=== PATIENT | female | born 1975 | race Caucasian/White ===

== ENCOUNTER 2017-09-19 09:17 | Emergency (ER) | payer OTHER ==
--- OUTSIDE RECORDS SUMMARY | 2017-09-19 09:28 | XMS REPORT | Clinical Summary ---
:1975 Author Organization [facility] Address [address] [place] [address] Care Team Providers Name Role Phone Darwin Mahoney MD Primary Care Provider Allergies Active Allergy Reactions Severity Noted Date Comments Codeine 09/22/2015 Penicillins 09/22/2015 Hydrocodone-Acetaminophen 09/22/2015 Current Medications Prescription Sig. Disp. Refills Start Date End Date Status ibuprofen Take 200 mg by Active (ADVIL,MOTRIN) 200 MG mouth every 6 tablet (six) hours as needed for mild pain. divalproex (DEPAKOTE) Take 500 mg by Active 500 MG 24 hr tablet mouth. 2 tabs at night omeprazole (PriLOSEC) Take 40 mg by Active 40 MG capsule mouth daily. SILENOR 3 mg tablet Take 1 tablet 0 05/14/2017 Active by mouth nightly. ALPRAZolam (XANAX) 1 Take 1 mg by Active MG tablet mouth 3 (three) times a day. propranolol (INDERAL) Take 20 mg by Active 20 MG tablet mouth 2 (two) times a day. PROVENTIL HFA 90 Inhale 1 puff 18 g 2 07/22/2017 Active mcg/actuation every 6 (six) inhalerIndications: hours as Chronic obstructive needed for pulmonary disease, shortness of unspecified COPD type breath. cariprazine (VRAYLAR) Take 4.5 mg by Active 4.5 mg capsule mouth daily. levothyroxine Take 1 tablet 30 tablet 2 08/21/2017 Active (SYNTHROID, LEVOXYL) (25 mcg total) 8 25 mcg by mouth every tabletIndications: morning for 30 Hypothyroidism, days. unspecified type furosemide (LASIX) 20 Take 1 tablet 60 tablet 1 08/21/2017 Active mg tabletIndications: (20 mg total) 9 Leg swelling by mouth 2 (two) times a day as needed (fluid retention). albuterol (VENTOLIN Inhale 2 puffs 1 Inhaler 5 09/17/2017 Active HFA) 90 mcg/actuation every 6 (six) 9 inhaler hours as needed for wheezing. INVEGA SUSTENNA 156 INJECT 1 0 07/15/2015 Discontinued mg/mL syringe INJECTION IM 8 ONCE ON 07/18/2015 sertraline (ZOLOFT) Take 50 mg by Discontinued 50 MG tablet mouth daily. 8 diazePAM (VALIUM) 5 Take 5 mg by Discontinued MG tablet mouth every 8 8 (eight) hours as needed for anxiety. QUEtiapine (SEROquel) Take 200 mg by Discontinued 200 MG tablet mouth nightly. 8 3 tabs at night benztropine Take 1 mg by Discontinued (COGENTIN) 1 MG mouth daily. 8 tablet DIPHENHYDRAMINE HCL Take by mouth. Discontinued (BENADRYL ORAL) 2 tabs at 8 night levothyroxine Take 1 tablet 30 tablet 2 06/29/2016 Discontinued (SYNTHROID, LEVOXYL) (25 mcg total) 8 25 mcg by mouth every tabletIndications: morning for 30 Hypothyroidism, days. unspecified levothyroxine Take 1 tablet 30 tablet 0 09/10/2016 Discontinued (SYNTHROID, LEVOXYL) (25 mcg total) 7 25 mcg tablet by mouth every morning for 30 days. levothyroxine Take One half 45 tablet 0 09/20/2016 Discontinued (SYNTHROID, LEVOXYL) ( 1/2) tbl 7 75 mcg daily am tabletIndications: Hypothyroidism, unspecified levothyroxine Take One half 45 tablet 0 01/28/2017 Discontinued (SYNTHROID, LEVOXYL) ( 1/2) tbl 8 75 mcg tablet daily am ARIPiprazole Take 15 mg by Discontinued (ABILIFY) 15 MG mouth daily. 8 tablet levothyroxine Take 1 tablet 30 tablet 2 03/15/2017 Discontinued (SYNTHROID, LEVOXYL) (25 mcg total) 8 25 mcg by mouth every tabletIndications: morning for 30 Hypothyroidism, days. unspecified type sertraline (ZOLOFT) Take 25 mg by Discontinued 25 MG tablet mouth daily. 8 azithromycin Take 2 tablets 6 tablet 0 05/22/2017 (ZITHROMAX) 250 MG the first day, 8 tabletIndications: then 1 tablet Chronic obstructive daily for 4 pulmonary disease, days. unspecified COPD type albuterol (PROAIR Inhale 1 puff 18 g 1 05/22/2017 Discontinued HFA,PROVENTIL every 6 (six) 8 HFA,VENTOLIN HFA) 90 hours as mcg/actuation needed for inhalerIndications: shortness of Chronic obstructive breath. pulmonary disease, unspecified COPD type predniSONE Take 1 tablet 5 tablet 0 05/22/2017 (DELTASONE) 20 mg (20 mg total) 8 tabletIndications: by mouth daily Chronic obstructive for 5 days. pulmonary disease, unspecified COPD type Active Problems Problem Noted Date Obesity, unspecified obesity severity, unspecified obesity type 08/21/2017 Thrombocytopenia 05/23/2017 Tremor 03/15/2017 Overview: 05/19 pt saw neurologist who diagnosed w Parkinson ds Palpitations 06/27/2016 Overview: 02/16 MCNULTY was negative Gastroesophageal reflux disease without esophagitis 02/15/2016 Hypothyroidism 09/22/2015 Overview: 03/29/2017 US: Mildly heterogeneous nonenlarged thyroid gland. Bipolar 1 disorder 09/22/2015 Overview: FU w psych Tobacco use 09/22/2015 Encounters Date Type Specialty Care Team Description 09/17/2017 Telephone Family Medicine Caroline Priest RN 09/02/2017 Office Visit Cardiology Yvette Gunter, Essential hypertension ( Primary Dx); Pain in both lower extremities; Edema, unspecified type 08/27/2017 Office Visit Family Medicine Maru, Tremor (Primary Dx); MD Darwin Tobacco use 08/27/2017 Telephone Family Darwin Montes MD 08/21/2017 Office Visit Family Juwan Mahoney, Hypothyroidism, unspecified type (Primary Dx); MD Darwin Tremor; Palpitations; Bipolar 1 disorder; Tobacco use; Leg swelling; Obesity, unspecified obesity severity, unspecified obesity type; Screening for breast cancer 08/19/2017 Lab Lab [facility], Hypothyroidism, unspecified type; MD Darwin Screening for rheumatic disorder 07/22/2017 Refill Family Medicine Maru, Chronic obstructive MD Darwin pulmonary disease, unspecified COPD type 06/10/2017 Telephone Family Medicine Darwin Mahoney MD 06/06/2017 Hospital Encounter Fadi Lorenzo, essential Joseph Bills MD 06/06/2017 Hospital Encounter Fadi Lorenzo essential Lyndon F., MD 06/06/2017 Ancillary Orders Fadi Lorenzo essential Lyndon F., MD 05/28/2017 Transcribe Orders Radiology Fadi Elizabeth essential Lyndon F., MD (Primary Dx) 05/27/2017 Telephone Internal Medicine Darwin Mahoney MD 05/24/2017 Lab Lab [facility] Hypothyroidism, unspecified type; MD Darwin Screening for rheumatic disorder 05/23/2017 Orders Only Family Medicine Lisseth Brito MD 05/22/2017 Office Visit Family Medicine Maru, Hypothyroidism, unspecified type (Primary Dx); MD Darwin Palpitations; Tremor; Bipolar 1 disorder; Screening for rheumatic disorder; Chronic obstructive pulmonary disease, unspecified COPD type; Tobacco use 05/22/2017 Telephone Family Medicine Darwin Mahoney MD 03/29/2017 Telephone Family Medicine Darwin Mahoney MD 03/15/2017 Office Visit Family Medicine Maru Hypothyroidism, unspecified type (Primary Dx); MD Darwin Palpitations; Bipolar 1 disorder; Tobacco use 03/08/2017 Lab Lab [facility] Hypothyroidism MD Darwin 01/28/2017 Refill Family Medicine Haleigh Howard LVN 09/20/2016 Orders Only Family Medicine Miriam Mahoney Branka, MD unspecified (Primary Dx) 09/19/2016 Lab Lab [facility], Hypothyroidism MD Darwin after 09/18/2016 Family History Medical History Relation Name Comments Heart disease Father Heart failure Father COPD Mother Heart attack Mother Heart disease Mother Heart failure Mother Hypertension Mother Relation Name Status Comments Brother Alive Father Alive Mother Alive Social History Tobacco Use Types Packs/Day Years Used Date Current Every Day Smoker Cigarettes Smokeless Tobacco: Never Used Tobacco Cessation: Ready to Quit: No; Counseling Given: Yes Comments: 5 wks Alcohol Use Drinks/Week oz/Week Comments No Sex Assigned at Date Recorded Not on file Last Filed Vital Signs Vital Sign Reading Time Taken Blood Pressure 106/61 08/27/2017 11:24 AM CDT Pulse 70 08/27/2017 11:24 AM CDT Temperature 36.4 C (97.5 F) 08/27/2017 11:24 AM CDT Respiratory Rate 18 08/27/2017 11:24 AM CDT Oxygen Saturation 100% 08/27/2017 11:24 AM CDT Inhaled Oxygen Concentration - - Weight 91.2 kg (201 lb) 08/27/2017 11:24 AM CDT Height 165.1 cm (5' 5") 08/27/2017 11:24 AM CDT Body Mass Index 33.45 08/27/2017 11:24 AM CDT Plan of Treatment Date Type Specialty Care Team Description 09/27/2017 Appointment Procedural Cardiology Yvette Gunter MD [address] [facility] [address] [place] [address] [phone] 09/27/2017 Appointment Procedural Cardiology Yvette Gunter MD [address] [facility] [address] [place] [address] [phone] 09/30/2017 Appointment Procedural Cardiology Yvette Gunter MD [address] [facility] [address] [place] [address] [phone] 11/21/2017 Office Visit Family Medicine Darwin Mahoney MD [address] [facility] [address] [place] [address] 11/22/2017 Office Visit Neurology Todd Massey MD [address] [facility] [address] [place] [address] [phone] Health Maintenance Due Date Last Done Comments BREAST CANCER SCREENING 1975 INFLUENZA VACCINE 03/15/2018 Postponed from 10/02/2017 (Patient Refused) CERVICAL CANCER SCREENING 08/21/2018 Postponed from 1997 (Patient Refused) Procedures Procedure Name Priority Date/Time Associated Diagnosis Comments ECG 12-LEAD Routine 09/02/2017 10:09 Essential hypertension Results for this AM CDT procedure are in the results section. THYROID STIMULATING Routine 08/19/2017 11:38 Hypothyroidism, Results for this HORMONE AM CDT unspecified type procedure are in Screening for the results rheumatic disorder section. T4, FREE Routine 08/19/2017 11:38 Hypothyroidism, Results for this AM CDT unspecified type procedure are in Screening for the results rheumatic disorder section. NM BRAIN SPECT W I Routine 06/06/2017 2:36 Tremor, essential Results for this 123 DATSCAN PM CDT procedure are in the results section. SEDIMENTATION RATE Routine 05/24/2017 11:28 Screening for Results for this AM CDT rheumatic disorder procedure are in Hypothyroidism, the results unspecified type section. RHEUMATOID FACTOR Routine 05/24/2017 11:28 Screening for Results for this AM CDT rheumatic disorder procedure are in Hypothyroidism, the results unspecified type section. C-REACTIVE PROTEIN Routine 05/24/2017 11:28 Screening for Results for this AM CDT rheumatic disorder procedure are in Hypothyroidism, the results unspecified type section. URIAH SCREEN W IFA W Routine 05/24/2017 11:28 Screening for Results for this REFLEX TO TITER AM CDT rheumatic disorder procedure are in Hypothyroidism, the results unspecified type section. THYROID PANEL WITH Routine 05/20/2017 12:00 TSH AM CDT US THYROID Routine 03/27/2017 11:40 Hypothyroidism, Results for this AM REGISTERED MEDICAL TRANSCRIPTIONIST unspecified type procedure are in the results section. THYROID STIMULATING Routine 03/08/2017 11:59 Hypothyroidism Results for this HORMONE AM REGISTERED MEDICAL TRANSCRIPTIONIST procedure are in the results section. THYROID STIMULATING Routine 03/08/2017 11:59 Hypothyroidism Results for this HORMONE AM REGISTERED MEDICAL TRANSCRIPTIONIST procedure are in the results section. T4, FREE Routine 03/08/2017 11:59 Hypothyroidism Results for this AM REGISTERED MEDICAL TRANSCRIPTIONIST procedure are in the results section. THYROID STIMULATING Routine 09/19/2016 11:28 Hypothyroidism Results for this HORMONE AM CDT procedure are in the results section. T4, FREE Routine 09/19/2016 11:28 Hypothyroidism Results for this AM CDT procedure are in the results section. T4 Routine 09/19/2016 11:28 Hypothyroidism Results for this AM CDT procedure are in the results section. T3, FREE Routine 09/19/2016 11:28 Hypothyroidism Results for this AM CDT procedure are in the results section. T3 Routine 09/19/2016 11:28 Hypothyroidism Results for this AM CDT procedure are in the results section. after 09/18/2016 Results ECG 12 lead (09/02/2017 10:09 AM) Ventricular rate 99 [facility] Atrial rate 99 [facility] QRSD interval 64 [facility] QT interval 314 [facility] QTC interval 402 [facility] QRS axis 1 71 [facility] T wave axis -82 [facility] EKG impression Sinus tachycardia-Poor R wave progression-ST [facility] MUSE & T wave abnormality, consider inferior ischemia-Abnormal ECG-No previous ECGs available- Performing Organization Address City/[facility] Phone Number [facility] MUSE [address] [place] [address] Thyroid stimulating hormone (08/19/2017 11:38 AM)Only the most recent of4 resultswithin the time period is included. TSH 6.78 (H) mIU/L [facility] [place] Comment: Reference Range > or=20 Years0.40-4.50 Ranges First trimester0.26-2.66 Second trimester 0.55-2.73 Third trimester0.43-2.91 Specimen Blood Resulting Agency Comment Performing Organization Information: Site ID: [id number] Name: [facility] Lab Address: [address] [place] [phone] Director: Milagros Cueva Performing Organization Address [facility] Phone Number [employer] [address] [address] T4, free (08/19/2017 11:38 AM)Only the most recent of3 resultswithin the time period is included. T4, free 1.0 0.8 - 1.8 ng/dL [facility] [place] Specimen Blood Resulting Agency Comment Performing Organization Information: Site ID: [id number] Name: [facility] Lab Address: [address] [place] [phone] Director: Milagros Cueva Performing Organization Address [facility] Number [employer] [address] [address] NM Brain Spect W I 123 Datscan (06/06/2017 2:36 PM) Narrative Performed At PROCEDURE: NM BRAIN SPECT W I 123 DATSCAN RADIANT INDICATION: G25.0 Essential tremor, G25 TECHNIQUE: The patient was pretreated with potassium iodide drops for thyroid protection and then injected with 4 mCi of I-123 DaTscan IV. Brain SPECT imaging was then performed. FINDINGS: Account for slight anatomic asymmetry there is preserved tracer uptake in the caudate and putamen bilaterally. IMPRESSION: Normal DaTscan study. No scintigraphic 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 [facility]-[id number] Procedure Note Interface, Radiology Results Incoming - 06/06/2017 3:04 PM CDT PROCEDURE: NM BRAIN SPECT W I 123 DATSCAN INDICATION: G25.0 Essential tremor, G25 TECHNIQUE: The patient was pretreated with potassium iodide drops for thyroid protection and then injected with 4 mCi of I-123 DaTscan IV. Brain SPECT imaging was then performed. FINDINGS: Account for slight anatomic asymmetry there is preserved tracer uptake in the caudate and putamen bilaterally. IMPRESSION: Normal DaTscan study. No scintigraphic 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 [facility]-[id number] Performing Organization Address City/[facility]/Zipcode Phone Number [facility] [address] [place] [address] URIAH SCREEN W IFA W REFLEX TO TITER (05/24/2017 11:28 AM) URIAH screen NEGATIVE NEGATIVE [facility] Comment: URIAH IFA is a first line screen for detecting the presence of up to approximately 150 autoantibodies in various autoimmune diseases. A negative URIAH IFA result suggests URIAH-associated autoimmune diseases are not present at this time. Visit Physician FAQs for interpretation of all antibodies in the [place], prevalence, and association with diseases at http://education.[employer].com/ faq/IDR271 Specimen Blood Resulting Agency Comment Performing Organization Information: Site ID: [id number] Name: [facility] Lab Address: [address] [place] [address] Director: Dr. Clemente Nolan Performing Organization Address City/[facility] Phone Number [facility] [address] [place] [address] Sedimentation rate (05/24/2017 11:28 AM) Sedimentation rate 1 < OR=20 mm/h [facility] [place] Specimen Blood Resulting Agency Comment Performing Organization Information: Site ID: [id number] Name: [facility] Lab Address: [address] [place] [address] Director: Milagros Cueva MD Performing Organization Address [facility] Phone Number [employer] [place] [address] [place] [address] Rheumatoid factor (05/24/2017 11:28 AM) Rheumatoid factor <14 <14 IU/mL [facility] [place] Specimen Blood Resulting Agency Comment Performing Organization Information: Site ID: [facility] Name: [facility] Lab Address: [address] [place] [phone] Director: Milagros Cueva MD Performing Organization Address City/State/[facility] Phone Number [employer] [address] [address] C-reactive protein (05/24/2017 11:28 AM) CRP 1.3 <8.0 mg/L [facility] [place] Specimen Blood Resulting Agency Comment Performing Organization Information: Site ID: [facility] Name: [employer] [facility] Lab Address: [address] [place] [phone] Director: Milagros Cueva MD Performing Organization Address [facility] Unit[facility] Phone Number [place] [facility] [address] [address] Thyroid Panel With TSH (05/20/2017) Specimen Blood Narrative Performed At US Thyroid (03/27/2017 11:40 AM) Narrative Performed At EXAMINATION:US THYROID RADIANT CLINICAL HISTORY:E03.9 Hypothyroidismunspecified, Abnormal thyroid function tests COMPARISON:None. TECHNIQUE:Sonographic evaluation of the thyroid. FINDINGS: Right lobe measures or by 1.4 x 1.6 cm.Left lobe measures 4.4 x 1.3 x 1.3 cm. The isthmus is 2.4 cm. There are 2 small echogenic foci, likely small calcifications measuring 2 to 3 mm, in the right lower thyroid. There is a 3 mm hypoechoic nodule or cyst in the upper pole the left thyroid. The thyroid gland parenchyma is otherwise mildly heterogeneous. IMPRESSION: Mildly heterogeneous nonenlarged thyroid gland. [facility]-[id number] Procedure Note Hm Interface, Radiology Results Incoming - 03/27/2017 1:10 PM REGISTERED MEDICAL TRANSCRIPTIONIST EXAMINATION: US THYROID CLINICAL HISTORY: E03.9 Hypothyroidism unspecified, Abnormal thyroid function tests COMPARISON: None. TECHNIQUE: Sonographic evaluation of the thyroid. FINDINGS: Right lobe measures or by 1.4 x 1.6 cm. Left lobe measures 4.4 x 1.3 x 1.3 cm. The isthmus is 2.4 cm. There are 2 small echogenic foci, likely small calcifications measuring 2 to 3 mm, in the right lower thyroid. There is a 3 mm hypoechoic nodule or cyst in the upper pole the left thyroid. The thyroid gland parenchyma is otherwise mildly heterogeneous. IMPRESSION: Mildly heterogeneous nonenlarged thyroid gland. [facility]-[id number] Performing Organization Address City/[facility]/Zipcode Phone Number [facility] [address] [place] [address] T3, free (09/19/2016 11:28 AM) T3, free 2.1 (L) 2.3 - 4.2 pg/mL [facility] [place] Specimen Blood Resulting Agency Comment Performing Organization Information: Site ID: [facility] Name: [facility] Lab Address: [address] [place] [phone] Director: Milagros Cueva MD Performing Organization Address [facility] Phone Number [employer] [address] [address] T3 (09/19/2016 11:28 AM) T3 77 76 - 181 ng/dL [facility] Specimen Blood Resulting Agency Comment Performing Organization Information: Site ID: [facility] Name: [employer] [facility] Lab Address: [address] [place] [phone] Director: Milagros Cueva MD Performing Organization Address [facility] Phone Number [place] [facility] [address] [address] T4 (09/19/2016 11:28 AM) T4 6.6 4.5 - 12.0 mcg/dL [facility] [place] Specimen Blood Resulting Agency Comment Performing Organization Information: Site ID: [facility] Name: [facility] Lab Address: [address] [place] [phone] Director: Milagros Cueva MD Performing Organization Address [facility] Phone Number [employer] [address] [address] after 09/18/2016 Insurance Payer Benefit Plan / Group Subscriber ID Type Phone Address MEDICARE MEDICARE PART A AND B xxxxxxxxxx Medicare [place], [place] MEDICAID MEDICAID xxxxxxxxx Medicaid [phone] [place], [address] [place] [address]
[2017-09-19] MEDS ORDERED: NA CHLORIDE 0.9% 500 ML ONE ×2 (09:44→10:34)
[2017-09-19] MEDS ORDERED: DIAZEPAM 2 MG TABLET ONE (09:44)
[2017-09-19] MEDS ORDERED: LEVALBUTEROL 1.25 MG/3 ML NEB ONE (09:50)
[2017-09-19 09:56] LABS: Urine Blood TRACE (NEG); Urine Glucose NEGATIVE (NEG); Urine Protein NEGATIVE (NEG)
[2017-09-19 10:03] LABS: Absolute Lymphocytes (CBC) 1.5 K/uL (0.7-4.9); Absolute Monocytes 0.6 K/uL (0.1-1.3); Absolute Neutrophil 4.4 K/uL (1.8-8.0); Basophils % 1.1 % (0-1.3); Eosinophils % 1.3 % (0-4.4); Hematocrit 41.6 % (36.0-45.0); Lymphocytes % 22.2 % (15.3-44.8); MCH 33.6 pg (27.0-35.0); MCV 98.4 fL (80-100); MPV 7.7 fL (7.6-11.3); Monocytes % 9.4 % (3.3-12.3); RBC Red Blood Cell Count 4.23 M/uL (3.86-4.86)
--- NOTE | 2017-09-19 10:17 | RAD REPORT ---
EXAM DESCRIPTION: RAD - Chest Single View - 09/19/2017 10:02 am CLINICAL HISTORY: DYSPNEA Chest pain. COMPARISON: Chest Single View dated 07/08/2016; CHEST PA AND LAT 2 VIEW dated 04/16/2013; CHEST SINGLE VIEW dated 04/16/2012 FINDINGS: Portable technique limits examination quality. The lungs are grossly clear. The heart is normal in size. No displaced fractures. IMPRESSION: No acute intrathoracic process suspected.
[2017-09-19 10:24] LABS: Magnesium 2.1 mg/dL (1.8-2.4); Potassium 3.4 mmol/L (3.5-5.1)
[2017-09-19 10:25] LABS: Thyroid Stimulating Hormone 6.73 uIU/mL (0.36-3.74)
[2017-09-19] MEDS ORDERED: POTASSIUM CL SA 10 MEQ TAB PO ONE (10:34)
[2017-09-19 11:41] LABS: Blood Morphology Comment NOT SEEN (NOT SEEN); Platelet Estimate ADEQ; Urine White Blood Cell Casts 0
--- NOTE | 2017-09-19 12:53 | ER ---
Nurse's Notes [facility] Name: Pratibha Howard Age: 42 yrs Sex: Female : 1975 Arrival Date: 09/19/2017 Time: 09:19 Bed 15 Private MD: Out, [facility] Diagnosis: Palpitations;Shortness of breath Presentation: 09/19 09:21 Presenting complaint: Patient states: She is having SOB and palpitations since 0730 rb1 this morning. 09:43 Transition of care: patient was not received from another setting of care. Onset of ph symptoms was September 19, 2017. Risk Assessment: Do you want to hurt yourself or someone else? Patient reports no desire to harm self or others. Initial Sepsis Screen: Does the patient meet any 2 criteria? No. Patient's initial sepsis screen is negative. Does the patient have a suspected source of infection? No. Patient's initial sepsis screen is negative. Care prior to arrival: None. 09:43 Method Of Arrival: Ambulatory 09:43 Acuity: RAFA 3 ph Triage Assessment: 09:21 General: Appears comfortable, obese, Behavior is anxious, Denies fever. Pain: Complains rb1 of pain in anterior aspect of right upper chest Pain currently is 7 out of 10 on a pain scale. Pain began 0730. Neuro: Level of Consciousness is awake, alert, obeys commands, Oriented to person, place, time, situation. Cardiovascular: Capillary refill < 3 seconds is brisk in bilateral fingers Rhythm is sinus tachycardia. Respiratory: Reports shortness of breath at rest Airway is patent Respiratory effort is even, labored, Respiratory pattern is regular, symmetrical, Onset: The symptoms/episode began/occurred this morning, the patient has mild shortness of breath. GI: Reports nausea. : No signs and/or symptoms were reported regarding the genitourinary system. Derm: Skin is pink, warm \T\ dry. Musculoskeletal: Range of motion: intact in all extremities. 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 rb1 Historical: - Allergies: 09:43 Codeine; ph 09:43 PENICILLINS; ph 09:43 Trazodone; ph 09:21 Hydrocodone-Acetaminophen; rb1 - Home Meds: 09:21 Benadryl 25 mg Oral cap 2 caps once daily [Active]; Depakote ER 250 mg Oral Tb24 2 tabs rb1 once daily [Active]; Cogentin Oral 1 mg daily [Active]; Invega Sustenna 234 mg/1.5 mL intramuscular syrg 1.5 mL once moly [Active]; levothyroxine 25 mcg tab 1 tab once daily [Active]; Furosemide Oral [Active]; Xanax Oral [Active]; Vraylar oral oral [Active]; - PMHx: 09:43 Anxiety; Bipolar disorder; Hypothyroidism; ph - PSHx: 09:21 None; rb1 - Immunization history:: Adult Immunizations up to date. - Social history:: Smoking status: Patient uses tobacco products, smokes one-half pack cigarettes per day. - Family history:: not pertinent. - Ebola Screening: : No symptoms or risks identified at this time. - Hospitalizations: : No recent hospitalization is reported. Screenin:44 Abuse screen: Denies threats or abuse. Denies injuries from another. Nutritional ph screening: No deficits noted. Tuberculosis screening: No symptoms or risk factors identified. Fall Risk None identified. Assessment: 09:21 General: See triage assessment. Cardiovascular: Capillary refill < 3 seconds is brisk rb1 in bilateral fingers. Cardiovascular: Rhythm is sinus tachycardia. Respiratory: Airway is patent Respiratory effort is even, labored, Respiratory pattern is regular, symmetrical, Breath sounds with wheezes bilaterally. 10:25 Reassessment: Patient and/or family updated on plan of care and expected duration. Pain mb3 level reassessed. Patient is alert, oriented x 3, equal unlabored respirations, skin warm/dry/pink. Patient states symptoms have improved. 11:39 Reassessment: Patient and/or family updated on plan of care and expected duration. Pain mb3 level reassessed. Patient is alert, oriented x 3, equal unlabored respirations, skin warm/dry/pink. Patient states feeling better. Patient states symptoms have improved. Vital Signs: 09:21 BP 140 / 106; Pulse 115; Resp 22; Temp 97.4; Pulse Ox 100% on R/A; Weight 90.72 kg (R); rb1 Height 5 ft. 0 in. (152.40 cm) (R); Pain 7/10; 10:24 BP 112 / 40; Pulse 114; Resp 20; Pulse Ox 97% on R/A; mb3 11:39 BP 108 / 50; Pulse 103; Resp 17; Pulse Ox 98% on R/A; mb3 12:22 Pulse 98; rn 13:06 BP 102 / 64; Pulse 87; Resp 16; Pulse Ox 97% on R/A; mb3 09:21 Body Mass Index 39.06 (90.72 kg, 152.40 cm) rb1 ED Course: 09:19 Patient arrived in ED. sb2 09:20 Out, of [facility] is Private Physician. sb2 09:20 Nazario Gonzales MD is Attending Physician. rn 09:28 Missed attempt(s): 22 gauge in left antecubital area. rb1 09:38 EKG done, by technical supervisor. reviewed by Nazario Gonzales MD. at1 09:42 Arm band placed on. EKG completed in triage. Results shown to MD. ph 09:44 Triage completed. ph 09:44 Patient has correct armband on for positive identification. Placed in gown. Bed in low ph position. Call light in reach. Side rails up X 1. Pulse ox on. NIBP on. Warm blanket given. 09:54 Shakeel Castillo, RN is Primary Nurse. mb3 10:00 XRAY Chest (1 view) In Process Unspecified. EDMS 10:15 Inserted saline lock: 22 gauge in right antecubital area, using aseptic technique. mb3 10:29 Urine --Ancillary (enter results) Sent. mb3 10:29 Urine Dipstick--Ancillary (enter results) Sent. mb3 11:11 EKG done, by technical supervisor. reviewed by Nazario Gonzales MD Repeat EKG. at1 13:07 No provider procedures requiring assistance completed. IV discontinued, intact, mb3 bleeding controlled, No redness/swelling at site. Pressure dressing applied. Administered Medications: 09:47 Drug: NS 0.9% 500 ml Route: IV; Rate: bolus; Site: left antecubital; rb1 13:10 Follow up: Response: No adverse reaction; IV Status: Completed infusion; IV Intake: mb3 500ml 09:47 Drug: Valium 2 mg Route: PO; rb1 13:10 Follow up: Response: No adverse reaction mb3 09:47 Drug: Xopenex 1.25 mg Route: Inhalation; rb1 13:10 Follow up: Response: No adverse reaction mb3 10:30 Drug: Potassium Chloride 40 mEq Route: PO; mb3 13:09 Follow up: Response: No adverse reaction mb3 10:36 Drug: NS 0.9% 500 ml Route: IV; Rate: bolus; Site: right antecubital; mb3 13:09 Follow up: Response: No adverse reaction; IV Status: Completed infusion; IV Intake: mb3 500ml Intake: 13:09 IV: 500ml; Total: 500ml. mb3 13:10 IV: 500ml; Total: 1000ml. mb3 Outcome: 12:52 Discharge ordered by . rn 13:06 Discharged to home ambulatory, with family. mb3 13:06 Condition: stable 13:06 Discharge instructions given to patient, Instructed on discharge instructions, follow up and referral plans. Demonstrated understanding of instructions, follow-up care. 13:11 Patient left the ED. mb3 Signatures: Dispatcher [employer] EDMS Nazario Gonzales MD MD rn gonzales, Amanda, olive packer EKG Tat1 Maru Walton RN RN ph Jenny Keating, RN RN rb1 Maryse Salamanca sb2 Shakeel Castlilo RN RN mb3 Corrections: (The following items were deleted from the chart) 10:00 09:21 Respiratory: Airway is patent Respiratory effort is even, unlabored, Respiratory rb1 pattern is regular, symmetrical, Breath sounds with wheezes bilaterally. rb1 10:01 09:21 Respiratory: Reports shortness of breath at rest Onset: The symptoms/episode rb1 began/occurred this morning, the patient has mild shortness of breath rb1
--- NOTE | 2017-09-19 12:54 | EDPHYS ---
Physician Documentation [facility] Name: Pratibha Howard Age: 42 yrs Sex: Female : 1975 Arrival Date: 09/19/2017 Time: 09:19 Bed 15 Private MD: Out, [facility] ED Physician Nazario Gonzales HPI: 09/19 09:35 This 42 yrs old Female presents to ER via Unassigned with complaints of rn Palpitations, Shortness Of Breath. 09:35 The patient presents with a history of heart racing. Context: The symptoms occur at rn rest. Onset: The symptoms/episode began/occurred this morning, at 07:30. Duration: The patient or guardian reports a single episode, that is still ongoing. Associated signs and symptoms: Pertinent positives: SOB, Pertinent negatives: cough, fever, syncope, vomiting. Severity of symptoms: At their worst the symptoms were moderate in the emergency department the symptoms are unchanged. The patient has experienced similar episodes in the past. Reports showering, around 0730 today with palpitations, assoc with sob, + smoker, has had this before with unknown diagnosis, no chest pain, constant, not worse/better. . 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 rb1 Historical: - Allergies: 09:43 Codeine; ph 09:43 PENICILLINS; ph 09:43 Trazodone; ph 09:21 Hydrocodone-Acetaminophen; rb1 - Home Meds: 09:21 Benadryl 25 mg Oral cap 2 caps once daily [Active]; Depakote ER 250 mg Oral Tb24 2 tabs rb1 once daily [Active]; Cogentin Oral 1 mg daily [Active]; Invega Sustenna 234 mg/1.5 mL intramuscular syrg 1.5 mL once moly [Active]; levothyroxine 25 mcg tab 1 tab once daily [Active]; Furosemide Oral [Active]; Xanax Oral [Active]; Vraylar oral oral [Active]; - PMHx: 09:43 Anxiety; Bipolar disorder; Hypothyroidism; ph - PSHx: 09:21 None; rb1 - Immunization history:: Adult Immunizations up to date. - Social history:: Smoking status: Patient uses tobacco products, smokes one-half pack cigarettes per day. - Family history:: not pertinent. - Ebola Screening: : No symptoms or risks identified at this time. - Hospitalizations: : No recent hospitalization is reported. ROS: 09:35 Constitutional: Negative for fever, chills, and weight loss, Eyes: Negative for injury, rn pain, redness, and discharge, Neck: Negative for injury, pain, and swelling, Cardiovascular: Negative for chest pain Respiratory: + sob, neg for cough Abdomen/GI: Negative for abdominal pain, nausea, vomiting, diarrhea, and constipation, MS/Extremity: Negative for injury and deformity, Skin: Negative for injury, rash, and discoloration, Neuro: Negative for headache, weakness, numbness, tingling, and seizure, + tremor (at baseline) Exam: 09:41 Constitutional: This is a well developed, well nourished patient who is awake, alert, rn appears anxious Head/Face: Normocephalic, atraumatic. Eyes: Pupils equal round and reactive to light, extra-ocular motions intact. Lids and lashes normal. Conjunctiva and sclera are non-icteric and not injected. Cornea within normal limits. Periorbital areas with no swelling, redness, or edema. Neck: Trachea midline, no thyromegaly or masses palpated, and no cervical lymphadenopathy. Supple, full range of motion without nuchal rigidity, or vertebral point tenderness. No Meningismus. Cardiovascular: tachycardic, regular, no murmur Respiratory: + mild tachypnea, no retractions, faint exp wheezing throughout Abdomen/GI: Soft, non-tender, with normal bowel sounds. No distension or tympany. No guarding or rebound. No evidence of tenderness throughout. Skin: Warm, dry with normal turgor. Normal color with no rashes, no lesions, and no evidence of cellulitis. MS/ Extremity: Pulses equal, no cyanosis. Neurovascular intact. Full, normal range of motion. Equal circumference. 1+ pitting edema bilateral lower ext. Neuro: Awake and alert, GCS 15, oriented to person, place, time, and situation. Cranial nerves II-XII grossly intact. Motor strength 5/5 in all extremities. Sensory grossly intact. Vital Signs: 09:21 BP 140 / 106; Pulse 115; Resp 22; Temp 97.4; Pulse Ox 100% on R/A; Weight 90.72 kg (R); rb1 Height 5 ft. 0 in. (152.40 cm) (R); Pain 7/10; 10:24 BP 112 / 40; Pulse 114; Resp 20; Pulse Ox 97% on R/A; mb3 11:39 BP 108 / 50; Pulse 103; Resp 17; Pulse Ox 98% on R/A; mb3 12:22 Pulse 98; rn 13:06 BP 102 / 64; Pulse 87; Resp 16; Pulse Ox 97% on R/A; mb3 09:21 Body Mass Index 39.06 (90.72 kg, 152.40 cm) rb1 MDM: 09:22 Patient medically screened. rn 11:21 ED course: No change in CXR compared to previous, no change in heart size/cardiomegaly. rn Pt already on lasix, has outpt ECHo scheduled to be performed soon. Similar episodes in past without clear diagnosis, possible anxiety, normal neuro exam. Normal cardiac markers, neg d-dimer, feels better, plan to hydrate and dc home after repeat trop and ecg.. 12:20 ED course: HR down to 90s. rn 12:50 Data reviewed: vital signs, nurses notes, lab test result(s), EKG, radiologic studies, rn plain films, and as a result, I will discharge patient. Counseling: I had a detailed discussion with the patient and/or guardian regarding: the historical points, exam findings, and any diagnostic results supporting the discharge/admit diagnosis, lab results, radiology results, the need for outpatient follow up, to return to the emergency department if symptoms worsen or persist or if there are any questions or concerns that arise at home. Response to treatment: the patient's symptoms have mildly improved after treatment, and as a result, I will discharge patient. Special discussion: I discussed with the patient/guardian in detail that at this point there is no indication for admission to the hospital. It is understood, however, that if the symptoms persist or worsen the patient needs to return immediately for re-evaluation. 09/19 09:35 Order name: Basic Metabolic Panel; Complete Time: 10: rn 09/19 09:35 Order name: CBC with Diff; Complete Time: 11:44 rn 09/19 09:35 Order name: Ckmb; Complete Time: 10: rn 09/19 09:35 Order name: CPK; Complete Time: 10: rn 09/19 09:35 Order name: Magnesium; Complete Time: 10: rn 09/19 09:35 Order name: NT PRO-BNP; Complete Time: 10:27 rn 09/19 09:35 Order name: Troponin (emerg Dept Use Only); Complete Time: 10:27 rn 09/19 09:35 Order name: D-Dimer; Complete Time: 10:27 rn 09/19 09:35 Order name: TSH; Complete Time: 10:27 rn 09/19 09:35 Order name: T4 Free; Complete Time: 10:27 rn 09/19 09:37 Order name: Urine Dipstick--Ancillary (enter results) eb 09/19 09:37 Order name: Urine --Ancillary (enter results) eb 09/19 09:38 Order name: Urine Dipstick-Ancillary; Complete Time: 10:27 EDNY 09/19 09:38 Order name: Urine --Ancillary; Complete Time: 10:27 EDNY 09/19 09:35 Order name: Urine Test (obtain specimen); Complete Time: 09:45 rn 09/19 09:35 Order name: XRAY Chest (1 view); Complete Time: 10:27 rn 09/19 09:35 Order name: EKG; Complete Time: 09:35 rn 09/19 09:35 Order name: Cardiac monitoring; Complete Time: 09:45 rn 09/19 09:35 Order name: EKG - Nurse/Tech; Complete Time: 09:45 rn 09/19 09:35 Order name: IV Saline Lock; Complete Time: 10:30 rn 09/19 09:35 Order name: Labs collected and sent; Complete Time: 10:07 rn 09/19 09:35 Order name: O2 Per Protocol; Complete Time: 09:45 rn 09/19 10:07 Order name: CBC Smear Scan; Complete Time: 11:44 EDMS 09/19 11:04 Order name: EKG; Complete Time: 11:05 rn 09/19 11:45 Order name: Troponin (emerg Dept Use Only); Complete Time: 12:50 rn 09/19 09:35 Order name: O2 Sat Monitoring; Complete Time: 09:45 rn 09/19 09:35 Order name: Urine Dipstick-Ancillary (obtain specimen); Complete Time: 09:46 rn 09/19 11:04 Order name: EKG - Nurse/Tech; Complete Time: 13:09 rn Administered Medications: 09:47 Drug: NS 0.9% 500 ml Route: IV; Rate: bolus; Site: left antecubital; rb1 13:10 Follow up: Response: No adverse reaction; IV Status: Completed infusion; IV Intake: mb3 500ml 09:47 Drug: Valium 2 mg Route: PO; rb1 13:10 Follow up: Response: No adverse reaction mb3 09:47 Drug: Xopenex 1.25 mg Route: Inhalation; rb1 13:10 Follow up: Response: No adverse reaction mb3 10:30 Drug: Potassium Chloride 40 mEq Route: PO; mb3 13:09 Follow up: Response: No adverse reaction mb3 10:36 Drug: NS 0.9% 500 ml Route: IV; Rate: bolus; Site: right antecubital; mb3 13:09 Follow up: Response: No adverse reaction; IV Status: Completed infusion; IV Intake: mb3 500ml Disposition: 09/19/17 12:52 Discharged to Home. Impression: Palpitations, Shortness of breath. - Condition is Stable. - Discharge Instructions: Palpitations, Shortness of Breath. - Medication Reconciliation Form, Thank You Letter, Antibiotic Education, Prescription Opioid Use form. - Follow up: Private Physician; When: As needed; Reason: Recheck today's complaints, Re-evaluation by your physician. - Problem is new. - Symptoms have improved. Signatures: Dispatcher [employer] EDMS Nazario Gonzales MD MD rn Hall, Patricia, RN RN Jenny Alvarez RN RN Shakeel Morales RN RN mb3 Corrections: (The following items were deleted from the chart) 13:11 12:52 09/19/2017 12:52 Discharged to Home. Impression: Palpitations; Shortness of mb3 breath. Condition is Stable. Forms are Medication Reconciliation Form, Thank You Letter, Antibiotic Education, Prescription Opioid Use. Follow up: Private Physician; When: As needed; Reason: Recheck today's complaints, Re-evaluation by your physician. Problem is new. Symptoms have improved. rn
[2017-09-19 13:15] VITALS: TEMP 97.4
[2017-09-19 13:19] VITALS: BP 102/64; O2SAT 97
--- NOTE | 2017-09-19 13:52 | EKG ---
Test Date: 2017-09-19 Test Time: 09:32:20 Stove Mechanic: ZOE MEASUREMENT RESULTS: Intervals: Rate: 108 VT: 128 QRSD: 68 QT: 320 QTc: 428 [place]: P: 50 VT: 128 QRS: 69 T: 23 INTERPRETIVE STATEMENTS: Sinus tachycardia Low voltage QRS Septal infarct, age undetermined Abnormal ECG Compared to ECG 07/08/2016 16:58:59 Low QRS voltage now present Sinus rhythm no longer present Myocardial infarct finding still present Electronically Signed On 09-19-17 13:51:38 CDT by Reid Diaz
--- NOTE | 2017-09-19 13:52 | EKG ---
Test Date: 2017-09-19 Test Time: 11:05:12 Machine Ii Engraver: ZOE MEASUREMENT RESULTS: Intervals: Rate: 115 AK: 134 QRSD: 72 QT: 290 QTc: 401 [place]: P: 74 AK: 134 QRS: 72 T: -75 INTERPRETIVE STATEMENTS: Sinus tachycardia Low voltage QRS Nonspecific ST and T wave abnormality Abnormal ECG Compared to ECG 09/19/2017 09:32:20 ST (T wave) deviation now present Myocardial infarct finding no longer present Electronically Signed On 09-19-17 13:51:34 CDT by Reid Diaz
== END 2017-09-19 13:11 | disposition home or self-care (01) ==
LOC: ER 09:17
DX: R06.02 Shortness of breath (principal); E03.9 Hypothyroidism, unspecified; F41.9 Anxiety disorder, unspecified; F31.9 Bipolar disorder, unspecified; Z88.0 Allergy status to penicillin; Z88.5 Allergy status to narcotic agent; Z88.6 Allergy status to analgesic agent; Z72.0 Tobacco use
CPT/HCPCS: 36415; 71045; 80048; 81003; 81025; 82550; 82553; 83735; 83880; 84439; 84443; 84484; 85025; 85379; 93005; 96360; 96361; 99285

== ENCOUNTER 2017-12-26 04:46 | Emergency (ER) | payer OTHER ==
--- OUTSIDE RECORDS SUMMARY | 2017-12-26 04:48 | XMS REPORT | Clinical Summary ---
:1975 Author Organization [facility] Address [address] [place] [address] Care Team Providers Name Role Phone Darwin Mahoney MD Primary Care Provider Allergies Active Allergy Reactions Severity Noted Date Comments Codeine 09/22/2015 Penicillins 09/22/2015 Hydrocodone-Acetaminophen 09/22/2015 Current Medications Prescription Sig. Disp. Refills Start Date End Date Status ibuprofen Take 200 mg by Active (ADVIL,MOTRIN) 200 mouth every 6 MG tablet (six) hours as needed for mild pain. omeprazole Take 40 mg by Active (PriLOSEC) 40 MG mouth as capsule needed. SILENOR 3 mg tablet Take 1 tablet 0 05/14/2017 Active by mouth nightly. ALPRAZolam (XANAX) 1 Take 1 mg by Active MG tablet mouth 3 (three) times a day. PROVENTIL HFA 90 Inhale 1 puff 18 g 2 07/22/2017 Active mcg/actuation every 6 (six) inhalerIndications: hours as Chronic obstructive needed for pulmonary disease, shortness of unspecified COPD breath. type (HCC) cariprazine Take 4.5 mg by Active (VRAYLAR) 4.5 mg mouth daily. capsule furosemide (LASIX) Take 1 tablet 60 tablet 1 08/21/2017 Active 20 mg (20 mg total) 9 tabletIndications: by mouth 2 Leg swelling (two) times a day as needed (fluid retention). albuterol (VENTOLIN Inhale 2 puffs 1 Inhaler 5 11/21/2017 Active HFA) 90 every 6 (six) 9 mcg/actuation hours as inhalerIndications: needed for Mild intermittent wheezing. asthma without complication AmANTadine HCl 100 Titrate up to 180 tablet 5 11/22/2017 Active mg tablet 2 pills 3x/day LENNOX HENDRICKS 156 INJECT 1 0 07/15/2015 Discontinued mg/mL syringe INJECTION IM 8 ONCE ON 07/18/2015 sertraline (ZOLOFT) Take 50 mg by Discontinued 50 MG tablet mouth daily. 8 diazePAM (VALIUM) 5 Take 5 mg by Discontinued MG tablet mouth every 8 8 (eight) hours as needed for anxiety. QUEtiapine Take 200 mg by Discontinued (SEROquel) 200 MG mouth nightly. 8 tablet 3 tabs at night benztropine Take 1 mg by Discontinued (COGENTIN) 1 MG mouth daily. 8 tablet divalproex Take 500 mg by Discontinued (DEPAKOTE) 500 MG 24 mouth. 8 hr tablet DIPHENHYDRAMINE HCL Take by mouth. Discontinued (BENADRYL ORAL) 2 tabs at 8 night levothyroxine Take 1 tablet 30 tablet 2 06/29/2016 Discontinued (SYNTHROID, LEVOXYL) (25 mcg total) 8 25 mcg by mouth every tabletIndications: morning for 30 Hypothyroidism, days. unspecified levothyroxine Take One half 45 tablet [...] Discontinued 25 MG tablet mouth daily. 8 propranolol Take 20 mg by Discontinued (INDERAL) 20 MG mouth 2 (two) 8 tablet times a day. azithromycin Take 2 tablets 6 tablet 0 05/22/2017 (ZITHROMAX) 250 MG the first day, 8 tabletIndications: then 1 tablet Chronic obstructive daily for 4 pulmonary disease, days. unspecified COPD type (HCC) albuterol (PROAIR Inhale 1 puff 18 g 1 05/22/2017 Discontinued HFA,PROVENTIL every 6 (six) 8 HFA,VENTOLIN HFA) 90 hours as mcg/actuation needed for inhalerIndications: shortness of Chronic obstructive breath. pulmonary disease, unspecified COPD type (HCC) predniSONE Take 1 tablet 5 tablet 0 05/22/2017 (DELTASONE) 20 mg (20 mg total) 8 tabletIndications: by mouth daily Chronic obstructive for 5 days. pulmonary disease, unspecified COPD type (HCC) levothyroxine Take 1 tablet 30 tablet 2 08/21/2017 Discontinued (SYNTHROID, LEVOXYL) (25 mcg total) 8 25 mcg by mouth every tabletIndications: morning for 30 Hypothyroidism, days. unspecified type albuterol (VENTOLIN Inhale 2 puffs 1 Inhaler 5 09/17/2017 Discontinued HFA) 90 every 6 (six) 8 mcg/actuation hours as inhaler needed for wheezing. levothyroxine Take 1 tablet 30 tablet 11 11/21/2017 (SYNTHROID, LEVOXYL) (25 mcg total) 8 25 mcg by mouth every tabletIndications: morning for 30 Hypothyroidism, days. unspecified type diclofenac Take 1 tablet 60 tablet 1 11/21/2017 (VOLTAREN) 75 MG EC (75 mg total) 8 tabletIndications: by mouth 2 Midline low back (two) times a pain without day for 30 sciatica, days. unspecified chronicity lidocaine (LIDODERM) Place 1 patch 30 patch 0 11/21/2017 5 %Indications: on the skin 8 Midline low back daily for 30 pain without days. Remove & sciatica, Discard patch unspecified within 12 chronicity hours or as directed by MD Active Problems Problem Noted Date Mild intermittent asthma without complication 11/21/2017 Leg swelling 11/21/2017 Midline low back pain without sciatica 11/21/2017 Obesity, unspecified obesity severity, unspecified obesity type 08/21/2017 Thrombocytopenia (HCC) 05/23/2017 Tremor 03/15/2017 Overview: 05/19 pt saw neurologist who diagnosed w Parkinson ds Palpitations 06/27/2016 Overview: 02/16 MCNULTY was negative Gastroesophageal reflux disease without esophagitis 02/15/2016 Hypothyroidism 09/22/2015 Overview: 03/29/2017 US: Mildly heterogeneous nonenlarged thyroid gland. Bipolar 1 disorder (HCC) 09/22/2015 Overview: FU w psych Tobacco use 09/22/2015 Resolved Problems Problem Noted Date Resolved Date Chest pain 10/03/2017 11/21/2017 Encounters Date Type Specialty Care Team Description 11/22/2017 Office Visit Neurology Todd Massey Neuroleptic-induced Parkinsonism (Primary Dx); MD Gaurang Tremor 11/21/2017 Office Visit Family Medicine aMru, Hypothyroidism, unspecified type (Primary Dx); MD Darwin Mild intermittent asthma without complication; Midline low back pain without sciatica, unspecified chronicity; Bipolar 1 disorder; Tremor; Palpitations; Leg swelling; Tobacco use; Need for vaccination 11/11/2017 Office Visit Cardiology Yvette Gunter, Edema, unspecified type ( Primary Dx); Palpitation 11/06/2017 Telephone Internal Medicine Bindu Aguiar MD 11/05/2017 Lab Lab Bindu Aguiar Bilateral leg edema MD Ramon 11/05/2017 Office Visit Internal Medicine Bindu Aguiar Bilateral leg edema (Primary Dx); MD Ramon Hypothyroidism, unspecified type 11/05/2017 Telephone Family Medicine Cesar Hall LVN 11/01/2017 Lab Lab Bindu Aguiar MD 11/01/2017 Telephone Family Medicine Darwin Mahoney MD 11/01/2017 Telephone Family Medicine Concha Garg MA 11/01/2017 Orders Only Internal Medicine Bindu Aguiar Edema, unspecified MD Ramon type (Primary Dx) 11/01/2017 Telephone Family Medicine Concha Garg MA 10/08/2017 Telephone Cardiology Dona Cox (holter) WALTER Francis 10/07/2017 Orders Only Procedural Nazario Jupiter Palpitations Cardiology 10/03/2017 Office Visit Cardiology Yvette Gunter, Palpitations (Primary MD Dx) 09/30/2017 Hospital Encounter Procedural Yvette Gunter, Essential hypertension; Cardiology Pain in both lower extremities; Edema, unspecified type 09/27/2017 Hospital Encounter Procedural Yvette Gunter, Essential hypertension; Cardiology MD Pain in both lower extremities; Edema, unspecified type 09/27/2017 Hospital Encounter Procedural Yvette Gunter Min, Essential hypertension; Cardiology MD Pain in both lower extremities; Edema, unspecified type 09/17/2017 Telephone Family Medicine Caroline Priest RN 09/02/2017 Office Visit Cardiology Yvette Gunter, Essential hypertension ( Primary Dx); Pain in both lower extremities; Edema, unspecified type 08/27/2017 Office Visit Family Medicine Maru Tremor (Primary Dx); MD Darwin Tobacco use 08/27/2017 Telephone Family Medicine Darwin Mahoney MD 08/21/2017 Office Visit Family Medicine Maru, Hypothyroidism, unspecified type (Primary Dx); MD Darwin Tremor; Palpitations; Bipolar 1 disorder; Tobacco use; Leg swelling; Obesity, unspecified obesity severity, unspecified obesity type; Screening for breast cancer 08/19/2017 Lab Lab Maru, Hypothyroidism, unspecified type; MD Darwin Screening for rheumatic disorder 07/22/2017 Refill Family Medicine Maru, Chronic obstructive MD Darwin pulmonary disease, unspecified COPD type 06/10/2017 Telephone Family Darwin Montes MD 06/06/2017 Hospital Encounter Fadi Lorenzo essential Lyndon F., MD 06/06/2017 Hospital Encounter Fadi Lorenzo essential Lyndon F., MD 06/06/2017 Ancillary Orders Fadi Lorenzo essential Lyndon F., MD 05/28/2017 Transcribe Orders Fadi Lorenzo essential Lyndon F., MD (Primary Dx) 05/27/2017 Telephone Internal Medicine Darwin Mahoney MD 05/24/2017 Lab Lab Maru, Hypothyroidism, unspecified type; MD Darwin Screening for rheumatic disorder 05/23/2017 Orders Only Family Medicine Lisseth Brito MD 05/22/2017 Office Visit Family Medicine Maru, Hypothyroidism, unspecified type (Primary Dx); MD Darwin Palpitations; Tremor; Bipolar 1 disorder; Screening for rheumatic disorder; Chronic obstructive pulmonary disease, unspecified COPD type; Tobacco use 05/22/2017 Telephone Family Darwin Montes MD 03/29/2017 Telephone Family Medicine Darwin Mahoney MD 03/15/2017 Office Visit Family Medicine Maru, Hypothyroidism, unspecified type (Primary Dx); MD Darwin Palpitations; Bipolar 1 disorder; Tobacco use 03/08/2017 Lab Lab Maru Hypothyroidism MD Darwin 01/28/2017 Refill Family Medicine Haleigh Howard LVN after 12/25/2016 Immunizations Name Dates Previously Given Next Due INFLUENZA QUAD PF 11/21/2017 Family History Medical History Relation Name Comments Heart disease Father Heart failure Father COPD Mother Heart attack Mother Heart disease Mother Heart failure Mother Hypertension Mother Relation Name Status Comments Brother Alive Father Alive Mother Alive Social History Tobacco Use Types Packs/Day Years Used Date Current Every Day Smoker Cigarettes 1 20 Smokeless Tobacco: Never Used Tobacco Cessation: Ready to Quit: No; Counseling Given: Yes Comments: 5 wks Alcohol Use Drinks/Week oz/Week Comments Yes Sex Assigned at Date Recorded Not on file Last Filed Vital Signs Vital Sign Reading Time Taken Blood Pressure 114/74 11/22/2017 12:47 PM CDT Pulse 101 11/22/2017 12:47 PM CDT Temperature 36.7 C (98 F) 11/21/2017 1:05 PM CDT Respiratory Rate 18 11/21/2017 1:05 PM CDT Oxygen Saturation 99% 11/21/2017 1:05 PM CDT Inhaled Oxygen Concentration - - Weight 98.6 kg (217 lb 6.4 oz) 11/22/2017 12:46 PM CDT Height 165.1 cm (5' 5") 11/22/2017 12:46 PM CDT Body Mass Index 36.18 11/22/2017 12:46 PM CDT Plan of Treatment Date Type Specialty Care Team Description 05/21/2018 Office Visit Family Darwin Montes MD [address] [facility] [address] [place], [place] [id number] Health Maintenance Due Date Last Done Comments BREAST CANCER SCREENING 1975 CERVICAL CANCER SCREENING 08/21/2018 Postponed from 1997 (Patient Refused) INFLUENZA VACCINE Completed 11/21/2017 Procedures Procedure Name Priority Date/Time Associated Diagnosis Comments T3, FREE Routine 11/05/2017 2:48 Bilateral leg edema Results for this PM CDT procedure are in the results section. T4, FREE Routine 11/05/2017 2:48 Bilateral leg edema Results for this PM CDT procedure are in the results section. THYROID STIMULATING Routine 11/05/2017 2:48 Bilateral leg edema Results for this HORMONE PM CDT procedure are in the results section. BASIC METABOLIC PANEL Routine 11/01/2017 11:08 Edema, unspecified Results for this AM CDT type procedure are in the results section. CV HOLTER MONITOR 48 Routine 10/03/2017 10:00 Palpitations Results for this HOUR AM CDT procedure are in the results section. PV PHYSIOLOGIC Routine 09/30/2017 2:20 Essential Results for this ARTERIAL LOWER PM CDT hypertension procedure are in EXTREMITY COMPLETE Pain in both lower the results extremities section. Edema, unspecified type US DUPLEX VENOUS LOWER Routine 09/27/2017 3:00 Essential Results for this EXTREMITY BILATERAL PM CDT hypertension procedure are in Pain in both lower the results extremities section. Edema, unspecified type ECHOCARDIOGRAM 2D Routine 09/27/2017 1:57 Essential Results for this COMPLETE W MMODE PM CDT hypertension procedure are in SPECTRAL COLOR DOPPLER Pain in both lower the results (54140) extremities section. Edema, unspecified type ECG 12-LEAD Routine 09/02/2017 10:09 Essential Results for this AM CDT hypertension procedure are in the results section. THYROID STIMULATING Routine 08/19/2017 11:38 Hypothyroidism, Results for this HORMONE AM CDT unspecified type procedure are in Screening for the results rheumatic disorder section. T4, FREE Routine 08/19/2017 11:38 Hypothyroidism, Results for this AM CDT unspecified type procedure are in Screening for the results rheumatic disorder section. NM BRAIN SPECT W I 123 Routine 06/06/2017 2:36 Tremor, essential Results for this DATSCAN PM CDT procedure are in the [...] results unspecified type section. THYROID PANEL WITH TSH Routine 05/20/2017 12:00 AM CDT US THYROID Routine 03/27/2017 11:40 Hypothyroidism, Results for this AM [employer] unspecified type procedure are in the results section. THYROID STIMULATING Routine 03/08/2017 11:59 Hypothyroidism Results for this HORMONE AM [employer] procedure are in the results section. THYROID STIMULATING Routine 03/08/2017 11:59 Hypothyroidism Results for this HORMONE AM [employer] procedure are in the results section. T4, FREE Routine 03/08/2017 11:59 Hypothyroidism Results for this AM [employer] procedure are in the results section. after 12/25/2016 Results T3, free (11/05/2017 2:48 PM) T3, free 2.4 2.3 - 4.2 pg/mL [facility] [place] Specimen Blood Other Results Text Performing Organization Information: Site ID: [id number] Name: [facility] Lab Address: [address] [place] [phone] Director: Milagros Cueva Performing Organization Address [facility] [place] [address] Thyroid stimulating hormone (11/05/2017 2:48 PM)Only the most recent of4 resultswithin the time period is included. TSH 2.81 mIU/L [facility] Comment: Reference Range > or=20 Years0.40-4.50 Ranges First trimester0.26-2.66 Second trimester 0.55-2.73 Third trimester0.43-2.91 Specimen Blood Other Results Text Performing Organization Information: Site ID: [facility] Name: [facility] Lab Address: [address] [place] [phone] Director: Milagros Cueva Performing Organization Address [facility] Phone Number [employer] [address] [address] T4, free (11/05/2017 2:48 PM)Only the most recent of3 resultswithin the time period is included. T4, free 1.0 0.8 - 1.8 ng/dL [facility] [place] Specimen Blood Other Results Text Performing Organization Information: Site ID: [id number] Name: [facility] Address: [address] [place] [phone] Director: Milagros Cueva Performing Organization Address [facility] [place] [address] Basic metabolic panel (11/01/2017 11:08 AM) Glucose 84 65 - 99 mg/dL [facility] Comment: [place] Fasting reference interval BUN, whole blood 11 7 - 25 mg/dL [facility] [place] Creatinine 1.00 0.50 - 1.10 mg/dL [facility] [place] EGFR Non-Afr. [place] 70 > OR=60 [facility] mL/min/1.73m2 [place] EGFR 81 > OR=60 [facility] mL/min/1.73m2 [facility] BUN/creatinine ratio NOT APPLICABLE 6 - 22 (calc) [facility] [place] Sodium 140 135 - 146 mmol/L [facility] [place] Potassium 4.5 3.5 - 5.3 mmol/L [facility] [place] Chloride 102 98 - 110 mmol/L [facility] [place] CO2 30 20 - 32 mmol/L [facility] [place] Calcium 9.1 8.6 - 10.2 mg/dL [facility] [place] Specimen Blood Other Results Text Performing Organization Information: Site ID: [id number] Name: [facility] Lab Address: [address] [place] [phone] Director: Milagros Cueva Performing Organization Address [facility] Phone Number [employer] [place] [phone] CV Holter monitor 48 hour (10/03/2017 10:00 AM) Hookup Date [id number] [facility] Hookup Time [id number] [facility] MUSE Acquisition Duration 760896 [facility] MUSE # of Ventricular Beats in Runs 0 [facility] MUSE # OF LONGEST VENTRICULAR BEATS H MUSE # of Supraventricular Beats in 0 [facility] MUSE Runs # of Longest Supraventricular [facility] MUSE Beats Max Heart Rate 159 [facility]USE Min Heart Rate 52 [facility]USE Longest RR 1.390 [facility] MUSE Diagnosis -Basic rhythm Sinus rhythm [facility] M[facility] with frequent Sinus tachycardia--Rare Premature atrial complexes Premature ventricular complexes-several episodes of palpitation : all sinus tachycardia - Narrative Performed At Performing Organization Address City/State/Zipcode Phone Number [facility]USE [address] [phone] Pv physiologic arterial lower extremity complete w rossy (09/30/2017 2:20 PM) Narrative Performed At [facility] Vascular Diagnostic Laboratory Physiologic Arterial Leg Report [id number] [facility] [address], [place] [address] Pat.Name:PRATIBHA HUBBARD.ID:[id number] .Date: 09/30/2017 Refer.MD:YVETTE GUNTER MD Exam Time: 1:40:00 PMStudy Type:Physiologic Leg DOBAge:1975,42Y Sex: FEMALE Sonogrphr: Collazo Vi, RVTPat. Stat.:Outpatient TapeVol: HV, CPT - 4: 07385 Echo Event ID:[id number] Order ID:[id number] Reason for Study:Bilateral leg pain. Procedures:Ankle/brachial pressures, Digit pressures, Non-imaging continuous wave Doppler, PPG waveform tracing, Segmental pressures Race:D SUMMARY: PULSES: RIGHT LEFT Common Femoral + + Popliteal+ + Dorsalis Pedis+ + Posterior Tibial+ + DOPPLER SIGNALS /ANALOG WAVEFORMS: DOPPLER SIGNALS ANALOG WAVEFORMS ARTERY RIGHT LEFT RIGHT LEFT Common Femoral Normal Normal Normal Normal Superficial Femoral Normal NormalNormalNormal PoplitealNormal NormalNormalNormal Posterior Tibial Normal NormalNormal Normal Dorsalis Pedis Normal NormalNormalNormal SEGMENTAL PRESSURE(mmHg): RIGHT LEFT Brachial 94 91 Low [id number] 118 Calf 84466 Ankle DP 95 109 Ankle [id number] Great Toe 8481 ANKLE/BRACHIAL INDEX: RIGHTLEFT Dorsalis Pedis1.011.16 Posterior Tibial0.93 1.17 TOE/BRACHIAL INDEX: RIGHT LEFT 0.890.86 PRELIMINARY FINDINGS: 1. Triphasic Doppler waveform seen, bilaterally. 2. Right ankle/brachial index falls into minimal category for PT, and within normal limit on DP. 3. Left ankle/brachial index is within normal limit. 4. Normal toe/brachial index, bilaterally. PHYSICIAN INTERPRETATION: Bilateral lower extremity arterial exam demonstrates no evidence of significant arterial occlusive disease. The TBI's are within normal range.Right ankle/brachial index falls into minimal category for PT, and within normal limit on DP. Left ankle/brachial index is within normal limit. Signed 09/30/2017 02:51 PM Allen Coe MD, RPVI Procedure Note Interface, Radiology Results In - 09/30/2017 2:51 PM CDT Vascular Diagnostic Laboratory Physiologic Arterial Leg Report [address] [place] [address] Pat.Name: PRATIBHA HUBBARD Pat.ID: [id number] St.Date: 09/30/2017 Refer.MD: YVETTE GUNTER MD Exam Time: 1:40:00 PM Study Type:Physiologic Leg Age: 1 1975,42Y Sex: FEMALE Sonogrphr: Zay Oliveira RVZina Pat. Stat.:Outpatient Tape Vol: HV, CPT - 4: 47589 Echo Event ID:[id number] Order ID: [id number] Reason for Study:Bilateral leg pain. Procedures:Ankle/brachial pressures, Digit pressures, Non-imaging continuous wave Doppler, PPG waveform tracing, Segmental pressures Race: D SUMMARY: PULSES: RIGHT LEFT Common Femoral + + Popliteal + + Dorsalis Pedis + + Posterior Tibial + + DOPPLER SIGNALS / ANALOG WAVEFORMS: DOPPLER SIGNALS ANALOG WAVEFORMS ARTERY RIGHT LEFT RIGHT LEFT Common Femoral Normal Normal Normal Normal Superficial Femoral Normal Normal Normal Normal Popliteal Normal Normal Normal Normal Posterior Tibial Normal Normal Normal Normal Dorsalis Pedis Normal Normal Normal Normal SEGMENTAL PRESSURE (mmHg): RIGHT LEFT Brachial 94 91 Low Thigh 147 118 Calf 96 101 Ankle DP 95 109 Ankle PT 87 110 Great Toe 84 81 ANKLE/BRACHIAL INDEX: RIGHT LEFT Dorsalis Pedis 1.01 1.16 Posterior Tibial 0.93 1.17 TOE/BRACHIAL INDEX: RIGHT LEFT 0.89 0.86 PRELIMINARY FINDINGS: 1. Triphasic Doppler waveform seen, bilaterally. 2. Right ankle/brachial index falls into minimal category for PT, and within normal limit on DP. 3. Left ankle/brachial index is within normal limit. 4. Normal toe/brachial index, bilaterally. PHYSICIAN INTERPRETATION: Bilateral lower extremity arterial exam demonstrates no evidence of significant arterial occlusive disease. The TBI's are within normal range. Right ankle/brachial index falls into minimal category for PT, and within normal limit on DP. Left ankle/brachial index is within normal limit. Signed 09/30/2017 02:51 PM Allen Coe MD, RPVI Performing Organization Address City/State/Zipcode Phone Number [facility] [address] [phone] Pv duplex venous lower extremity (09/27/2017 3:00 PM) Narrative Performed At [facility] Vascular Ultrasound Laboratory Lower Extremity Venous Report [id number]Name:PRATIBHA HUBBARD.ID:[id number] .Date: 09/27/2017 Refer.MD:YVETTE GUNTER MD Exam Time: 1:00:00 PMStudy Type:LE Venous DOBAge:1975,42Y Sex: FEMALE Sonogrphr: Jenny Liang RVTPat. Stat.:Outpatient Room:[facility] 16TapeVol: RF, CPT - 4: 49734 Echo Event ID:[id number] Order ID:[id number] Reason for Study:Shortness of breath. History of bilateral calf edema X 2 months. History of asthma. Procedures:Colorflow, Grayscale/2D, Pulsed wave Doppler Race:D SUMMARY: DUPLEX SCAN OBSERVATIONS Deep VeinsSuperficial Veins RightLeft RightLeft GSV (prox) NormalNormal CFV Normal Normal (above knee) Femoral Normal Normal GSV (dist) Normal Normal Profunda Normal Normal (below knee) Popliteal Normal Normal PT (prox) Not Visualized Not visualizedSSV Normal Normal PT (dist) Normal Normal Peroneal Normal Normal RIGHT: There is normal compressibility with no evidence of echogenic material noted within the lumen of the visualized veins. Colorflow and Doppler signals are normal. LEFT: There is normal compressibility with no evidence of echogenic material noted within the lumen of the visualized veins.Colorflow and Doppler signals are normal. PRELIMINARY FINDINGS 1. Normal venous duplex exam of the visualized veins. PHYSICIAN INTERPRETATION 1.Venous examination of the both lower extremities demonstrates no evidence of venous thrombosis. Signed 09/27/2017 03:12 PM Gaurang Ferris MD Procedure Note Interface, Radiology Results In - 09/27/2017 3:12 PM CDT Vascular Ultrasound Laboratory Lower Extremity Venous Report [id number] [place] [address] Pat.Name: PRATIBHA HUBBARD Pat.ID: [id number] .Date: 09/27/2017 Refer.MD: YVETTE GUNTER MD Exam Time: 1:00:00 PM Study Type:LE Venous Age: 1 1975,42Y Sex: FEMALE Sonogrphr: Jenny Liang RVT Pat. Stat.:Outpatient Room: [facility] 16 Tape Vol: RF, CPT - 4: 39512 Echo Event ID:[id number] Order ID: [id number] Reason for Study:Shortness of breath. History of bilateral calf edema X 2 months. History of asthma. Procedures:Colorflow, Grayscale/2D, Pulsed wave Doppler Race: D SUMMARY: DUPLEX SCAN OBSERVATIONS Deep Veins Superficial Veins Right Left Right Left GSV (prox) Normal Normal CFV Normal Normal (above knee) Femoral Normal Normal GSV (dist) Normal Normal Profunda Normal Normal (below knee) Popliteal Normal Normal PT (prox) Not Visualized Not visualized SSV Normal Normal PT (dist) Normal Normal Peroneal Normal Normal RIGHT: There is normal compressibility with no evidence of echogenic material noted within the lumen of the visualized veins. Colorflow and Doppler signals are normal. LEFT: There is normal compressibility with no evidence of echogenic material noted within the lumen of the visualized veins.Colorflow and Doppler signals are normal. PRELIMINARY FINDINGS 1. Normal venous duplex exam of the visualized veins. PHYSICIAN INTERPRETATION 1. Venous examination of the both lower extremities demonstrates no evidence of venous thrombosis. Signed 09/27/2017 03:12 PM Gaurang Ferris MD Performing Organization Address City/State/Zipcode Phone Number [facility] [address] [place] [address] Echocardiogram complete w contrast and 3D if needed (09/27/2017 1:57 PM) Narrative Performed At [facility] Echocardiography Report [address] [place] [address] Pat.Name:PRATIBHA HUBBARD.ID:[id number] .Date: 09/27/2017 Refer.MD:YVETTE GUNTER MD Exam Time: 1:36:00 PMStudy Type:Routine Echo Height:60inWeight: 200lb BSA: 1.87 m2 DOBAge:1975,42Y Sex: FEMALEBP:98/57 HR:91 bpmSonogrphr: Gale Da Silva RDCS Pat. Stat.:OutpatientStudy Status:Final Echo Event ID:[id number] Order ID:[id number] Reason for Study:RV FUNCTION Procedures:2D Echo, Colorflow Doppler Race:D SUMMARY: LV size is normal. LV EF is normal. RV size is normal. RV systolic function is normal. FINDINGS: LV: LV size is normal. LV EF is normal. Overall wall motion is normal.Estimated EF is 60-64%. RV: RV size is normal. RV systolic function is normal. LA: LA size is normal. RA: RA size is normal. AO: Aortic root diameter is not well visualized. ANÍBAL: No pericardial effusion. AV: Aortic valve not well seen. MV: No structural MV abnormalities noted. PV: Pulmonic valve not well seen. TV: No structural TV abnormalities noted. Bee: Hepatic vein pressure is normal, RA pressure < 5mmHg. Normal diastolicfunction. Other:Insufficient TR jet to estimate PA systolic pressure. MEASUREMENTS: 2D Left Ventricle LVIDd3.2 cm (3.6-5.2) Index1.7 cm/m LA Sng Plane LA Area 11.6 cm2(8.8-23.4) LA Vol24.6 ml Index13.2 ml/m LA LngAx 4.4 cm RA Sng Plane RA Area9.7 cm2(8.3-19.5) RA Vol18.2 ml Index9.7 ml/m RA LngAx 4.3 cm Signed 09/28/2017 01:26 PM Clemente Cho MD Procedure Note Interface, Radiology Results In - 09/28/2017 1:27 PM CDT Echocardiography Report [id number]Name: PRATIBHA HUBBARD.ID: [id number] .Date: 09/27/2017 Refer.MD: YVETTE GUNTER MD Exam Time: 1:36:00 PM Study Type:Routine Echo Height: 60in Weight: 200lb BSA: 1.87 m2 Age: 1 1975,42Y Sex: FEMALE BP: 98/57 HR: 91 bpm Sonogrphr: Gale Da Silva RDCS Pat. Stat.:Outpatient Study Status:Final Echo Event ID:[id number] Order ID: [id number] Reason for Study:RV FUNCTION Procedures:2D Echo, Colorflow Doppler Race: D SUMMARY: LV size is normal. LV EF is normal. RV size is normal. RV systolic function is normal. FINDINGS: LV: LV size is normal. LV EF is normal. Overall wall motion is normal. Estimated EF is 60-64%. RV: RV size is normal. RV systolic function is normal. LA: LA size is normal. RA: RA size is normal. AO: Aortic root diameter is not well visualized. ANÍBAL: No pericardial effusion. AV: Aortic valve not well seen. MV: No structural MV abnormalities noted. PV: Pulmonic valve not well seen. TV: No structural TV abnormalities noted. Bee: Hepatic vein pressure is normal, RA pressure < 5mmHg. Normal diastolic function. Other: Insufficient TR jet to estimate PA systolic pressure. MEASUREMENTS: 2D Left Ventricle LVIDd 3.2 cm (3.6-5.2) Index 1.7 cm/m LA Sng Plane LA Area 11.6 cm2 (8.8-23.4) LA Vol 24.6 ml Index 13.2 ml/m LA LngAx 4.4 cm RA Sng Plane RA Area 9.7 cm2 (8.3-19.5) RA Vol 18.2 ml Index 9.7 ml/m RA LngAx 4.3 cm Signed 09/28/2017 01:26 PM Clemente Cho MD Performing Organization Address City/State/Zipcode Phone Number [facility] [address] [place] [address] ECG 12 lead (09/02/2017 10:09 AM) Ventricular rate 99 [facility] Atrial rate 99 [facility] MUSE QRSD interval 64 [facility] QT interval 314 [facility] MUSE QTC interval 402 [facility] MUSE QRS axis 1 71 [facility] MUSE T wave axis -82 [facility] MUSE EKG impression Sinus tachycardia-Poor R wave progression-ST [facility] MUSE & T wave abnormality, consider inferior ischemia-Abnormal ECG-No previous ECGs available- Performing Organization Address [facility] Phone Number [facility] MUSE [address] [place] [address] NM Brain Spect W I 123 [employer] [...] 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 [facility]-[id number] Performing Organization Address [facility] [place] Phone Number [facility] [address] [place] [address] URIAH SCREEN W IFA W REFLEX TO TITER (05/24/2017 11:28 AM) URIAH screen NEGATIVE NEGATIVE [facility] Comment: URIAH IFA is a first line screen for detecting the presence of up to approximately 150 autoantibodies in various autoimmune diseases. A negative URIAH IFA result suggests URIAH-associated autoimmune diseases are not present at this time. Visit Physician FAQs for interpretation of all antibodies in the [place], prevalence, and association with diseases at http://education.Netsket/ faq/TKK354 Specimen Blood Other Results Text Performing Organization Information: Site ID: [id number] Name: [facility] Address: [address] [place] [id number] Director: Dr. Clemente Nolan Performing Organization Address City/[facility]/Zipcode Phone Number [facility] [employer] [address] [address] Sedimentation rate (05/24/2017 11:28 AM) Sedimentation rate 1 < OR=20 mm/h [facility] [employer] [place] Specimen Blood Other Results Text Performing Organization Information: Site ID: [id number] Name: [facility] Address: [address] [place] [phone] Director: Milagros Cueva MD Performing Organization Address [facility] Phone Number [employer] [address] [address] Rheumatoid factor (05/24/2017 11:28 AM) Rheumatoid factor <14 <14 IU/mL [employer] ASTOR[place] Specimen Blood Other Results Text Performing Organization Information: Site ID: RGA Name: [facility] Address: [address] [place] [phone] Director: Milagros Cueva MD Performing Organization Address [facility] Phone Number [employer] [address] [address] C-reactive protein (05/24/2017 11:28 AM) CRP 1.3 <8.0 mg/L [employer] [place] Specimen Blood Other Results Text Performing Organization Information: Site ID: RGA Name: [facility] Address: [address] [place] [phone] Director: Milagros Cueva MD Performing Organization Address [facility] Phone Number [employer] [address] [address] Thyroid Panel With TSH (05/20/2017) Specimen Blood [...] heterogeneous. IMPRESSION: Mildly heterogeneous nonenlarged thyroid gland. [facility]-[id number] Procedure Note Interface, Radiology Results Incoming - 03/27/2017 1:10 PM [facility] EXAMINATION: US THYROID CLINICAL HISTORY: E03.9 Hypothyroidism [...] heterogeneous. IMPRESSION: Mildly heterogeneous nonenlarged thyroid gland. [facility]-[id number] Performing Organization Address City/State/Zipcode Phone Number [facility] [address] [place] [address] after 12/25/2016 Insurance Payer Benefit Plan / Group Subscriber ID Type Phone Address MEDICARE MEDICARE PART A AND B xxxxxxxxxx Medicare [place], [place] MEDICAID MEDICAID xxxxxxxxx Medicaid Home: [address] [place], [place] [phone] [address]
[2017-12-26] MEDS ORDERED: MORPHINE 4 MG/ML SYR ONE (05:32)
[2017-12-26] MEDS ORDERED: ONDANSETRON 4 MG/2 ML VIAL ONE (05:32)
[2017-12-26 05:51] LABS: Absolute Lymphocytes (CBC) 2.7 K/uL (0.7-4.9); Absolute Monocytes 0.5 K/uL (0.1-1.3); Basophils % 1.2 % (0-1.3); Eosinophils % 1.7 % (0-4.4); Lymphocytes % 31.9 % (15.3-44.8); MCH 33.1 pg (27.0-35.0); MCV 96.5 fL (80-100); MPV 8.3 fL (7.6-11.3); Monocytes % 6.2 % (3.3-12.3); RBC Red Blood Cell Count 4.77 M/uL (3.86-4.86)
[2017-12-26 05:58] LABS: Albumin 3.5 g/dL (3.4-5.0); Bilirubin Total 0.4 mg/dL (0.2-1.0); Potassium 3.7 mmol/L (3.5-5.1); Protein, Total 7.1 g/dL (6.4-8.2)
--- NOTE | 2017-12-26 06:30 | EDPHYS ---
Physician Documentation [facility] Name: Pratibha Howard Age: 42 yrs Sex: Female : 1975 Arrival Date: 12/26/2017 Time: 04:48 Bed 5 Private MD: ED Physician Mario Land HPI: 12/26 05:26 This 42 yrs old Female presents to ER via Ambulatory with complaints of ps1 Abdominal Pain. 05:26 RUQ pain. 2 days. Ate fatty food at [facility]. Pain persistent. Rated moderate, worse ps1 with food. No fever. Drinks occasionally. . 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 - Social history:: Smoking status: Patient uses tobacco products, smokes one pack cigarettes per day. - Ebola Screening: : Patient denies exposure to infectious person Patient denies travel to an Ebola-affected area in the 21 days before illness onset. ROS: 05:26 Constitutional: Negative for fever, chills, and weight loss, Eyes: Negative for injury, ps1 pain, redness, and discharge, Cardiovascular: Negative for chest pain, palpitations, and edema, Respiratory: Negative for shortness of breath, cough, wheezing, and pleuritic chest pain. 05:26 Back: Negative for injury and pain, MS/Extremity: Negative for injury and deformity, Skin: Negative for injury, rash, and discoloration, Neuro: Negative for headache, weakness, numbness, tingling, and seizure. 05:26 Abdomen/GI: Positive for abdominal pain. Exam: 05:26 Constitutional: This is a well developed, well nourished patient who is awake, alert, ps1 and in no acute distress. Head/Face: Normocephalic, atraumatic. Eyes: Pupils equal round and reactive to light, extra-ocular motions intact. Lids and lashes normal. Conjunctiva and sclera are non-icteric and not injected. Chest/axilla: Normal chest wall appearance and motion. Nontender with no deformity. No lesions are appreciated. Cardiovascular: Regular rate and rhythm. No gallops, murmurs, or rubs. Normal PMI, no JVD. No pulse deficits. Respiratory: Lungs have equal breath sounds bilaterally, clear to auscultation and percussion. No rales, rhonchi or wheezes noted. No increased work of breathing, no retractions or nasal flaring. 05:26 Skin: Warm, dry with normal turgor. Normal color with no rashes, no lesions, and no evidence of cellulitis. MS/ Extremity: Pulses equal, no cyanosis. Neurovascular intact. Full, normal range of motion. Neuro: Awake and alert, GCS 15, oriented to person, place, time, and situation. Cranial nerves II-XII grossly intact. Sensory grossly intact. 05:26 Abdomen/GI: Inspection: abdomen appears normal, Bowel sounds: normal, Palpation: moderate abdominal tenderness, in the right upper quadrant. Vital Signs: 05:03 BP 102 / 46; Pulse 99; Resp 18; Temp 97.0; Pulse Ox 100% on R/A; Weight 97.07 kg; aa1 Height 5 ft. 0 in. (152.40 cm); Pain 9/10; 06:41 BP 111 / 72; Pulse 87; Resp 16; Pulse Ox 100% on R/A; rr5 05:03 Body Mass Index 41.79 (97.07 kg, 152.40 cm) aa1 MDM: 04:59 Patient medically screened. ps1 06:30 Data reviewed: vital signs, nurses notes, lab test result(s), radiologic studies, and ps1 as a result, I will discharge patient. Counseling: I had a detailed discussion with the patient and/or guardian regarding: the historical points, exam findings, and any diagnostic results supporting the discharge/admit diagnosis, lab results, radiology results. 12/26 05:11 Order name: CBC with Diff; Complete Time: 05:57 ps1 12/26 05:11 Order name: Lipase; Complete Time: 05:59 ps1 12/26 05:11 Order name: CMP; Complete Time: 05:59 ps1 12/26 05:11 Order name: CT Abd/Pelvis - W/Contrast ps1 12/26 05:11 Order name: IV Saline Lock; Complete Time: 05:25 ps1 12/26 05:11 Order name: Labs collected and sent; Complete Time: 05:26 ps1 12/26 05:12 Order name: Urine Dipstick-Ancillary (obtain specimen); Complete Time: 05:25 ps1 Administered Medications: 05:29 Drug: morphine 4 mg Route: IVP; Site: left antecubital; ao 06:42 Follow up: Response: No adverse reaction rr5 05:29 Drug: Zofran 4 mg Route: IVP; Site: left antecubital; ao 06:43 Follow up: Response: No adverse reaction rr5 06:41 Drug: [place] 5 mg-325 mg 1 tabs Route: PO; rr5 06:42 Follow up: Response: Medication administered at discharge. rr5 Disposition: 12/26/17 06:29 Discharged to Home. Impression: Other and unspecified noninfective gastroenteritis and colitis. - Condition is Stable. - Discharge Instructions: Colitis. - Prescriptions for Bentyl 20 mg Oral Tablet - take 2 tablet by ORAL route every 6 hours As needed; 40 tablet. Zofran 4 mg Oral Tablet - take 1 tablet by ORAL route every 12 hours As needed; 20 tablet. Carafate 1 gram Oral Tablet - take 2 tablet by ORAL route every 12 hours take on an empty stomach, beginning on waking and last dose at bedtime; 100 tablet. - Medication Reconciliation Form, Thank You Letter, Antibiotic Education, Prescription Opioid Use form. - Follow up: Private Physician; When: As needed; Reason: Recheck today's complaints, Continuance of care, Re-evaluation by your physician. Follow up: Emergency Department; When: As needed; Reason: Worsening of condition. - Problem is new. - Symptoms have improved. Signatures: Dispatcher [employer] EDWA Santa Betancourt RN RN aa1 Isidra Donahue RN RN lp1 Rigo Dacosta RN RN Mario Robles MD MD ps1 Odin Barba RN RN rr5 Corrections: (The following items were deleted from the chart) 05:17 05:13 HEPATIC FUNCTION+C.LAB.BRZ ordered. EDWA EDMS 06:46 06:29 12/26/2017 06:29 Discharged to Home. Impression: Other and unspecified rr5 noninfective gastroenteritis and colitis. Condition is Stable. Forms are Medication Reconciliation Form, Thank You Letter, Antibiotic Education, Prescription Opioid Use. Follow up: Private Physician; When: As needed; Reason: Recheck today's complaints, Continuance of care, Re-evaluation by your physician. Follow up: Emergency Department; When: As needed; Reason: Worsening of condition. Problem is new. Symptoms have improved. ps1
--- NOTE | 2017-12-26 06:30 | ER ---
Nurse's Notes [facility] Name: Pratibha Howard Age: 42 yrs Sex: Female : 1975 Arrival Date: 12/26/2017 Time: 04:48 Bed 5 Private MD: Diagnosis: Other and unspecified noninfective gastroenteritis and colitis Presentation: 12/26 05:00 Presenting complaint: Patient states: epigastric pain that radiates around RUQ to her aa1 back since yesterday. Reports similar episodes in the past that resolved on their own. Transition of care: patient was not received from another setting of care. Onset of symptoms was December 25, 2017. Risk Assessment: Do you want to hurt yourself or someone else? Patient reports no desire to harm self or others. Initial Sepsis Screen: Does the patient meet any 2 criteria? HR > 90 bpm. No. Patient's initial sepsis screen is negative. Does the patient have a suspected source of infection? Yes: Acute abdominal pain. Care prior to arrival: None. 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 - Social history:: Smoking status: Patient uses tobacco products, smokes one pack cigarettes per day. - Ebola Screening: : Patient denies exposure to infectious person Patient denies travel to an Ebola-affected area in the 21 days before illness onset. Screenin:06 Abuse screen: Denies threats or abuse. Denies injuries from another. Nutritional aa1 screening: No deficits noted. Tuberculosis screening: No symptoms or risk factors identified. Fall Risk None identified. Assessment: 05:27 General: Appears in no apparent distress. Behavior is calm, cooperative, appropriate lp1 for age. Pain: Complains of pain in epigastric area Pain radiates to right upper quadrant Pain currently is 7 out of 10 on a pain scale. Neuro: Level of Consciousness is awake, alert, obeys commands. Cardiovascular: Patient's skin is warm and dry. Respiratory: Respiratory effort is even, unlabored. GI: Abdomen is non-distended, Bowel sounds present X 4 quads. Abdomen is tender to palpation in epigastric area and right upper quadrant Reports diarrhea, nausea. : No signs and/or symptoms were reported regarding the genitourinary system. EENT: No signs and/or symptoms were reported regarding the EENT system. Derm: Skin is pink, warm \T\ dry. Musculoskeletal: Circulation, motion, and sensation intact. 06:44 Reassessment: D/C and follow up given to patient and family member. rr5 Vital Signs: 05:03 BP 102 / 46; Pulse 99; Resp 18; Temp 97.0; Pulse Ox 100% on R/A; Weight 97.07 kg; aa1 Height 5 ft. 0 in. (152.40 cm); Pain 9/10; 06:41 BP 111 / 72; Pulse 87; Resp 16; Pulse Ox 100% on R/A; rr5 05:03 Body Mass Index 41.79 (97.07 kg, 152.40 cm) aa1 ED Course: 04:48 Patient arrived in ED. ds1 04:59 Mario Land MD is Attending Physician. ps1 05:01 Triage completed. aa1 05:03 Arm band placed on right wrist. aa1 05:06 Patient has correct armband on for positive identification. Bed in low position. Call aa1 light in reach. Pulse ox on. NIBP on. 05:22 Inserted saline lock: 20 gauge in left antecubital area, using aseptic technique. Blood ao collected. 06:10 CT Abd/Pelvis - W/Contrast In Process Unspecified. EDMS 06:15 CT completed. Patient tolerated procedure well. Patient moved to CT via wheelchair. Patient moved back from CT. 06:38 No provider procedures requiring assistance completed. IV discontinued. rr5 Administered Medications: 05:29 Drug: morphine 4 mg Route: IVP; Site: left antecubital; ao 06:42 Follow up: Response: No adverse reaction rr5 05:29 Drug: Zofran 4 mg Route: IVP; Site: left antecubital; ao 06:43 Follow up: Response: No adverse reaction rr5 06:41 Drug: [place] 5 mg-325 mg 1 tabs Route: PO; rr5 06:42 Follow up: Response: Medication administered at discharge. rr5 Outcome: 06:29 Discharge ordered by . ps1 06:39 Discharged to home ambulatory. rr5 06:39 Condition: stable 06:39 Discharge instructions given to patient, family, Instructed on discharge instructions, follow up and referral plans. medication usage, Demonstrated understanding of instructions, follow-up care, medications, Prescriptions given X 3. 06:46 Patient left the ED. rr5 Signatures: Dispatcher [employer] EDMS Santa Betancourt RN RN aa1 Lew Adler Demi ds1 Isidra Donahue RN RN lp1 Rigo Dacosta RN RN Mario Robles MD MD ps1 Odin Barba RN RN rr5 Corrections: (The following items were deleted from the chart) 06:45 06:39 Discharge instructions given to patient, Instructed on discharge instructions, rr5 follow up and referral plans. medication usage, Demonstrated understanding of instructions, follow-up care, medications, rr5
[2017-12-26] MEDS ORDERED: HYDROCODONE/APAP 5/325 MG TAB ONE (06:43)
[2017-12-26 06:51] VITALS: TEMP 97; O2SAT 100
[2017-12-26 06:52] VITALS: BP 111/72
--- NOTE | 2017-12-26 08:07 | RAD REPORT ---
EXAM DESCRIPTION: CTAbdomen Pelvis W Contrast - 12/26/2017 7:09 am CLINICAL HISTORY: Abdominal pain. RUQ. POCUS neg for GB. COMPARISON: No comparisons TECHNIQUE: Biphasic CT imaging of the abdomen and pelvis was performed with 100 ml non-ionic IV cont rast. All CT scans are performed using dose optimization technique as appropriate and may include automated exposure control or mA/KV adjustment according to patient size. FINDINGS: The lung bases are clear. The liver, spleen, pancreas, adrenal glands and kidneys are within normal limits. No bowel obstruction, free air, free fluid or abscess. Questionable thickening of the terminal ileum and ascending colon. The appendix is normal. No evidence of significant lymphadenopathy. No suspicious bony findings. IMPRESSION: Questionable thickening of the terminal ileum and ascending colon may indicate inflammat ion or infection. Otherwise, no acute abnormality seen.
== END 2017-12-26 06:46 | disposition home or self-care (01) ==
LOC: ER 04:46
DX: K52.89 Other specified noninfective gastroenteritis and colitis (principal); F17.210 Nicotine dependence, cigarettes, uncomplicated; E03.9 Hypothyroidism, unspecified; F31.9 Bipolar disorder, unspecified; F41.9 Anxiety disorder, unspecified; Z88.0 Allergy status to penicillin; Z88.5 Allergy status to narcotic agent; Z88.6 Allergy status to analgesic agent
CPT/HCPCS: 36415; 74177; 80053; 83690; 85025; 96374; 96375; 99284; J2405; Q9967

== ENCOUNTER 2018-02-26 17:39 | Emergency (ER) | payer OTHER ==
--- OUTSIDE RECORDS SUMMARY | 2018-02-26 17:42 | XMS REPORT | Clinical Summary ---
:1975 Author Organization [facility] Address [address] [place] [address] Care Team Providers Name Role Phone Darwin Mahoney MD Primary Care Provider Allergies Active Allergy Reactions Severity Noted Date Comments Codeine 09/22/2015 Penicillins 09/22/2015 Hydrocodone-Acetaminophen 09/22/2015 Medications Medication Sig Dispensed Refills Start Date End Date Status SILENOR 3 mg tablet Take 1 tablet 0 05/14/2017 Active by mouth nightly. ALPRAZolam (XANAX) 1 Take 1 mg by 0 Active MG tablet mouth 3 (three) times a day. PROVENTIL HFA 90 Inhale 1 puff 18 g 2 07/22/2017 Active mcg/actuation every 6 (six) inhalerIndications: hours as Chronic obstructive needed for pulmonary disease, shortness of unspecified COPD type breath. (HCC) cariprazine (VRAYLAR) Take 4.5 mg by 0 Active 4.5 mg capsule mouth daily. furosemide (LASIX) 20 Take 1 tablet 60 tablet 1 08/21/2017 08/22/19 Active mg tabletIndications: (20 mg total) 19 Leg swelling by mouth 2 (two) times a day as needed (fluid retention). albuterol (VENTOLIN Inhale 2 puffs 1 Inhaler 5 11/21/2017 11/22/19 Active HFA) 90 mcg/actuation every 6 (six) 19 inhalerIndications: hours as Mild intermittent needed for asthma without wheezing. complication AmANTadine HCl 100 mg Titrate up to 180 tablet 5 11/22/2017 Active tablet 2 pills 3x/day ondansetron (ZOFRAN) Take 4 mg by 0 12/26/2017 Active 4 MG tablet mouth every 12 (twelve) hours as needed. dicyclomine (BENTYL) Take 40 mg by 0 12/26/2017 Active 20 mg tablet mouth every 6 (six) hours as needed. omeprazole (PriLOSEC) Take 1 capsule 90 capsule 1 12/31/2017 Active 40 MG (40 mg total) capsuleIndications: by mouth Gastroesophageal daily. reflux disease without esophagitis INVEGA SUSTENNA 156 INJECT 1 0 07/15/2015 03/15/19 Discontinued mg/mL syringe INJECTION IM 18 ONCE ON 07/18/2015 ibuprofen Take 200 mg by 0 01/01/20 Discontinued (ADVIL,MOTRIN) 200 MG mouth every 6 18 tablet (six) hours as needed for mild pain. sertraline (ZOLOFT) Take 50 mg by 0 05/23/19 Discontinued 50 MG tablet mouth daily. 18 diazePAM (VALIUM) 5 Take 5 mg by 0 05/23/19 Discontinued MG tablet mouth every 8 18 (eight) hours as needed for anxiety. QUEtiapine (SEROquel) Take 200 mg by 0 03/15/19 Discontinued 200 MG tablet mouth nightly. 18 3 tabs at night benztropine Take 1 mg by 0 05/23/19 Discontinued (COGENTIN) 1 MG mouth daily. 18 tablet divalproex (DEPAKOTE) Take 500 mg by 0 11/23/19 Discontinued 500 MG 24 hr tablet mouth. 18 DIPHENHYDRAMINE HCL Take by mouth. 0 05/23/19 Discontinued (BENADRYL ORAL) 2 tabs at 18 night omeprazole (PriLOSEC) Take 40 mg by 0 01/01/20 Discontinued 40 MG capsule mouth as 18 needed. levothyroxine Take 1 tablet 30 tablet 2 06/29/2016 03/15/19 Discontinued (SYNTHROID, LEVOXYL) (25 mcg total) 18 25 mcg by mouth every tabletIndications: morning for 30 Hypothyroidism, days. unspecified levothyroxine Take One half 45 tablet 0 01/28/2017 03/15/19 Discontinued (SYNTHROID, LEVOXYL) ( 1/2) tbl 18 75 mcg tablet daily am ARIPiprazole Take 15 mg by 0 05/23/19 Discontinued (ABILIFY) 15 MG mouth daily. 18 tablet levothyroxine Take 1 tablet 30 tablet 2 03/15/2017 08/22/19 Discontinued (SYNTHROID, LEVOXYL) (25 mcg total) 18 25 mcg by mouth every tabletIndications: morning for 30 Hypothyroidism, days. unspecified type sertraline (ZOLOFT) Take 25 mg by 0 08/22/19 Discontinued 25 MG tablet mouth daily. 18 propranolol (INDERAL) Take 20 mg by 0 10/04/19 Discontinued 20 MG tablet mouth 2 (two) 18 times a day. azithromycin Take 2 tablets 6 tablet 0 05/22/2017 05/28/19 (ZITHROMAX) 250 MG the first day, 18 tabletIndications: then 1 tablet Chronic obstructive daily for 4 pulmonary disease, days. unspecified COPD type (HCC) albuterol (PROAIR Inhale 1 puff 18 g 1 05/22/2017 07/23/19 Discontinued HFA,PROVENTIL every 6 (six) 18 HFA,VENTOLIN HFA) 90 hours as mcg/actuation needed for inhalerIndications: shortness of Chronic obstructive breath. pulmonary disease, unspecified COPD type (HCC) predniSONE Take 1 tablet 5 tablet 0 05/22/2017 05/28/19 (DELTASONE) 20 mg (20 mg total) 18 tabletIndications: by mouth daily Chronic obstructive for 5 days. pulmonary disease, unspecified COPD type (HCC) levothyroxine Take 1 tablet 30 tablet 2 08/21/2017 11/22/19 Discontinued (SYNTHROID, LEVOXYL) (25 mcg total) 18 25 mcg by mouth every tabletIndications: morning for 30 Hypothyroidism, days. unspecified type albuterol (VENTOLIN Inhale 2 puffs 1 Inhaler 5 09/17/2017 11/22/19 Discontinued HFA) 90 mcg/actuation every 6 (six) 18 inhaler hours as needed for wheezing. levothyroxine Take 1 tablet 30 tablet 11 11/21/2017 12/22/19 (SYNTHROID, LEVOXYL) (25 mcg total) 18 25 mcg by mouth every tabletIndications: morning for 30 Hypothyroidism, days. unspecified type diclofenac (VOLTAREN) Take 1 tablet 60 tablet 1 11/21/2017 12/22/19 75 MG EC (75 mg total) 18 tabletIndications: by mouth 2 Midline low back pain (two) times a without sciatica, day for 30 unspecified days. chronicity lidocaine (LIDODERM) Place 1 patch 30 patch 0 11/21/2017 12/22/19 5 %Indications: on the skin 18 Midline low back pain daily for 30 without sciatica, days. Remove & unspecified Discard patch chronicity within 12 hours or as directed by sucralfate (CARAFATE) Take 2 g by 0 12/26/2017 01/01/20 Discontinued 1 gram tablet mouth every 12 18 (twelve) hours. acetaminophen-codeine Take 1 tablet 60 tablet 0 12/31/2017 01/11/20 (TYLENOL WITH CODEINE by mouth every 18 #4) 300-60 mg per 6 (six) hours tabletIndications: as needed for Abdominal pain, moderate pain unspecified abdominal for up to 10 location, Midline low days. back pain without sciatica, unspecified chronicity sucralfate (CARAFATE) Take 10 mL (1 1200 mL 0 12/31/2017 01/31/20 100 mg/mL g total) by 18 suspensionIndications mouth 4 (four) : Abdominal pain, times a day unspecified abdominal for 30 days. location azithromycin Take 2 tablets 6 tablet 0 02/18/2018 02/23/20 (ZITHROMAX) 250 MG the first day, 18 tablet then 1 tablet daily for 4 days. 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 Bipolar 1 disorder 09/22/2015 Overview: FU w psych Tobacco use 09/22/2015 Resolved Problems Problem Noted Date Resolved Date Chest pain 10/03/2017 11/21/2017 Encounters Date Type Specialty Care Team Description 02/26/2018 Nurse Triage Access Trisha Rodriguez RN 02/18/2018 Office Visit Internal Medicine Sudheer Menjivar Pharyngitis, unspecified etiology (Primary Dx); MD Stephen Fever, unspecified fever cause 02/18/2018 Telephone Internal Medicine Darwin Mahoney MD 01/10/2018 Refill Family Medicine Maru, Abdominal pain, unspecified abdominal location; MD Darwin Midline low back pain without sciatica, unspecified chronicity 12/31/2017 Office Visit Family Medicine Maru, Abdominal pain, unspecified abdominal location (Primary Dx); MD Darwin Gastroesophageal reflux disease without esophagitis; Midline low back pain without sciatica, unspecified chronicity; Tremor; Bipolar 1 disorder (HCC); Tobacco use 11/22/2017 Office Visit Neurology Todd Massey Neuroleptic-induced Parkinsonism (Primary Dx); MD Gaurang Tremor 11/21/2017 Office Visit Family Medicine Maru, Hypothyroidism, unspecified type (Primary Dx); MD Darwin Mild intermittent asthma without complication; Midline low back pain without sciatica, unspecified chronicity; Bipolar 1 disorder; Tremor; Palpitations; Leg swelling; Tobacco use; Need for vaccination 11/11/2017 Office Visit Cardiology Gunter, Crawford Min, Edema, unspecified type ( Primary Dx); Palpitation 11/06/2017 Telephone Internal Medicine Bindu Aguiar MD 11/05/2017 Lab Lab Bindu Aguiar Bilateral leg edema MD Ramon 11/05/2017 Office Visit Internal Medicine Bindu Aguiar Bilateral leg edema (Primary Dx); MD Ramon Hypothyroidism, unspecified type 11/05/2017 Telephone Family Medicine Cesar Hall LVN 11/01/2017 Lab Lab Bindu Aguiar MD 11/01/2017 Telephone Family [facility] Darwin Mahoney MD 11/01/2017 Telephone Family Medicine Concha Garg MA 11/01/2017 Orders Only Internal Medicine Bindu Aguiar Edema, unspecified type MD Ramon (Primary Dx) 11/01/2017 Telephone Family Medicine Concha Garg MA 10/08/2017 Telephone Cardiology Dona Cox (holter) WALTER Francis 10/07/2017 Orders Only Procedural Nazario, Basco Palpitations Cardiology 10/03/2017 Office Visit Cardiology Jani, Crawford Min, Palpitations (Primary MD Dx) 09/30/2017 Hospital Encounter Procedural Gunter, Crawford Min, Essential hypertension; Cardiology Pain in both lower extremities; Edema, unspecified type 09/27/2017 Hospital Encounter Procedural Gunter, Crawford Min, Essential hypertension; Cardiology Pain in both lower [...] Screening for rheumatic disorder 07/22/2017 Refill Family [facility] Mahoney Chronic obstructive MD Darwin pulmonary disease, unspecified COPD type 06/10/2017 Telephone Family Medicine Darwin Mahoney MD 06/06/2017 Hospital Encounter Radiology Fadi Elizabeth essential Lyndon F., MD 06/06/2017 Hospital Encounter Fadi Lorenzo essential Lyndon F., MD 05/28/2017 [...] 1 disorder; Tobacco use 03/08/2017 Lab Lab Miriam Mahoney MD after 02/25/2017 Immunizations Name Dates Previously Given Next Due [...] Assigned at Date Recorded Not on file Job Start Date Occupation Industry Not on file Not on file Not on file Travel History Travel Start Travel End No recent travel history available. Last Filed Vital Signs Vital Sign Reading Time Taken Blood Pressure 117/82 02/18/2018 4:00 PM DELIVER DRIVER Pulse 107 02/18/2018 4:00 PM DELIVER DRIVER Temperature 36.8 C (98.3 F) 02/18/2018 4:00 PM DELIVER DRIVER Respiratory Rate 16 02/18/2018 4:00 PM DELIVER DRIVER Oxygen Saturation 97% 02/18/2018 4:00 PM DELIVER DRIVER Inhaled Oxygen Concentration - - Weight 97.5 kg (215 lb) 02/18/2018 4:00 PM DELIVER DRIVER Height 165.1 cm (5' 5") 02/18/2018 4:00 PM DELIVER DRIVER Body Mass Index 35.78 02/18/2018 4:00 PM DELIVER DRIVER Plan of Treatment Date Type Specialty Care Team Description 05/21/2018 Office Visit Family Medicine Darwin Mahoney MD [address] [facility] [address] [place] [address] Health Maintenance Due Date Last Done Comments BREAST CANCER SCREENING 1975 CERVICAL CANCER SCREENING 08/21/2018 Postponed from 1997 (Patient Refused) INFLUENZA VACCINE Completed 11/21/2017 Procedures Procedure Name Priority Date/Time Associated Diagnosis Comments STREP SCREEN CULTURE Routine 02/18/2018 4:24 Pharyngitis, Results for this PM DELIVER DRIVER unspecified etiology procedure are in the results section. POCT RAPID STREP A Routine 02/18/2018 4:12 Fever, unspecified Results for this PM DELIVER DRIVER fever cause procedure are in the results section. POCT INFLUENZA A/B Routine 02/18/2018 4:12 Fever, unspecified Results for this PM DELIVER DRIVER fever cause procedure are in the results section. T3, FREE Routine 11/05/2017 2:48 Bilateral leg [...] DOPPLER Pain in both lower the results (20930) extremities section. Edema, unspecified type ECG 12-LEAD [...] section. THYROID PANEL WITH TSH Routine 05/20/2017 US THYROID Routine 03/27/2017 11:40 Hypothyroidism, Results for this AM DELIVER DRIVER unspecified type procedure are in the results section. THYROID STIMULATING Routine 03/08/2017 11:59 Hypothyroidism Results for this HORMONE AM DELIVER DRIVER procedure are in the results section. THYROID STIMULATING Routine 03/08/2017 11:59 Hypothyroidism Results for this HORMONE AM DELIVER DRIVER procedure are in the results section. T4, FREE Routine 03/08/2017 11:59 Hypothyroidism Results for this AM DELIVER DRIVER procedure are in the results section. after 02/25/2017 Results Strep screen culture (02/18/2018 4:24 PM DELIVER DRIVER) Streptococcus, group A SEE NOTE [facility] culture Comment: STREPTOCOCCUS, GROUP A CULTURE MICRO NUMBER:[id number] TEST STATUS: FINAL SPECIMEN SOURCE: NOT GIVEN SPECIMEN QUALITY:ADEQUATE RESULT:No group A Streptococcus isolated Specimen Throat Resulting Agency Comment Performing Organization Information: Site ID: [id number] Name: [facility] Address: [address] [place] [phone] Director: Milagros Cueva Performing Organization Address [facility] Centercode [place] [address] POC Influenza A/B (02/18/2018 4:12 PM DELIVER DRIVER) Rapid Influenza A Ag negative Rapid Influenza B Ag negative Specimen Swab POC rapid strep A (02/18/2018 4:12 PM DELIVER DRIVER) Rapid strep A antigen result Negative Negative Specimen Swab T3, free (11/05/2017 2:48 PM CDT) T3, free 2.4 2.3 - 4.2 pg/mL [facility] Specimen Blood Resulting Agency Comment Performing Organization Information: Site ID: [id number] Name: [facility] Address: [address] [place] [phone] Director: Milagros Cueva Performing Organization Address [facility] Centercode Phone Number [facility] [place] [phone] Thyroid stimulating hormone (11/05/2017 2:48 PM CDT)Only the most recent of4 resultswithin the time period is included. TSH 2.81 mIU/L [facility] Comment: Reference Range > or=20 Years0.40-4.50 Ranges First trimester0.26-2.66 Second trimester 0.55-2.73 Third trimester0.43-2.91 Specimen Blood Resulting Agency Comment Performing Organization Information: Site ID: [id number] Name: [facility] Address: [address] [place] [phone] Director: Milagros Cueva Performing Organization Address City/State/[facility] Centercode [place] [address] T4, free (11/05/2017 2:48 PM CDT)Only the most recent of3 resultswithin the time period is included. T4, free 1.0 0.8 - 1.8 ng/dL [facility] Specimen Blood Resulting Agency Comment Performing Organization Information: Site ID: [id number] Name: [facility] Address: [address] [place] [phone] Director: Milagros Cueva Performing Organization Address [facility] Centercomn [place] [address] Basic metabolic panel (11/01/2017 11:08 AM CDT) Glucose 84 65 - 99 mg/dL [facility] Comment: [place] Fasting reference interval BUN, whole blood 11 7 - 25 mg/dL [facility] Creatinine 1.00 0.50 - 1.10 mg/dL [facility] EGFR Non-Afr. Jordanian 70 > OR=60 [facility] mL/min/1.73m2 [place] EGFR 81 > OR=60 [facility] mL/min/1.73m2 [facility] BUN/creatinine ratio NOT APPLICABLE 6 - 22 (calc) [facility] [place] Sodium 140 135 - 146 mmol/L [facility] [place] Potassium 4.5 3.5 - 5.3 mmol/L [facility] [place] Chloride 102 98 - 110 mmol/L [facility] [place] CO2 30 20 - 32 mmol/L [facility] [place] Calcium 9.1 8.6 - 10.2 mg/dL [facility] Specimen Blood Resulting Agency Comment Performing Organization Information: Site ID: [id number] Name: [facility] Address: [address] [place] [address] Director: Milagros Cueva Performing Organization Address City/[facility]/Zipcode Phone Number [facility] [place] [address] [place], [place] [phone] CV Holter monitor 48 hour (10/03/2017 10:00 AM CDT) Hookup Date [id number] [facility] MUSE Hookup Time [id number] [facility] M[facility] Acquisition Duration [id number] [facility] MUSE # of Ventricular Beats in Runs 0 H MUSE # OF LONGEST VENTRICULAR BEATS [facility] MUSE # of Supraventricular Beats in 0 H MUSE Runs # of Longest Supraventricular [facility] MUSE Beats Max Heart Rate 159 [facility] Min Heart Rate 52 [facility] MUSE Longest RR 1.390 [facility] M[facility] Diagnosis -Basic rhythm Sinus rhythm [facility] M[facility] with frequent Sinus tachycardia--Rare Premature atrial complexes Premature ventricular complexes-several episodes of palpitation : all sinus tachycardia - Narrative Performed At Performing Organization Address [facility] Centercomn Phone Number [facility] [address] [place] [address] Pv physiologic arterial lower extremity complete w rossy (09/30/2017 2:20 PM CDT) Narrative Performed At [facility] Vascular Diagnostic Laboratory Physiologic Arterial Leg Report [address] [address] Pat.Name:PRATIBHA HOWARD Pat.ID:[id number] .Date: 09/30/2017 Refer.MD:YVETTE GUNTER MD Exam Time: 1:40:00 PMStudy Type:Physiologic Leg DOBAge:1975,42Y Sex: FEMALE Sonogrphr: Collazo Vi, RVTPat. Stat.:Outpatient TapeVol: HV, CPT - 4: 52813 Echo Event ID:[id number] Order ID:[id number] Reason for Study:Bilateral leg pain. Procedures:Ankle/brachial pressures, [...] PRESSURE(mmHg): RIGHT LEFT Brachial 94 91 Low [id number] [address] [place] [address] Ankle DP [address] [id number] Great Toe 8481 ANKLE/BRACHIAL INDEX: RIGHTLEFT Dorsalis [...] Vascular Diagnostic Laboratory Physiologic Arterial Leg Report [address] [place] [address] Pat.Name: PRATIBHA HOWARD Pat.ID: [id number] .Date: 09/30/2017 Refer.MD: YVETTE GUNTER MD Exam Time: 1:40:00 PM Study Type:Physiologic Leg Age: 1 1975,42Y Sex: FEMALE Sonogrphr: Collazo Vi, RVT Pat. Stat.:Outpatient Tape Vol: HV, CPT - 4: 09656 Echo Event ID:[id number] Order ID: [id number] Reason for Study:Bilateral leg pain. Procedures:Ankle/brachial pressures, [...] RPVI Performing Organization Address City/State/Zipcode Phone Number [facility] [address] [place] [phone] Pv duplex venous lower extremity (09/27/2017 3:00 PM CDT) Narrative Performed At [facility] Vascular Ultrasound Laboratory Lower Extremity Venous Report [address] [place] [address] Pat.Name:PRATIBHA HOWARD.ID:[id number] .Date: 09/27/2017 Refer.MD:YVETTE GUNTER MD Exam Time: 1:00:00 PMStudy Type:LE Venous DOBAge:1975,42Y Sex: FEMALE Sonogrphr: SHELLEY Escobedoat. Stat.:Outpatient Room:[facility] 16TapeVol: [place], CPT - 4: 22142 Echo Event ID:[id number] Order ID:[id number] Reason for Study:Shortness of breath. History of [...] Vascular Ultrasound Laboratory Lower Extremity Venous Report [address] [place] [address] Pat.Name: PRATIBHA HOWARD.ID: [id number] .Date: 09/27/2017 Refer.MD: YVETTE GUNTER MD Exam Time: 1:00:00 PM Study Type:LE Venous Age: 1 1975,42Y Sex: FEMALE Sonogrphr: Jenny Liang RVT Pat. Stat.:Outpatient Room: [facility] 16 Tape Vol: RF, CPT - 4: 00315 Echo Event ID:[id number] Order ID: [id number] Reason for Study:Shortness of breath. History of [...] PM Gaurang Ferris MD Performing Organization Address [facility]/State/Zipcode Phone Number [facility] [address] [place] [address] Echocardiogram complete w contrast and 3D if needed (09/27/2017 1:57 PM CDT) Narrative Performed At [facility] Echocardiography Report [address] [place] [address] Pat.Name:PRATIBHA HOWARD Pat.ID:[id number] .Date: 09/27/2017 Refer.MD:YVETTE GUNTER MD Exam Time: 1:36:00 PMStudy Type:Routine Echo Height:60inWeight: 200lb BSA: 1.87 m2 DOBAge:1975,42Y Sex: FEMALEBP:98/57 HR:91 bpmSonogrphr: Gale Da Silva RDCS Pat. Stat.:OutpatientStudy Status:Final Echo Event ID:[id number] Order ID:[id number] Reason for Study:RV FUNCTION Procedures:2D Echo, Colorflow [...] - 09/28/2017 1:27 PM CDT Echocardiography Report [address] [address] Pat.Name: PRATIBHA HOWARD.ID: [id number] .Date: 09/27/2017 Refer.MD: YVETTE GUNTER MD Exam Time: 1:36:00 PM Study Type:Routine Echo Height: 60in Weight: 200lb BSA: 1.87 m2 Age: 1 1975,42Y Sex: FEMALE BP: 98/57 HR: 91 bpm Sonogrphr: Gale Da Silva RDCS Pat. Stat.:Outpatient Study Status:Final Echo Event ID:[id number] Order ID: [id number] Reason for Study:RV FUNCTION Procedures:2D Echo, Colorflow [...] PM Clemente Cho MD Performing Organization Address [facility] Phone Number [facility] [address] [place] [address] ECG 12 lead (09/02/2017 10:09 AM CDT) Ventricular rate 99 [facility] Atrial rate 99 [facility] QRSD interval 64 [facility] QT interval 314 [facility] QTC interval 402 [facility] QRS axis 1 71 [facility] T wave axis -82 [facility] EKG impression Sinus tachycardia-Poor R wave progression-ST [facility] & T wave abnormality, consider inferior ischemia-Abnormal ECG-No previous ECGs available- Performing Organization Address [facility] Phone Number [facility] [address] [place] [address] NM Brain Spect W I 123 Datscan (06/06/2017 2:36 PM CDT) Narrative Performed At PROCEDURE: NM BRAIN SPECT W I 123 DATSCAN [facility] INDICATION: G25.0 Essential tremor, G25 TECHNIQUE: The patient was pretreated with potassium iodide drops for thyroid protection and then injected with 4 mCi of I-123 DaTscan IV. Brain SPECT imaging was then performed. FINDINGS: Account for slight anatomic asymmetry there is preserved tracer uptake in the caudate and putamen bilaterally. IMPRESSION: Normal DaTscan study. No scintigraphic 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 [facility]-[id number] Procedure Note Interface, Radiology Results Incoming - [...] 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 [facility]-[id number] Performing Organization Address [facility] Centercomn Phone Number [facility] [address] [place] [address] URIAH SCREEN W IFA W REFLEX TO TITER (05/24/2017 11:28 AM CDT) URIAH screen NEGATIVE NEGATIVE [facility] Comment: URIAH IFA is a first line screen for detecting the presence of up to approximately 150 autoantibodies in various autoimmune diseases. A negative URIAH IFA result suggests URIAH-associated autoimmune diseases are not present at this time. Visit Physician FAQs for interpretation of all antibodies in the [place], prevalence, and association with diseases at http://education.Sferra/ faq/RZQ889 Specimen Blood Resulting Agency Comment Performing Organization Information: Site ID: [id number] [facility]: [facility] Address: [address] [place] [phone] Director: Dr. Clemente Nolan Performing Organization Address [facility] Phone Number [place] [phone] [place] [address] Sedimentation rate (05/24/2017 11:28 AM CDT) Sedimentation rate 1 < OR=20 mm/h [facility] Specimen Blood Resulting Agency Comment Performing Organization Information: Site ID: [id number] Name: [facility] Address: [address] [place] [phone] Director: Milagros Cueva MD Performing Organization Address [facility] Phone Number [facility] [address] [address] Rheumatoid factor (05/24/2017 11:28 AM CDT) Rheumatoid factor <14 <14 IU/mL [facility] [employer] [place] Specimen Blood Resulting Agency Comment Performing Organization Information: Site ID: [id number] Name: [facility] Address: [address] [place] [phone] Director: Milagros Cueva MD Performing Organization Address City/[facility] Centercode Phone Number [facility] [address] [address] C-reactive protein (05/24/2017 11:28 AM CDT) CRP 1.3 <8.0 mg/L [facility] Specimen Blood Resulting Agency Comment Performing Organization Information: Site ID: [id number] [facility]: [facility] Address: [address] [place] [id number] Director: Milagros Cueva MD Performing Organization Address [facility] Phone Number CITLALLI HULL [address] [address] Thyroid Panel With TSH (05/20/2017) Specimen Blood Narrative Performed At US Thyroid (03/27/2017 11:40 AM DELIVER DRIVER) Narrative Performed At EXAMINATION:US THYROID RADIANT CLINICAL [...] heterogeneous. IMPRESSION: Mildly heterogeneous nonenlarged thyroid gland. [id number] Procedure Note Hm Interface, Radiology Results Incoming - 03/27/2017 1:10 PM DELIVER DRIVER EXAMINATION: US THYROID CLINICAL HISTORY: E03.9 Hypothyroidism [...] heterogeneous. IMPRESSION: Mildly heterogeneous nonenlarged thyroid gland. [id number] Performing Organization Address City/State/Zipcode Phone Number [facility] [address] [place] [address] after 02/25/2017 Insurance Payer Benefit Plan / Group Subscriber ID Type Phone Address MEDICARE MEDICARE PART A AND B xxxxxxxxxxx Medicare [place] MEDICA[place] MEDICAID xxxxxxxxx Medicaid ([place]) [place] [address] Advance Directives Patient has advance care planning documents on file. For more information, please contact:Hemanth [id number] [place] [address]
[2018-02-26] MEDS ORDERED: IBUPROFEN 400 MG TAB ONE (20:10)
[2018-02-26] MEDS ORDERED: IBUPROFEN 200 MG TAB PO ONE (20:11)
--- NOTE | 2018-02-26 20:34 | RAD REPORT ---
EXAM DESCRIPTION: RAD - Wrist Right 3 View - 02/26/2018 8:21 pm CLINICAL HISTORY: PAIN Pain COMPARISON: No comparisons FINDINGS: No acute fracture or dislocation of the right wrist is identified. No foreign body or oth er soft tissue abnormality. IMPRESSION: Negative examination.
--- NOTE | 2018-02-26 20:35 | RAD REPORT ---
EXAM DESCRIPTION: RAD - Wrist Left 3 View - 02/26/2018 8:21 pm CLINICAL HISTORY: PAIN Pain COMPARISON: No comparisons FINDINGS: No acute fracture or dislocation of the left wrist is identified. No foreign body or othe r soft tissue abnormality. IMPRESSION: Negative examination.
--- NOTE | 2018-02-26 20:43 | EDPHYS ---
Physician Documentation [facility] Name: Pratibha Howard Age: 42 yrs Sex: Female : 1975 Arrival Date: 02/26/2018 Time: 17:42 Bed 11 Private MD: ED Physician Ildefonso Wilks HPI: 02/26 19:52 This 42 yrs old Female presents to ER via Ambulatory with complaints of Fall brant Injury, Wrist Pain. 19:52 Details of fall: The patient fell from a height, tailgate. Onset: The symptoms/episode brant began/occurred just prior to arrival. Associated injuries: The patient sustained right arm and left arm and right wrist and left wrist, contusion, decreased range of motion. Severity of symptoms: At their worst the symptoms were mild, in the emergency department the symptoms are unchanged. The patient has not experienced similar symptoms in the past. 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 - Social history:: Smoking status: Patient uses tobacco products, Patient/guardian denies using alcohol. - Ebola Screening: : Patient negative for fever greater than or equal to 101.5 degrees Fahrenheit, and additional compatible Ebola Virus Disease symptoms Patient denies exposure to infectious person Patient denies travel to an Ebola-affected area in the 21 days before illness onset. - Family history:: not pertinent. ROS: 19:52 Constitutional: Negative for fever, chills, and weight loss, Eyes: Negative for injury, brant pain, redness, and discharge, ENT: Negative for injury, pain, and discharge, Neck: Negative for injury, pain, and swelling, Cardiovascular: Negative for chest pain, palpitations, and edema, Respiratory: Negative for shortness of breath, cough, wheezing, and pleuritic chest pain, Abdomen/GI: Negative for abdominal pain, nausea, vomiting, diarrhea, and constipation, Back: Negative for injury and pain, : Negative for injury, bleeding, discharge, and swelling, Skin: Negative for injury, rash, and discoloration, Neuro: Negative for headache, weakness, numbness, tingling, and seizure, Psych: Negative for depression, anxiety, suicide ideation, homicidal ideation, and hallucinations, Allergy/Immunology: Negative for hives, rash, and allergies, Endocrine: Negative for neck swelling, polydipsia, polyuria, polyphagia, and marked weight changes, Hematologic/Lymphatic: Negative for swollen nodes, abnormal bleeding, and unusual bruising. 19:52 MS/extremity: Positive for decreased range of motion, pain, swelling, tenderness, of the dorsal aspect of right wrist, palmar aspect of right wrist and left hand. Exam: 19:52 Constitutional: This is a well developed, well nourished patient who is awake, alert, brant and in no acute distress. Head/Face: Normocephalic, atraumatic. Eyes: Pupils equal round and reactive to light, extra-ocular motions intact. Lids and lashes normal. Conjunctiva and sclera are non-icteric and not injected. Cornea within normal limits. Periorbital areas with no swelling, redness, or edema. ENT: Nares patent. No nasal discharge, no septal abnormalities noted. Tympanic membranes are normal and external auditory canals are clear. Oropharynx with no redness, swelling, or masses, exudates, or evidence of obstruction, uvula midline. Mucous membranes moist. Neck: Trachea midline, no thyromegaly or masses palpated, and no cervical lymphadenopathy. Supple, full range of motion without nuchal rigidity, or vertebral point tenderness. No Meningismus. Chest/axilla: Normal chest wall appearance and motion. Nontender with no deformity. No lesions are appreciated. Cardiovascular: Regular rate and rhythm with a normal S1 and S2. No gallops, murmurs, or rubs. Normal PMI, no JVD. No pulse deficits. Respiratory: Lungs have equal breath sounds bilaterally, clear to auscultation and percussion. No rales, rhonchi or wheezes noted. No increased work of breathing, no retractions or nasal flaring. Abdomen/GI: Soft, non-tender, with normal bowel sounds. No distension or tympany. No guarding or rebound. No evidence of tenderness throughout. Back: No spinal tenderness. No costovertebral tenderness. Full range of motion. Skin: Warm, dry with normal turgor. Normal color with no rashes, no lesions, and no evidence of cellulitis. Neuro: Awake and alert, GCS 15, oriented to person, place, time, and situation. Cranial nerves II-XII grossly intact. Motor strength 5/5 in all extremities. Sensory grossly intact. Cerebellar exam normal. Normal gait. Psych: Awake, alert, with orientation to person, place and time. Behavior, mood, and affect are within normal limits. 19:52 Musculoskeletal/extremity: Extremities: grossly normal except: noted in the dorsal aspect of right wrist, palmar aspect of right wrist and left hand: decreased ROM, pain, swelling, tenderness. Vital Signs: 17:49 BP 103 / 64; Pulse 96; Resp 18; Temp 98.1(O); Pulse Ox 98% on R/A; Weight 97.98 kg; hj Height 5 ft. 0 in. (152.40 cm); Pain 10/10; 17:49 Body Mass Index 42.19 (97.98 kg, 152.40 cm) MDM: 19:21 Patient medically screened. [facility] 19:52 Data reviewed: vital signs, nurses notes, lab test result(s), radiologic studies, plain brant films. 02/26 19:52 Order name: Wrist Left (3 View) XRAY: cock up; Complete Time: 20:41 [facility] 02/26 19:52 Order name: Wrist Right 3 View XRAY: cock up; Complete Time: 20:41 [facility] 02/26 19:52 Order name: Splint - Wrist; Complete Time: 21:06 [facility] 02/26 19:52 Order name: Splint - Wrist; Complete Time: 21:06 [facility] 02/26 19:52 Order name: Ice pack; Complete Time: 20:10 [facility] Administered Medications: 20:04 Not Given (Patient Refused): Motrin 600 mg PO once lp1 Disposition: 02/26/18 20:42 Discharged to Home. Impression: Fall due to bumping against object, Pain in left wrist, Pain in right wrist. - Condition is Stable. - Discharge Instructions: Joint Pain, Musculoskeletal Pain, Wrist Pain. - Prescriptions for Tylenol- Codeine #3 300-30 mg Oral Tablet - take 2 tablets by ORAL route every 6 hours As needed; 26 tablet. Motrin IB 200 mg Oral Tablet - take 2 tablet by ORAL route every 6 hours As needed as needed with food; 30 tablet. - Medication Reconciliation Form, Thank You Letter, Antibiotic Education, Prescription Opioid Use form. - Follow up: Private Physician; When: 2 - 3 days; Reason: Recheck today's complaints, Continuance of care, Re-evaluation by your physician. Follow up: Eleuterio Mcguire; When: 2 - 3 days; Reason: Recheck today's complaints, Re-evaluation by your physician. - Problem is new. - Symptoms have improved. Signatures: Dispatcher [employer] EDSD Ildefonso Wilks MD MD cha Pena, Laura RN RN lp1 Dain Lindsey RN RN hj Corrections: (The following items were deleted from the chart) 21:08 20:42 02/26/2018 20:42 Discharged to Home. Impression: Fall due to bumping against lp1 object; Pain in left wrist; Pain in right wrist. Condition is Stable. Discharge Instructions: Joint Pain, Musculoskeletal Pain, Wrist Pain. Prescriptions for Tylenol-Codeine #3 300-30 mg Oral Tablet - take 2 tablets by ORAL route every 6 hours As needed; 26 tablet, Motrin IB 200 mg Oral Tablet - take 2 tablet by ORAL route every 6 hours As needed as needed with food; 30 tablet. and Forms are Medication Reconciliation Form, Thank You Letter, Antibiotic Education, Prescription Opioid Use. Follow up: Private Physician; When: 2 - 3 days; Reason: Recheck today's complaints, Continuance of care, Re-evaluation by your physician. Follow up: Eleuterio Mcguire; When: 2 - 3 days; Reason: Recheck today's complaints, Re-evaluation by your physician. Problem is new. Symptoms have improved. brant
--- NOTE | 2018-02-26 20:43 | ER ---
Nurse's Notes [facility] Name: Pratibha Howard Age: 42 yrs Sex: Female : 1975 Arrival Date: 02/26/2018 Time: 17:42 Bed 11 Private MD: Diagnosis: Fall due to bumping against object;Pain in left wrist;Pain in right wrist Presentation: 02/26 17:47 Presenting complaint: Patient states: i fell off my moms truck and hurt both my wrist; hj denies hitting head and LOC: happened an hour ago;. Transition of care: patient was not received from another setting of care. Onset of symptoms was February 26, 2018. Risk Assessment: Do you want to hurt yourself or someone else? Patient reports no desire to harm self or others. Initial Sepsis Screen: Does the patient meet any 2 criteria? No. Patient's initial sepsis screen is negative. Does the patient have a suspected source of infection? No. Patient's initial sepsis screen is negative. Care prior to arrival: None. 17:47 Method Of Arrival: Ambulatory 17:47 Acuity: RAFA 4 17:49 Mechanism of Injury: Fall. Trauma event details: Injury occurred in the [facility], Injury occurred: at home. Injury occurred: February 26, 2018. 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 - Social history:: Smoking status: Patient uses tobacco products, Patient/guardian denies using alcohol. - Ebola Screening: : Patient negative for fever greater than or equal to 101.5 degrees Fahrenheit, and additional compatible Ebola Virus Disease symptoms Patient denies exposure to infectious person Patient denies travel to an Ebola-affected area in the 21 days before illness onset. - Family history:: not pertinent. Screenin:49 Abuse screen: Denies threats or abuse. Denies injuries from another. Nutritional hj screening: No deficits noted. Tuberculosis screening: No symptoms or risk factors identified. Fall Risk None identified. Primary Survey: 17:51 NO uncontrolled hemorrhage observed. A: The patient is alert. Airway: patent, No hj supplemental oxygen in use on arrival. Oral cavity: clear, gag reflex present, Trachea midline. Breathing/Chest: Respiratory pattern: regular, Respiratory effort: spontaneous, unlabored, Breath sounds: clear, Chest inspection: symmetrical rise and fall of the chest. Circulation: Cardiac rhythm: sinus rhythm Heart tones present. Pulses: palpable right radial artery and left radial artery. Skin color: pink, Skin temperature: warm, dry. Disability Alert. Assessment: 19:42 General: Appears uncomfortable, Behavior is appropriate for age. Pain: Complains of lp1 pain in right wrist and left wrist Pain currently is 8 out of 10 on a pain scale. Quality of pain is described as sharp. Neuro: Level of Consciousness is awake, alert, obeys commands. Cardiovascular: No deficits noted. Respiratory: No deficits noted. GI: No deficits noted. : No deficits noted. EENT: No deficits noted. Derm: Skin is pink, warm \T\ dry. Musculoskeletal: Range of motion: limited in left wrist and right wrist. Vital Signs: 17:49 BP 103 / 64; Pulse 96; Resp 18; Temp 98.1(O); Pulse Ox 98% on R/A; Weight 97.98 kg; hj Height 5 ft. 0 in. (152.40 cm); Pain 10/10; 17:49 Body Mass Index 42.19 (97.98 kg, 152.40 cm) ED Course: 17:42 Patient arrived in ED. mr 17:48 Triage completed. hj 17:49 Arm band placed on right wrist. hj 19:21 Ildefonso Wilks MD is Attending Physician. brant 19:29 Isidra Donahue, RN is Primary Nurse. lp1 19:43 Patient has correct armband on for positive identification. lp1 20:10 Ice pack to injury. lp1 20:21 Wrist Left (3 View) XRAY: cock up In Process Unspecified. EDMS 20:21 Wrist Right 3 View XRAY: cock up In Process Unspecified. EDMS 20:42 Eleuterio Mcguire MD is Referral Physician. brant 21:06 No provider procedures requiring assistance completed. Patient did not have IV access lp1 during this emergency room visit. Velcro wrist splint applied to bilateral wrist. Administered Medications: 20:04 Not Given (Patient Refused): Motrin 600 mg PO once lp1 Outcome: 20:42 Discharge ordered by . brant 21:07 Discharged to home ambulatory, with friend. lp1 21:07 Condition: good 21:07 Discharge instructions given to patient, Instructed on discharge instructions, follow up and referral plans. medication usage, Demonstrated understanding of instructions, follow-up care, medications, Prescriptions given X 2. 21:08 Patient left the ED. lp1 Signatures: Dispatcher [employer] EDMS Ildefonso Wilks MD MD cha Rivera, Mary mr Pena, Laura, RN RN lp1 Dain Lindsey RN RN hj Corrections: (The following items were deleted from the chart) 17:51 17:49 97.98 kg; Height 5 ft. 0 in.; BMI: 42.1; Pain 10/10; hj hj 17:55 17:49 Pulse 96bpm; Resp 18bpm; Pulse Ox 98% RA; Temp 98.1F Oral; 97.98 kg; Height 5 ft. hj 0 in.; BMI: 42.1; Pain 10/10; hj 17:55 17:49 Pulse 96bpm; Resp 18bpm; Pulse Ox 98% RA; Temp 98.1F Oral; 97.98 kg; Height 5 ft. hj 0 in.; BMI: 42.1; Pain 10/10; hj
[2018-02-26 21:41] VITALS: BP 103/64; TEMP 98.1; O2SAT 98
== END 2018-02-26 21:08 | disposition home or self-care (01) ==
LOC: ER 17:39
DX: M25.531 Pain in right wrist (principal); M25.532 Pain in left wrist; W18.09XA Striking against other object with subsequent fall, initial encounter; Z72.0 Tobacco use; E03.9 Hypothyroidism, unspecified; F41.9 Anxiety disorder, unspecified; F31.9 Bipolar disorder, unspecified; Z79.899 Other long term (current) drug therapy
CPT/HCPCS: 99283

== ENCOUNTER 2018-05-07 12:41 | Emergency (ER) | payer OTHER ==
--- OUTSIDE RECORDS SUMMARY | 2018-05-07 12:44 | XMS REPORT | Clinical Summary ---
:1975 Author Organization [facility] Address [address] [place] [address] Care Team Providers Name Role Phone Darwin Mahoney MD Primary Care Provider Allergies Active Allergy Reactions Severity Noted Date Comments Penicillins 09/22/2015 Medications Medication Sig Dispensed Refills Start Date End Date Status PROVENTIL HFA 90 Inhale 1 puff 18 g 2 07/22/2017 Active mcg/actuation every 6 (six) inhalerIndications: hours as Chronic obstructive needed for pulmonary disease, shortness of unspecified COPD type breath. (HCC) cariprazine (VRAYLAR) Take 4.5 mg by 0 Active 4.5 mg capsule mouth daily. albuterol (VENTOLIN Inhale 2 puffs 1 Inhaler [...] mouth every 12 (twelve) hours as needed. naproxen (NAPROSYN) Take 1 tablet 28 tablet 0 03/05/2018 03/05/19 Active 500 MG tablet (500 mg total) 20 by mouth 2 (two) times a day with meals. clonAZEPAM (KlonoPIN) TAKE 1 TABLET 0 04/09/2018 Active 1 MG tablet BY MOUTH EVERY MORNING, 1 TABLET AT 1PM AND 1 TABLET AT 5PM haloperidol (HALDOL) TAKE 1 TABLET 0 04/03/2018 Active 10 MG tablet BY MOUTH EVERY DAY NEEDED FOR AGITATION. TAKE WITH BENADRYL. topiramate (TOPAMAX) TAKE 1 TABLET 0 04/23/2018 Active 100 MG tablet BY MOUTH TWICE EACH DAY OLANZapine (ZYPREXA) Take 5 mg by 0 04/15/2018 Active 5 MG tablet mouth nightly. levothyroxine TAKE 1 TABLET 11 04/09/2018 Active (SYNTHROID, LEVOXYL) (25 MCG TOTAL) 25 mcg tablet BY MOUTH EVERY MORNING FOR 30 DAYS. omeprazole (PriLOSEC) Take 1 capsule 90 capsule 1 05/02/2018 Active 40 MG (40 mg total) capsuleIndications: by mouth Gastroesophageal daily. reflux disease without esophagitis azithromycin Take 2 tablets 6 tablet 0 05/02/2018 05/08/19 Active (ZITHROMAX) 250 MG the first day, 19 tabletIndications: then 1 tablet Sinusitis, daily for 4 unspecified days. chronicity, unspecified location, Bronchitis predniSONE Take 1 tablet 5 tablet 0 05/02/2018 05/08/19 Active (DELTASONE) 20 mg (20 mg total) 19 tabletIndications: by mouth daily Sinusitis, for 5 days. unspecified chronicity, unspecified location, Bronchitis ibuprofen Take 200 mg by 0 01/01/20 Discontinued (ADVIL,MOTRIN) 200 MG mouth every 6 18 tablet (six) hours as needed for mild pain. sertraline (ZOLOFT) Take 50 mg by 0 05/23/19 Discontinued 50 MG tablet mouth daily. 18 diazePAM (VALIUM) 5 Take 5 mg by 0 05/23/19 Discontinued MG tablet mouth every 8 18 (eight) hours as needed for anxiety. benztropine Take 1 mg by 0 05/23/19 Discontinued (COGENTIN) 1 MG mouth daily. 18 tablet divalproex (DEPAKOTE) Take 500 mg by 0 11/23/19 Discontinued 500 MG 24 hr tablet mouth. 18 DIPHENHYDRAMINE HCL Take by mouth. 0 05/23/19 Discontinued (BENADRYL ORAL) 2 tabs at 18 night omeprazole (PriLOSEC) Take 40 mg by 0 01/01/20 Discontinued 40 MG capsule mouth as 18 needed. ARIPiprazole Take 15 mg by 0 05/23/19 Discontinued (ABILIFY) 15 MG mouth daily. 18 tablet levothyroxine Take 1 tablet 30 tablet 2 03/15/2017 08/22/19 Discontinued (SYNTHROID, LEVOXYL) (25 mcg total) 18 25 mcg by mouth every tabletIndications: morning for 30 Hypothyroidism, days. unspecified type sertraline (ZOLOFT) Take 25 mg by 0 08/22/19 Discontinued 25 MG tablet mouth daily. 18 SILENOR 3 mg tablet Take 1 tablet 0 05/14/2017 05/03/19 Discontinued by mouth 19 nightly. ALPRAZolam (XANAX) 1 Take 1 mg by 0 05/03/19 Discontinued MG tablet mouth 3 19 (three) times a day. propranolol (INDERAL) Take 20 mg by 0 [...] Take 1 tablet 60 tablet 1 08/21/2017 03/05/19 Discontinued mg tabletIndications: (20 mg total) 19 Leg [...] tablet mouth every 12 18 (twelve) hours. dicyclomine (BENTYL) Take 40 mg by 0 12/26/2017 03/05/19 Discontinued 20 mg tablet mouth every 6 19 (six) hours as needed. acetaminophen-codeine Take 1 tablet 60 tablet 0 12/31/2017 01/11/20 (TYLENOL WITH CODEINE by mouth every 18 #4) 300-60 mg per 6 (six) hours tabletIndications: as needed for Abdominal pain, moderate pain unspecified abdominal for up to 10 location, Midline low days. back pain without sciatica, unspecified chronicity omeprazole (PriLOSEC) Take 1 capsule 90 capsule 1 12/31/2017 05/03/19 Discontinued 40 MG (40 mg total) 19 capsuleIndications: by mouth Gastroesophageal daily. 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 Bipolar 1 disorder 09/22/2015 Overview: FU w psych Tobacco use 09/22/2015 Resolved Problems Problem Noted Date Resolved Date Chest pain 10/03/2017 11/21/2017 Thrombocytopenia 05/23/2017 05/02/2018 Encounters Date Type Specialty Care Team Description 05/06/2018 Telephone Internal Medicine Darwin Mahoney MD 05/02/2018 Office Visit Family Medicine Maru, Sinusitis, unspecified chronicity, unspecified location (Primary Dx); MD Darwin Bronchitis; Chronic obstructive pulmonary disease, unspecified COPD type (HCC); Flu-like symptoms; Gastroesophageal reflux disease without esophagitis 04/30/2018 Orders Only Internal Medicine Maru, Well woman exam MD Darwin (Primary Dx) 04/29/2018 Telephone Family Medicine Darwin Mahoney MD 04/29/2018 Telephone Access Nasra Muñoz MA 04/25/2018 Telephone Family Medicine Darwin Mahoney MD 03/05/2018 Office Visit Family Medicine Maru, Pain in wrist, MD Darwin unspecified laterality Aranza Gama (Primary Dx) MD Harper 02/28/2018 Telephone Family Medicine Darwin Mahoney MD 02/26/2018 Nurse Triage Access Trisha Rodriguez RN [...] Ramon 11/05/2017 Office Visit Internal Medicine Bindu Aguira Bilateral leg edema (Primary Dx); MD Ramon [...] WALTER Francis 10/07/2017 Orders Only Procedural Nazario, [place] Palpitations Cardiology 10/03/2017 Office Visit Cardiology Jani, Crawford Min, Palpitations (Primary MD Dx) 09/30/2017 Hospital Encounter Procedural Gunter, Crawford Min, Essential hypertension; Cardiology Pain in both lower extremities; Edema, unspecified type 09/27/2017 Hospital Encounter Procedural Gunter, Crawford Min, Essential hypertension; Cardiology MD Pain in both lower extremities; Edema, unspecified type 09/27/2017 Hospital Encounter Procedural Gunter, Crawford Min, Essential hypertension; Cardiology Pain in both lower extremities; Edema, unspecified type 09/17/2017 Telephone Family Medicine Caroline Priest RN 09/02/2017 Office Visit Cardiology Gunter, Crawford Min, Essential hypertension ( Primary Dx); Pain in both lower extremities; Edema, unspecified type 08/27/2017 Office Visit Family Medicine Maru Tremor (Primary Dx); MD Darwin Tobacco use 08/27/2017 Telephone Family Medicine Darwin Mahoney MD 08/21/2017 Office Visit Family Juwan Mahoney Hypothyroidism, unspecified type (Primary Dx); MD Darwin [...] essential Lyndon F., MD 06/06/2017 Hospital Encounter Radiology Fadi Elizabeth essential Lyndon F., MD 05/28/2017 Transcribe Orders [...] unspecified COPD type; Tobacco use 05/22/2017 Telephone [facility] Darwin Mahoney MD after 05/06/2017 Immunizations Name Dates Previously Given Next Due [...] Never Used Tobacco Cessation: Ready to Quit: Yes; Counseling Given: Yes Comments: 5 wks Alcohol Use Drinks/Week oz/Week Comments Yes Sex Assigned at Date Recorded Not on file Job Start Date Occupation Industry Not on file Not on file Not on file Travel History Travel Start Travel End No recent travel history available. Last Filed Vital Signs Vital Sign Reading Time Taken Blood Pressure 109/67 05/02/2018 3:31 PM [employer] Pulse 77 05/02/2018 3:31 PM [employer] Temperature 36.6 C (97.8 F) 05/02/2018 3:31 PM [employer] Respiratory Rate 16 05/02/2018 3:31 PM [employer] Oxygen Saturation 97% 05/02/2018 3:31 PM [employer] Inhaled Oxygen Concentration - - Weight 95.9 kg (211 lb 6.4 oz) 05/02/2018 3:31 PM [employer] Height 165.1 cm (5' 5") 05/02/2018 3:31 PM [employer] Body Mass Index 35.18 05/02/2018 3:31 PM [employer] Plan of Treatment Date Type Specialty Care Team Description 05/21/2018 Office Visit Family Medicine Darwin Mahoney MD [address] [facility] [address] [place] [address] [phone] Health Maintenance Due Date Last Done Comments BREAST CANCER SCREENING 1975 CERVICAL CANCER SCREENING 08/21/2018 Postponed from 1997 (Patient Refused) INFLUENZA VACCINE Completed 11/21/2017 Procedures Procedure Name Priority Date/Time Associated Diagnosis Comments POCT INFLUENZA A/B Routine 05/02/2018 3:59 Flu-like symptoms Results for this PM [employer] procedure are in the results section. STREP SCREEN CULTURE Routine 02/18/2018 4:24 Pharyngitis, Results for this PM [employer] unspecified etiology procedure are in the results section. POCT RAPID STREP A Routine 02/18/2018 4:12 Fever, unspecified Results for this PM [employer] fever cause procedure are in the results section. POCT INFLUENZA A/B Routine 02/18/2018 4:12 Fever, unspecified Results for this PM [employer] fever cause procedure are in the results [...] DOPPLER Pain in both lower the results (62364) extremities section. Edema, unspecified type ECG 12-LEAD [...] section. THYROID PANEL WITH TSH Routine 05/20/2017 after 05/06/2017 Results POC Influenza A/B (05/02/2018 3:59 PM [employer])Only the most recent of2 resultswithin the time period is included. Rapid Influenza A Ag negative Rapid Influenza B Ag negative Specimen Nasopharyngeal Strep screen culture (02/18/2018 4:24 PM [employer]) Streptococcus, group A SEE NOTE [facility] culture Comment: STREPTOCOCCUS, GROUP A CULTURE MICRO NUMBER:[id number] TEST STATUS: FINAL SPECIMEN SOURCE: NOT GIVEN SPECIMEN QUALITY:ADEQUATE RESULT:No group A Streptococcus isolated Specimen Throat Resulting Agency Comment Performing Organization Information: Site ID: [facility] Name: [facility] Address: [address] [place] [phone] Director: Milagros Cueva Performing Organization Address [facility] [place] [address] POC rapid strep A (02/18/2018 4:12 PM [employer]) Rapid strep A antigen result Negative Negative Specimen Swab T3, free (11/05/2017 2:48 PM CDT) T3, free 2.4 2.3 - 4.2 pg/mL [employer] [facility] [place] Specimen Blood Resulting Agency Comment Performing Organization Information: Site ID: [facility] Name: [facility] Address: [address] [place] [phone] Director: Milagros Cueva Performing Organization Address [facility] Phone Number [facility] [address] [address] Thyroid stimulating hormone (11/05/2017 2:48 PM CDT)Only the most recent of2 resultswithin the time period is included. TSH 2.81 mIU/L [employer] [facility] [place] Comment: Reference Range > or=20 Years0.40-4.50 Ranges First trimester0.26-2.66 Second trimester 0.55-2.73 Third trimester0.43-2.91 Specimen Blood Resulting Agency Comment Performing Organization Information: Site ID: [facility] Name: [facility] Address: [address] [place] [phone] Director: Milagros Cueva Performing Organization Address [facility] [place] [address] T4, free (11/05/2017 2:48 PM CDT)Only the most recent of2 resultswithin the time period is included. T4, free 1.0 0.8 - 1.8 ng/dL [employer] [place] Specimen Blood Resulting Agency Comment Performing Organization Information: Site ID: [id number] Name: [employer] [facility] Address: [address] [place] [phone] Director: Milagros Cueva Performing Organization Address [facility] Phone Number [facility] [address] [address] Basic metabolic panel (11/01/2017 11:08 AM CDT) Glucose 84 65 - 99 mg/dL [employer] Comment: [place] Fasting reference interval BUN, whole blood 11 7 - 25 mg/dL [employer] [facility] [place] Creatinine 1.00 0.50 - 1.10 mg/dL [facility] [place] EGFR Non-Afr. [place] 70 > OR=60 [facility] mL/min/1.73m2 [place] EGFR 81 > OR=60 [facility] mL/min/1.73m2 [place] BUN/creatinine ratio NOT APPLICABLE 6 - 22 (calc) [employer] [place] Sodium 140 135 - 146 mmol/L [employer] [facility] [place] Potassium 4.5 3.5 - 5.3 mmol/L [facility] [place] Chloride 102 98 - 110 mmol/L [employer] [facility] [place] CO2 30 20 - 32 mmol/L [facility] [place] Calcium 9.1 8.6 - 10.2 mg/dL [employer] [facility] [place] Specimen Blood Resulting Agency Comment Performing Organization Information: Site ID: [id number] Name: [facility] Address: [address] [place] [phone] Director: Milagros Cueva Performing Organization Address [facility] Phone Number [facility] [address] [address] CV Holter monitor 48 hour (10/03/2017 10:00 AM CDT) Hookup Date [id number] [facility] MUSE Hookup Time 912851 [facility] MUSE Acquisition Duration 746161 [facility] MUSE # of Ventricular Beats in Runs 0 [facility] MUSE # OF LONGEST VENTRICULAR BEATS H MUSE # of Supraventricular Beats in 0 [facility] MUSE Runs # of Longest Supraventricular [facility] MUSE Beats Max Heart Rate 159 [facility] MUSE Min Heart Rate 52 [facility] MUSE Longest RR 1.390 [facility] MUSE Diagnosis -Basic rhythm Sinus rhythm [facility] MUSE with frequent Sinus tachycardia--Rare Premature atrial complexes Premature ventricular complexes-several episodes of palpitation : all sinus tachycardia - Narrative Performed At Performing Organization Address City/State/Zipcode Phone Number [facility] MUSE [address] [place] [address] Pv physiologic arterial lower extremity complete w rossy (09/30/2017 2:20 PM CDT) Narrative Performed At [facility] Vascular Diagnostic Laboratory Physiologic Arterial Leg Report [address] [place] [address] Pat.Name:PRATIBHA HOWARD.ID:[id number] St.Date: 09/30/2017 Refer.MD:YVETTE GUNTER MD Exam Time: 1:40:00 PMStudy Type:Physiologic Leg DOBAge:1975,42Y Sex: FEMALE Sonogrphr: Collazo Vi, RVTPat. Stat.:Outpatient TapeVol: HV, CPT - 4: 55243 Echo Event ID:[id number] Order ID:[id number] Reason for Study:Bilateral leg pain. Procedures:Ankle/brachial pressures, [...] PRESSURE(mmHg): RIGHT LEFT Brachial 94 91 Low [id number] 118 [place]alf [address] Ankle DP 95 109 Ankle [id number] Great Toe 8481 ANKLE/BRACHIAL INDEX: RIGHTLEFT Dorsalis [...] Vascular Diagnostic Laboratory Physiologic Arterial Leg Report [address] [place] [address] Pat.Name: PRATIBHA HOWARD Pat.ID: [id number] St.Date: 09/30/2017 Refer.MD: YVETTE GUNTER MD Exam Time: 1:40:00 PM Study Type:Physiologic Leg Age: 1 1975,42Y Sex: FEMALE Sonogrphr: Zay Oliveira, RVT Pat. Stat.:Outpatient Tape Vol: HV, CPT - 4: 60131 Echo Event ID:[id number] Order ID: [id number] Reason for Study:Bilateral leg pain. Procedures:Ankle/brachial pressures, [...] RPVI Performing Organization Address City/State/Zipcode Phone Number [facility] [address] [place] [address] Pv duplex venous lower extremity (09/27/2017 3:00 PM CDT) Narrative Performed At [facility] Vascular Ultrasound Laboratory Lower Extremity Venous Report [address] [place] [address] Pat.Name:PRATIBHA HOWARD Pat.ID:[id number] .Date: 09/27/2017 Refer.MD:YVETTE GUNTER MD Exam Time: 1:00:00 PMStudy Type:LE Venous DOBAge:1975,42Y Sex: FEMALE Sonogrphr: Jenny Liang RVTPat. Stat.:Outpatient [facility]: , CPT - 4: 56458 Echo Event ID:[id number] Order ID:[id number] Reason for Study:Shortness of breath. History of [...] Ultrasound Laboratory Lower Extremity Venous Report [address] [place] [address] Pat.Name: PRATIBHA HOWARD.ID: [id number] .Date: 09/27/2017 Refer.MD: YVETTE GUNTER MD Exam Time: 1:00:00 PM Study Type:LE Venous Age: 1 1975,42Y Sex: FEMALE Sonogrphr: Jenny Liang RVT Pat. Stat.:Outpatient Room: [facility] 16 Tape Vol: RF, CPT - 4: 06429 Echo Event ID:[id number] Order ID: [id number] Reason for Study:Shortness of breath. History of [...] MD Performing Organization Address City/State/Zipcode Phone Number [facility] [address] [place] [address] Echocardiogram complete w contrast and 3D if needed (09/27/2017 1:57 PM CDT) Narrative Performed At [facility] Echocardiography Report [address]Name:PRATIBHA HOWARD.ID:[id number] .Date: 09/27/2017 Refer.MD:YVETTE GUNTER MD Exam Time: 1:36:00 PMStudy Type:Routine Echo Height:60inWeight: 200lb BSA: 1.87 m2 DOBAge:1975,42Y Sex: FEMALEBP:98/57 HR:91 bpmSonogrphr: Gale Da Silva RDCS Pat. Stat.:OutpatientStudy Status:Final Echo Event ID:[id number] Order ID:[id number] Reason for Study:RV FUNCTION Procedures:2D Echo, Colorflow [...] - 09/28/2017 1:27 PM CDT Echocardiography Report [address] [place] [address] Pat.Name: PRATIBHA HOWARD Pat.ID: [id number] .Date: 09/27/2017 Refer.MD: YVETTE GUNTER MD Exam Time: 1:36:00 PM Study Type:Routine Echo Height: 60in Weight: 200lb BSA: 1.87 m2 Age: 1 1975,42Y Sex: FEMALE BP: 98/57 HR: 91 bpm Sonogrphr: Gale Da Silva RDCS Pat. Stat.:Outpatient Study Status:Final Echo Event ID:[id number] Order ID: [id number] Reason for Study:RV FUNCTION Procedures:2D Echo, Colorflow [...] Index 9.7 ml/m RA LngAx 4.3 cm Mulugeta 09/28/2017 01:26 PM Clemente Cho MD Performing Organization Address [facility] Phone Number [facility] [address] [place] [address] ECG 12 lead (09/02/2017 10:09 AM CDT) Ventricular rate 99 [facility]USE Atrial rate 99 [facility] QRSD interval 64 [facility] QT interval 314 [facility] QTC interval 402 [facility] QRS axis 1 71 [facility] T wave axis -82 [facility] EKG impression Sinus tachycardia-Poor R wave progression-ST [facility] MUSE & T wave abnormality, consider inferior ischemia-Abnormal ECG-No previous ECGs available- Performing Organization Address [facility] Phone Number [facility] MUSE [address] [place] [address] NM Brain Spect W I 123 [employer] [...] 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 [facility]-[id number] Procedure Note Interface, Radiology Results Incoming - [...] 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 [facility]-[id number] Performing Organization Address [facility] Phone Number [facility] [address] [place] [address] URIAH SCREEN W IFA W REFLEX TO TITER (05/24/2017 11:28 AM CDT) URIAH screen NEGATIVE NEGATIVE [facility] Comment: URIAH IFA is a first line screen for detecting the presence of up to approximately 150 autoantibodies in various autoimmune diseases. A negative URIAH IFA result suggests URIAH-associated autoimmune diseases are not present at this time. Visit Physician FAQs for interpretation of all antibodies in the [place], prevalence, and association with diseases at http://education.[employer]mercial[employer]ribe/ faq/RJA635 Specimen Blood Resulting Agency Comment Performing Organization Information: Site ID: [id number] Name: [facility] Address: [address] [place] [phone] Director: Dr. Clemente Nolan Performing Organization Address City/State/Zipcode Phone Number [address] [address] Sedimentation rate (05/24/2017 11:28 AM CDT) Sedimentation rate 1 < OR=20 mm/h [facility] [place] Specimen Blood Resulting Agency Comment Performing Organization Information: Site ID: [facility] Name: [facility] Address: [address] [place] [phone] Director: Milagros Cueva MD Performing Organization Address [facility] [place] [address] Rheumatoid factor (05/24/2017 11:28 AM CDT) Rheumatoid factor <14 <14 IU/mL [employer] [facility] [place] Specimen Blood Resulting Agency Comment Performing Organization Information: Site ID: [facility] Name: [facility] Address: [address] [place] [phone] Director: Milagros Cueva MD Performing Organization Address [facility]/State/Zipcode Phone Number [facility] [address] [address] C-reactive protein (05/24/2017 11:28 AM CDT) CRP 1.3 <8.0 mg/L [employer] [place] Specimen Blood Resulting Agency Comment Performing Organization Information: Site ID: [facility] Name: [facility] Address: [address] [place] [phone] Director: Milagros Cueva MD Performing Organization Address City/State/Zipcode Phone Number [facility] [place] [address] [place] [address] Thyroid Panel With TSH (05/20/2017) Specimen Blood Narrative Performed At after 05/06/2017 Insurance Payer Benefit Plan / Group Subscriber ID Type Phone Address MEDICARE MEDICARE PART A AND B xxxxxxxxxxx Medicare [place], [place] MEDICAID MEDICAID xxxxxxxxx Medicaid ([place]) [place] [address] Advance Directives Patient has advance care planning documents on file. For more information, please contact:Hemanth White[address] [place] [address]
[2018-05-07] MEDS ORDERED: ALBUTEROL 2.5 MG/3 ML NEB SOL ONE (14:08)
[2018-05-07] MEDS ORDERED: predniSONE 20 MG TAB ONE (14:09)
[2018-05-07] MEDS ORDERED: IPRATROPIUM BROM 0.5MG/2.5ML ONE (14:09)
[2018-05-07] MEDS ORDERED: NA CHLORIDE 0.9% 1,000 ML ONE (14:16)
[2018-05-07 14:26] LABS: Absolute Lymphocytes (CBC) 3.4 K/uL (0.7-4.9); Absolute Monocytes 0.5 K/uL (0.1-1.3); Absolute Neutrophil 9.5 K/uL (1.8-8.0); Eosinophils % 0.2 % (0-4.4); Hematocrit 41.8 % (36.0-45.0); MPV 8.1 fL (7.6-11.3); Monocytes % 3.9 % (3.3-12.3); RBC Red Blood Cell Count 4.28 M/uL (3.86-4.86)
--- NOTE | 2018-05-07 14:38 | RAD REPORT ---
EXAM DESCRIPTION: RAD - Chest Pa And Lat (2 Views) - 05/07/2018 2:33 pm CLINICAL HISTORY: Fever;Cough Chest pain. COMPARISON: Chest Single View dated 09/19/2017; Chest Single View dated 07/08/2016; CHEST PA AND LAT 2 VIEW dated 04/16/2013; CHEST SINGLE VIEW dated 04/16/2012 FINDINGS: The lungs are clear. The heart is normal in size. No displaced fractures. IMPRESSION: No acute or concerning finding suspected.
[2018-05-07 14:49] LABS: Albumin 4.3 g/dL (3.4-5.0); Bilirubin Total 0.4 mg/dL (0.2-1.0); Protein, Total 7.5 g/dL (6.4-8.2)
[2018-05-07 14:51] LABS: Potassium 2.9 mmol/L (3.5-5.1)
[2018-05-07] MEDS ORDERED: POTASSIUM 25 MEQ EFFERV TAB ONE (15:13)
[2018-05-07] MEDS ORDERED: FAMOTIDINE 20 MG/2 ML VIAL IV ONE (15:38)
--- NOTE | 2018-05-07 16:30 | EDPHYS ---
Physician Documentation [facility] Name: Pratibha Howard Age: 43 yrs Sex: Female : 1975 Arrival Date: 05/07/2018 Time: 12:44 Bed 15 Private MD: Out, [facility] ED Physician Rajendra Marcus HPI: 05/07 14:00 This 43 yrs old Female presents to ER via Ambulatory with complaints of pm1 Cough, Nausea, Headache. 14:00 The patient or guardian reports cough, with productive sputum. Onset: The pm1 symptoms/episode began/occurred 10 day(s) ago. Severity of symptoms: in the emergency department the symptoms are actually worse. Modifying factors: The symptoms are alleviated by nothing, the symptoms are aggravated by nothing. Associated signs and symptoms: Pertinent positives: diarrhea, fever at onset 10 days ago, Pertinent negatives: chest pain, ear ache, vomiting. The patient has not experienced similar symptoms in the past. The patient has been recently seen by a physician: the patient's primary care provider, 5 day(s) ago, with similar presenting complaints. Patient was diagnosed with sinusitis, given zithromycin and steroid. Patient reports no improvement. 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 - Social history:: Smoking status: Patient uses tobacco products, smokes one pack cigarettes per day. - Ebola Screening: : Patient denies travel to an Ebola-affected area in the 21 days before illness onset. ROS: 14:00 Constitutional: Negative for fever, chills, and weight loss, Eyes: Negative for injury, pm1 pain, redness, and discharge. 14:00 Neck: Negative for injury, pain, and swelling, Cardiovascular: Negative for chest pain, palpitations, and edema. 14:00 Abdomen/GI: Negative for abdominal pain, nausea, vomiting, diarrhea, and constipation, Back: Negative for injury and pain, : Negative for injury, bleeding, discharge, and swelling, MS/Extremity: Negative for injury and deformity, Skin: Negative for injury, rash, and discoloration, Neuro: Negative for headache, weakness, numbness, tingling, and seizure. 14:00 ENT: Positive for rhinorrhea, sinus congestion, sinus pain, sore throat. 14:00 Respiratory: Positive for cough, shortness of breath. Exam: 14:00 Constitutional: This is a well developed, well nourished patient who is awake, alert, pm1 and in no acute distress. Head/Face: Normocephalic, atraumatic. Eyes: Pupils equal round and reactive to light, extra-ocular motions intact. Lids and lashes normal. Conjunctiva and sclera are non-icteric and not injected. Cornea within normal limits. Periorbital areas with no swelling, redness, or edema. ENT: Nares patent. No nasal discharge, no septal abnormalities noted. Tympanic membranes are normal and external auditory canals are clear. Oropharynx with no redness, swelling, or masses, exudates, or evidence of obstruction, uvula midline. Mucous membranes moist. Neck: Trachea midline, no thyromegaly or masses palpated, and no cervical lymphadenopathy. Supple, full range of motion without nuchal rigidity, or vertebral point tenderness. No Meningismus. Chest/axilla: Normal chest wall appearance and motion. Nontender with no deformity. No lesions are appreciated. Cardiovascular: Regular rate and rhythm with a normal S1 and S2. No gallops, murmurs, or rubs. Normal PMI, no JVD. No pulse deficits. Abdomen/GI: Soft, non-tender, with normal bowel sounds. No distension or tympany. No guarding or rebound. No evidence of tenderness throughout. Back: No spinal tenderness. No costovertebral tenderness. Full range of motion. Skin: Warm, dry with normal turgor. Normal color with no rashes, no lesions, and no evidence of cellulitis. MS/ Extremity: Pulses equal, no cyanosis. Neurovascular intact. Full, normal range of motion. 14:00 Respiratory: the patient does not display signs of respiratory distress, Respirations: normal, Breath sounds: wheezing: expiratory is heard diffusely. 14:00 Neuro: Orientation: is normal. Vital Signs: 13:02 BP 137 / 76; Pulse 90; Resp 17; Temp 97.9(O); Pulse Ox 100% on R/A; Weight 95.71 kg tw2 (R); Height 5 ft. 0 in. (152.40 cm); Pain 8/10; 14:37 BP 100 / 70; Pulse 73; Resp 20; Pulse Ox 100% on R/A; hj 15:30 BP 104 / 66; Pulse 84; Resp 18; Pulse Ox 100% on R/A; hj 16:11 BP 101 / 53; Pulse 83; Resp 18; Pulse Ox 100% on R/A; hj 13:02 Body Mass Index 41.21 (95.71 kg, 152.40 cm) tw2 MDM: 13:46 Patient medically screened. pm1 16:25 Data reviewed: vital signs. Data interpreted: Pulse oximetry: on room air is 100 %. pm1 Interpretation: normal. Counseling: I had a detailed discussion with the patient and/or guardian regarding: the historical points, exam findings, and any diagnostic results supporting the discharge/admit diagnosis, lab results, radiology results, the need for outpatient follow up, to return to the emergency department if symptoms worsen or persist or if there are any questions or concerns that arise at home. 05/07 13:55 Order name: Flu; Complete Time: 14:48 pm1 05/07 13:55 Order name: Strep; Complete Time: 14:30 pm1 05/07 13:55 Order name: CBC with Diff; Complete Time: 14:30 pm1 05/07 13:55 Order name: CMP; Complete Time: 14:57 pm1 05/07 13:55 Order name: Chest Pa And Lat (2 Views) XRAY; Complete Time: 14:43 pm1 05/07 14:28 Order name: Throat Culture EDMA 05/07 13:55 Order name: IV Saline Lock; Complete Time: 14:15 pm1 Administered Medications: 13:55 Drug: predniSONE 60 mg Route: PO; 14:15 Follow up: Response: No adverse reaction 13:55 Drug: Albuterol - atroVENT (3:1) (2.5 mg - 0.5 mg) 3 ml Route: Nebulizer; hj 14:15 Follow up: Response: No adverse reaction; Wheezing diminished hj 14:15 Drug: NS 0.9% 1000 ml Route: IV; Rate: 1000 ml; Site: left antecubital; hj 14:58 Drug: Potassium Effervescent Tablet 50 mEq Route: PO; hj 15:04 Follow up: Response: No adverse reaction hj 15:24 Drug: Pepcid 20 mg Route: IVP; Site: left antecubital; hj 15:27 Follow up: Response: No adverse reaction hj Disposition: 05/08 08:05 Co-signature as Attending Physician, Rajendra Marcus MD I agree with the assessment and kdr plan of care. Disposition: 05/07/18 16:30 Discharged to Home. Impression: Diarrhea, unspecified, Hypokalemia, Acute sinusitis. - Condition is Stable. - Discharge Instructions: Potassium Content of Foods, Sinusitis, Adult, Diarrhea, Adult, [id number]. - Prescriptions for Levaquin 750 mg Oral Tablet - take 1 tablet by ORAL route once daily for 5 days; 5 tablet. - Work release form, Medication Reconciliation Form, Thank You Letter, Antibiotic Education, Prescription Opioid Use form. - Follow up: Emergency Department; When: As needed; Reason: Worsening of condition. Follow up: Private Physician; When: 2 - 3 days; Reason: Recheck today's complaints, Continuance of care, Re-evaluation by your physician. - Problem is new. - Symptoms have improved. Signatures: Dispatcher [employer] EDMA Rajendra Marcus MD MD [facility] Dain Lindsey RN RN hj Marinas, Patrick, [employer]ANT MANAGER pm1 Meme Richardson RN RN tw2 Corrections: (The following items were deleted from the chart) 05/07 16:50 16:30 05/07/2018 16:30 Discharged to Home. Impression: Diarrhea, unspecified; hj Hypokalemia; Acute sinusitis. Condition is Stable. Forms are Medication Reconciliation Form, Thank You Letter, Antibiotic Education, Prescription Opioid Use. Follow up: Emergency Department; When: As needed; Reason: Worsening of condition. Follow up: Private Physician; When: 2 - 3 days; Reason: Recheck today's complaints, Continuance of care, Re-evaluation by your physician. Problem is new. Symptoms have improved. pm1
--- NOTE | 2018-05-07 16:30 | ER ---
Nurse's Notes [facility] Name: Pratibha Howard Age: 43 yrs Sex: Female : 1975 Arrival Date: 05/07/2018 Time: 12:44 Bed 15 Private MD: Out, [facility] Diagnosis: Diarrhea, unspecified;Hypokalemia;Acute sinusitis Presentation: 05/07 13:01 Presenting complaint: Patient states: i went to see my PCP on Saturday with flu like tw2 symptoms she gave zpack and prednisone 20mg and i feel worse today than i did, i feel short of breath and it hurts to breathe real deep. Transition of care: patient was not received from another setting of care. Onset of symptoms was May 07, 2018. Risk Assessment: Do you want to hurt yourself or someone else? Patient reports no desire to harm self or others. Initial Sepsis Screen: Does the patient meet any 2 criteria? No. Patient's initial sepsis screen is negative. Does the patient have a suspected source of infection? No. Patient's initial sepsis screen is negative. Care prior to arrival: None. 13:01 Method Of Arrival: Ambulatory tw2 13:01 Acuity: RAFA 3 tw2 Triage Assessment: 13:05 General: Appears in no apparent distress. obese, Behavior is calm, cooperative, tw2 appropriate for age. Pain: Complains of pain in headache and body aches. GI: Reports nausea. 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 - Social history:: Smoking status: Patient uses tobacco products, smokes one pack cigarettes per day. - Ebola Screening: : Patient denies travel to an Ebola-affected area in the 21 days before illness onset. Screenin:26 Abuse screen: Denies threats or abuse. Denies injuries from another. Nutritional hj screening: No deficits noted. Tuberculosis screening: No symptoms or risk factors identified. Fall Risk None identified. Assessment: 13:27 General: Appears in no apparent distress. uncomfortable, Behavior is calm, cooperative, hj appropriate for age. Pain: Denies pain. Neuro: Level of Consciousness is awake, alert, obeys commands, Oriented to person, place, time, situation, Appropriate for age. Cardiovascular: Capillary refill < 3 seconds Patient's skin is warm and dry. Respiratory: Airway is patent Respiratory effort is even, unlabored, Respiratory pattern is regular, symmetrical. GI: Abdomen is non-distended. : No signs and/or symptoms were reported regarding the genitourinary system. EENT: No signs and/or symptoms were reported regarding the EENT system. Derm: No signs and/or symptoms reported regarding the dermatologic system. Musculoskeletal: No signs and/or symptoms reported regarding the musculoskeletal system. 13:39 Reassessment:. General: Appears. Respiratory: Reports cough that is productive, Breath pc1 sounds with wheezes bilaterally. in right upper lobe, left upper lobe, left posterior upper lobe and right posterior upper lobe Onset: The symptoms/episode began/occurred Symptoms began 2-. 14:36 Reassessment: awaiting labs and XRAY results;. hj 14:51 Reassessment: critical lab- K+- 2.9; provider notified;. hj 15:31 Reassessment: Patient and/or family updated on plan of care and expected duration. Pain hj level reassessed. Patient is alert, oriented x 3, equal unlabored respirations, skin warm/dry/pink. complaints of abd pain; Pepcid given per MD order;. 16:11 Reassessment: Patient and/or family updated on plan of care and expected duration. Pain hj level reassessed. Patient is alert, oriented x 3, equal unlabored respirations, skin warm/dry/pink. feeling better. Vital Signs: 13:02 BP 137 / 76; Pulse 90; Resp 17; Temp 97.9(O); Pulse Ox 100% on R/A; Weight 95.71 kg tw2 (R); Height 5 ft. 0 in. (152.40 cm); Pain 8/10; 14:37 BP 100 / 70; Pulse 73; Resp 20; Pulse Ox 100% on R/A; hj 15:30 BP 104 / 66; Pulse 84; Resp 18; Pulse Ox 100% on R/A; hj 16:11 BP 101 / 53; Pulse 83; Resp 18; Pulse Ox 100% on R/A; hj 13:02 Body Mass Index 41.21 (95.71 kg, 152.40 cm) tw2 ED Course: 12:44 Patient arrived in ED. mr 12:45 Out, of [facility] is Private Physician. mr 13:02 Triage completed. tw2 13:06 Arm band placed on. tw2 13:26 Dain Lindsey, OZIEL is Primary Nurse. hj 13:27 Patient has correct armband on for positive identification. Placed in gown. Bed in low hj position. Call light in reach. Side rails up X 1. 13:40 Yamil Saravia NP is PHCP. pm1 13:40 Rajendra Marcus MD is Attending Physician. pm1 14:07 Flu Sent. mh5 14:07 Strep Sent. mh5 14:07 Flu and/or RSV swab sent to lab. Strep swab sent to lab. mh5 14:15 CMP Sent. hj 14:15 CBC with Diff Sent. hj 14:16 Inserted saline lock: 20 gauge in left antecubital area, using aseptic technique. pc1 14:16 Initial lab(s) drawn, by co, sent to lab. hj 14:22 Patient moved to radiology via wheelchair. sw 14:30 X-ray completed. Patient tolerated procedure well. Patient moved back from radiology. jb2 14:32 Chest Pa And Lat (2 Views) XRAY In Process Unspecified. EDMS Administered Medications: 13:55 Drug: predniSONE 60 mg Route: PO; hj 14:15 Follow up: Response: No adverse reaction hj 13:55 Drug: Albuterol - atroVENT (3:1) (2.5 mg - 0.5 mg) 3 ml Route: Nebulizer; hj 14:15 Follow up: Response: No adverse reaction; Wheezing diminished hj 14:15 Drug: NS 0.9% 1000 ml Route: IV; Rate: 1000 ml; Site: left antecubital; hj 14:58 Drug: Potassium Effervescent Tablet 50 mEq Route: PO; 15:04 Follow up: Response: No adverse reaction hj 15:24 Drug: Pepcid 20 mg Route: IVP; Site: left antecubital; hj 15:27 Follow up: Response: No adverse reaction Outcome: 16:30 Discharge ordered by pm1 16:50 Patient left the ED. Signatures: Dispatcher [employer] EDID Bhargav Zoey ThomasKendrick Shannon sw Joaquin, Henry, RN RN hj Marinas, Patrick, REVENUE COORDINATOR REVENUE COORDINATOR pm1 Meme Richardson RN RN Aranza Renae Yamil Fisher pc1 Corrections: (The following items were deleted from the chart) 13:28 13:26 GI: Abdomen is [facility]
[2018-05-07 16:55] VITALS: TEMP 97.9; O2SAT 100
[2018-05-07 16:59] VITALS: BP 101/53
== END 2018-05-07 16:50 | disposition home or self-care (01) ==
LOC: ER 12:41
DX: J01.90 Acute sinusitis, unspecified (principal); E87.6 Hypokalemia; R19.7 Diarrhea, unspecified; F17.210 Nicotine dependence, cigarettes, uncomplicated; F41.9 Anxiety disorder, unspecified; F31.9 Bipolar disorder, unspecified; E03.9 Hypothyroidism, unspecified; Z88.0 Allergy status to penicillin; Z88.5 Allergy status to narcotic agent
CPT/HCPCS: 87070; 85025; 36415; 87081; 80053; 87804 ×2; 71046; 94640; 96374; 99284; J7030; J7512

== ENCOUNTER 2019-01-26 10:21 | Emergency (ER) | payer OTHER ==
[2019-01-26] MEDS ORDERED: DICYCLOMINE HCL 10 MG CAP ONE (12:02)
[2019-01-26] MEDS ORDERED: METOCLOPRAMIDE 5 MG TAB ONE (12:17)
[2019-01-26] MEDS ORDERED: METOCLOPRAMIDE 10 MG/2mL INJ ONE (12:39)
[2019-01-26] MEDS ORDERED: ONDANSETRON 4 MG/2 ML VIAL ONE (12:39)
[2019-01-26] MEDS ORDERED: NA CHLORIDE 0.9% 100 ML IV ONE (12:39)
[2019-01-26 13:02] LABS: Absolute Lymphocytes (CBC) 1.6 K/uL (0.7-4.9); Basophils % 0.9 % (0-1.3); Hematocrit 38.3 % (36.0-45.0); Lymphocytes % 29.4 % (15.3-44.8); MPV 9.1 fL (7.6-11.3); RBC Red Blood Cell Count 3.64 M/uL (3.86-4.86)
[2019-01-26 13:19] LABS: Albumin 4.5 g/dL (3.4-5.0); Bilirubin Direct 0.3 mg/dL (0-0.2); Bilirubin Total 0.6 mg/dL (0.2-1.0); Potassium 3.2 mmol/L (3.5-5.1); Protein, Total 7.5 g/dL (6.4-8.2)
[2019-01-26] MEDS ORDERED: HALOPERIDOL LACT 5 MG/ML INJ ONE (13:27)
--- NOTE | 2019-01-26 14:03 | ER ---
Nurse's Notes [facility] Name: Pratibha Howard Age: 43 yrs Sex: Female : 1975 Arrival Date: 01/26/2019 Time: 10:30 Bed 6 Private MD: Diagnosis: Cannabaniod Hyperemesis Syndrome;Gastroparesis Presentation: 01/26 10:35 Presenting complaint: Patient states: abd pain, N/V, since Saturday cant keep even la1 liquids down, denies diarrhea. Transition of care: patient was not received from another setting of care. Onset of symptoms was January 26, 2019. Risk Assessment: Do you want to hurt yourself or someone else? Patient reports no desire to harm self or others. Initial Sepsis Screen: Does the patient meet any 2 criteria? No. Patient's initial sepsis screen is negative. Does the patient have a suspected source of infection? No. Patient's initial sepsis screen is negative. Care prior to arrival: None. 10:35 Method Of Arrival: Ambulatory la1 10:35 Acuity: RAFA 3 la1 Triage Assessment: 11:45 General: Appears in no apparent distress. Behavior is calm, cooperative, agitated. tw2 Pain: Complains of pain in abdomen. GI: Reports nausea, vomiting. 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 - Social history:: Smoking status: Patient/guardian denies using tobacco. - Ebola Screening: : No symptoms or risks identified at this time. Screenin:44 Abuse screen: Denies threats or abuse. Nutritional screening: No deficits noted. tw2 Tuberculosis screening: No symptoms or risk factors identified. Fall Risk None identified. Assessment: 11:55 Reassessment: provider at bedside at this time. tw2 12:06 General: Appears in no apparent distress. Behavior is calm, cooperative, appropriate tw2 for age. Neuro: Level of Consciousness is awake, alert, obeys commands, Oriented to person, place, time, situation. Cardiovascular: Heart tones S1 S2 Capillary refill < 3 seconds Patient's skin is warm and dry. Respiratory: Airway is patent Respiratory effort is even, unlabored, Respiratory pattern is regular, symmetrical, Breath sounds are clear bilaterally. GI: Abdomen is flat, Bowel sounds present X 4 quads. Reports intolerance of fluids, intolerance of food, nausea, vomiting. : No signs and/or symptoms were reported regarding the genitourinary system. EENT: No signs and/or symptoms were reported regarding the EENT system. Derm: No signs and/or symptoms reported regarding the dermatologic system. Musculoskeletal: Range of motion: intact in all extremities. 12:40 Reassessment: Pt c/o nausea and is actively vomiting, ERD notified, see MAR for orders. jl7 13:40 Reassessment: Patient appears in no apparent distress at this time. Patient and/or jl7 family updated on plan of care and expected duration. Pain level reassessed. Patient is alert, oriented x 3, equal unlabored respirations, skin warm/dry/pink. Patient states feeling better. Patient states symptoms have improved. Vital Signs: 10:36 BP 110 / 63; Pulse 87; Resp 14; Temp 98.3; Pulse Ox 100% on R/A; Weight 74.84 kg; la1 Height 5 ft. 0 in. (152.40 cm); 12:06 BP 95 / 36; Pulse 74; Resp 17; Pulse Ox 99% on R/A; tw2 13:21 BP 95 / 59; Pulse 69; Resp 17; Pulse Ox 100% on R/A; tw2 10:36 Body Mass Index 32.22 (74.84 kg, 152.40 cm) la1 ED Course: 10:30 Patient arrived in ED. as 10:35 Triage completed. la1 10:36 Arm band placed on right wrist. la1 11:44 Meme Richardson RN is Primary Nurse. tw2 11:44 Bed in low position. Call light in reach. tw2 11:49 Mario Land MD is Attending Physician. ps1 12:03 Awaiting: PO Reglan from pharmacy at this time. tw2 12:40 Inserted saline lock: 22 gauge in left antecubital area, using aseptic technique. Blood tw2 collected. 14:09 No provider procedures requiring assistance completed. IV discontinued, intact, tw2 bleeding controlled, No redness/swelling at site. Pressure dressing applied. Administered Medications: 12:18 Drug: Reglan 10 mg Route: PO; tw2 13:25 Follow up: Response: No adverse reaction tw2 12:18 Drug: Bentyl 10 mg Route: PO; tw2 13:25 Follow up: Response: No adverse reaction; No change in condition tw2 12:41 Drug: Reglan 10 mg Route: IVP; Site: left antecubital; jl7 13:25 Follow up: Response: No adverse reaction tw2 12:43 Drug: Zofran 4 mg Route: IVP; Site: left antecubital; jl7 13:25 Follow up: Response: No adverse reaction; Nausea is decreased tw2 13:27 Drug: HALdol 2.5 mg Route: IVP; Site: left antecubital; tw2 14:00 Follow up: Response: No adverse reaction; Marked relief of symptoms tw2 Outcome: 14:02 Discharge ordered by . ps1 14:10 Discharged to home ambulatory. tw2 14:10 Condition: stable 14:10 Discharge instructions given to patient, Instructed on discharge instructions, follow up and referral plans. medication usage, Demonstrated understanding of instructions, follow-up care, medications, Prescriptions given X 1. 14:10 Patient left the ED. tw2 Signatures: Miguelina Lewis Lee RN RN la1 Meme Richardson RN RN tw2 Bill Amos RN RN jl7 Mario Land MD MD ps1 Corrections: (The following items were deleted from the chart) 12:04 12:03 Awaiting: Reglan from pharmacy at this time. tw2 tw2
--- NOTE | 2019-01-26 14:03 | EDPHYS ---
Physician Documentation [facility] Name: Pratibha Howard Age: 43 yrs Sex: Female : 1975 Arrival Date: 01/26/2019 Time: 10:30 Bed 6 Private MD: ED Physician Mario Land HPI: 01/26 13:55 This 43 yrs old Female presents to ER via Ambulatory with complaints of ps1 Vomiting. 13:55 patient has a history of gastroparesis and cyclical vomiting. Patient states that she ps1 uses marijuana for anxiety and appetite stimulation. States that she only smokes high potency marijuana via bong. No medications for her symptoms other than Carafate. Has associated abdominal cramping. . OUTSIDE CUTTER: 10:36 LMP 01/21/2019 la1 Historical: - Allergies: 10:35 PENICILLINS; la1 10:35 Trazodone; la1 - Home Meds: 11:45 Zyprexa 20 mg Oral tab 1 tab once daily [Active]; Vraylar Oral [Active]; Topamax 50 mg tw2 Oral tab 1 tab 2 times per day [Active]; Klonopin 1 mg Oral tab 1 tab 3 times per day [Active]; Benadryl 25 mg Oral cap 1 cap every 4 hours [Active]; Amantadine Oral [Active]; - PMHx: 10:35 Anxiety; Bipolar disorder; Hypothyroidism; gastroparesis; la1 - PSHx: 11:45 None; tw2 - Immunization history:: Adult Immunizations up to date. - Social history:: Smoking status: Patient/guardian denies using tobacco. - Ebola Screening: : No symptoms or risks identified at this time. ROS: 13:55 Constitutional: Negative for fever, chills, and weight loss, Eyes: Negative for injury, ps1 pain, redness, and discharge, Cardiovascular: Negative for chest pain, palpitations, and edema, Respiratory: Negative for shortness of breath, cough, wheezing, and pleuritic chest pain, MS/Extremity: Negative for injury and deformity, Skin: Negative for injury, rash, and discoloration, Neuro: Negative for headache, weakness, numbness, tingling, and seizure. 13:55 Abdomen/GI: Positive for nausea and vomiting, abdominal cramps. Exam: 13:55 Constitutional: This is a well developed, well nourished patient who is awake, alert, ps1 and in no acute distress. Head/Face: Normocephalic, atraumatic. Chest/axilla: Normal chest wall appearance and motion. Nontender with no deformity. No lesions are appreciated. Cardiovascular: Regular rate and rhythm. No gallops, murmurs, or rubs. Normal PMI, no JVD. No pulse deficits. Respiratory: Lungs have equal breath sounds bilaterally, clear to auscultation and percussion. No rales, rhonchi or wheezes noted. No increased work of breathing, no retractions or nasal flaring. Abdomen/GI: Soft, non-tender, with normal bowel sounds. No distension or tympany. No guarding or rebound. No evidence of tenderness throughout. MS/ Extremity: Pulses equal, no cyanosis. Neurovascular intact. Full, normal range of motion. Neuro: Awake and alert, GCS 15, oriented to person, place, time, and situation. Cranial nerves II-XII grossly intact. Sensory grossly intact. Psych: Awake, alert, with orientation to person, place and time. Behavior, mood, and affect are within normal limits. Vital Signs: 10:36 BP 110 / 63; Pulse 87; Resp 14; Temp 98.3; Pulse Ox 100% on R/A; Weight 74.84 kg; la1 Height 5 ft. 0 in. (152.40 cm); 12:06 BP 95 / 36; Pulse 74; Resp 17; Pulse Ox 99% on R/A; tw2 13:21 BP 95 / 59; Pulse 69; Resp 17; Pulse Ox 100% on R/A; tw2 10:36 Body Mass Index 32.22 (74.84 kg, 152.40 cm) la1 MDM: 12:23 Patient medically screened. ps1 13:55 Differential diagnosis: Nonspecific abd pain, gastritis, gastroenteritis, ps1 gastroparesis, cyclical vomiting, marijuana induced hyperemesis. Data reviewed: vital signs, nurses notes, lab test result(s), and as a result, I will discharge patient. Counseling: I had a detailed discussion with the patient and/or guardian regarding: the historical points, exam findings, and any diagnostic results supporting the discharge/admit diagnosis, lab results, the need for outpatient follow up, decrease potency and frequency of marijuana use. Home with [facility]. EPS symptoms and precautions given. Stable for discharge. Take potassium enriched food. Follow up with PCP for reevaluation. K likely low 2/2 vomiting. Improved s/p haldol IV. . 01/26 12:41 Order name: Basic Metabolic Panel; Complete Time: 13:34 [facility] 01/26 12:41 Order name: CBC with Diff; Complete Time: 13:12 [facility] 01/26 12:41 Order name: Creatinine for Radiology; Complete Time: 13:34 [facility] 01/26 12:41 Order name: Hepatic Function; Complete Time: 13:34 [facility] 01/26 12:41 Order name: Lipase; Complete Time: 13:34 [facility] 01/26 12:41 Order name: IV Saline Lock; Complete Time: 13:33 [facility] 01/26 12:41 Order name: Labs collected and sent; Complete Time: 13:34 [facility] Administered Medications: 12:18 Drug: Reglan 10 mg Route: PO; tw2 13:25 Follow up: Response: No adverse reaction tw2 12:18 Drug: Bentyl 10 mg Route: PO; tw2 13:25 Follow up: Response: No adverse reaction; No change in condition tw2 12:41 Drug: Reglan 10 mg Route: IVP; Site: left antecubital; jl7 13:25 Follow up: Response: No adverse reaction tw2 12:43 Drug: Zofran 4 mg Route: IVP; Site: left antecubital; jl7 13:25 Follow up: Response: No adverse reaction; Nausea is decreased tw2 13:27 Drug: HALdol 2.5 mg Route: IVP; Site: left antecubital; tw2 14:00 Follow up: Response: No adverse reaction; Marked relief of symptoms tw2 Disposition: 01/26/19 14:02 Discharged to Home. Impression: Cannabaniod Hyperemesis Syndrome, Gastroparesis. - Condition is Stable. - Discharge Instructions: Cannabis Use Disorder. - Prescriptions for Reglan 10 mg Oral Tablet - take 1 tablet by ORAL route every 6 hours . take 30 minutes before meals and at bedtime; 100 tablet. - Medication Reconciliation Form, Thank You Letter, Antibiotic Education, Prescription Opioid Use form. - Follow up: Private Physician; When: As needed; Reason: Recheck today's complaints, Continuance of care, Re-evaluation by your physician. Follow up: Emergency Department; When: As needed; Reason: Worsening of condition. - Problem is new. - Symptoms have improved. Signatures: Dispatcher [employer] EDMS Manan Rome RN RN la1 Meme Richardson RN RN tw2 Bill Amos RN RN jl7 Mario Land MD MD ps1 Corrections: (The following items were deleted from the chart) 14:10 14:02 01/26/2019 14:02 Discharged to Home. Impression: Cannabaniod Hyperemesis tw2 Syndrome; Gastroparesis. Condition is Stable. Forms are Medication Reconciliation Form, Thank You Letter, Antibiotic Education, Prescription Opioid Use. Follow up: Private Physician; When: As needed; Reason: Recheck today's complaints, Continuance of care, Re-evaluation by your physician. Follow up: Emergency Department; When: As needed; Reason: Worsening of condition. Problem is new. Symptoms have improved. ps1
[2019-01-26 16:53] VITALS: TEMP 98.3
[2019-01-26 16:56] VITALS: BP 95/59; O2SAT 100
== END 2019-01-26 14:10 | disposition home or self-care (01) ==
LOC: ER 10:21
DX: F12.188 Cannabis abuse with other cannabis-induced disorder (principal); K31.84 Gastroparesis; F31.9 Bipolar disorder, unspecified; E03.9 Hypothyroidism, unspecified
CPT/HCPCS: 85025; 80048; 36415; 80076; 83690; 96375; 96374; 99284; J1630; J2765; J2405

== ENCOUNTER 2019-01-31 06:01 | Inpatient (IN) | payer OTHER ==
[2019-01-31] MEDS ORDERED: PROMETHAZINE 25 MG/ML VIAL ONE ×2 (06:23→08:29)
[2019-01-31] MEDS ORDERED: NA CHLORIDE 0.9% 1,000 ML ONE (06:23)
[2019-01-31 06:32] LABS: Absolute Lymphocytes (CBC) 1.7 K/uL (0.7-4.9); Basophils % 0.9 % (0-1.3); Hematocrit 39.9 % (36.0-45.0); Lymphocytes % 24.9 % (15.3-44.8); MPV 9.2 fL (7.6-11.3); RBC Red Blood Cell Count 3.86 M/uL (3.86-4.86)
[2019-01-31 06:56] LABS: Albumin 4.2 g/dL (3.4-5.0); Bilirubin Direct 0.2 mg/dL (0-0.2); Bilirubin Total 0.7 mg/dL (0.2-1.0)
[2019-01-31] MEDS ORDERED: MORPHINE 4 MG/ML SYR ONE (06:56)
[2019-01-31 06:57] LABS: Potassium 2.9 mmol/L (3.5-5.1)
[2019-01-31] MEDS ORDERED: KCL 20 MEQ/100 mL IVPB 20 MEQ/100 ML BAG IV ONE (07:16)
--- NOTE | 2019-01-31 07:28 | RAD REPORT ---
EXAM DESCRIPTION: CT - Abdomen Pelvis W Contrast - 01/31/2019 7:14 am CLINICAL HISTORY: Abdominal pain COMPARISON: none. TECHNIQUE: Computed axial tomography of the abdomen pelvis was obtained. 100 cc Isovue-300 was admin istered intravenously. Oral contrast was not requested which limits evaluation of bowel. All CT scans are performed using dose optimization technique as appropriate and may include automated exposure control or mA/KV adjustment according to patient size. FINDINGS: The liver, spleen, pancreas, adrenal and left kidney appear unremarkable. Two tiny nonobstructing right renal calculus There is no evidence of diverticulitis. . Normal appendix Fluid is present within small bowel. IMPRESSION: Fluid is present within small bowel. This may indicate an enteritis
[2019-01-31 07:30] LABS: Urine Blood NEGATIVE (NEG); Urine Glucose NEGATIVE (NEG); Urine Protein 1+ (NEG); Urine Specific Gravity 1.015 (1.005-1.030); Urine pH 8.5 (5.0-7.0)
--- NOTE | 2019-01-31 09:41 | ER ---
Nurse's Notes [facility] Name: Pratibha Howard Age: 43 yrs Sex: Female : 1975 Arrival Date: 01/31/2019 Time: 06:02 Bed 7 Private MD: Diagnosis: Vomiting;Noninfective gastroenteritis and colitis, unspecified;Hypokalemia Presentation: 01/31 06:12 Presenting complaint: Patient states: "I have been throwing up since about midnight jd3 today. I am having bad abdominal pain with nausea and vomiting. I was recently seen here for a similar problem and if feels very similar called gastroparesis. I last took ODT Zofran at 0400. ". Transition of care: patient was not received from another setting of care. Onset of symptoms was January 31, 2019. Risk Assessment: Do you want to hurt yourself or someone else? Patient reports no desire to harm self or others. Initial Sepsis Screen: Does the patient meet any 2 criteria? No. Patient's initial sepsis screen is negative. Does the patient have a suspected source of infection? No. Patient's initial sepsis screen is negative. Care prior to arrival: None. 06:12 Method Of Arrival: Ambulatory jd3 06:12 Acuity: RAFA 3 jd3 DISABILITY INSURANCE CLAIM EXAMINER: 06:18 LMP 01/14/2019 jd3 Historical: - Allergies: 06:18 PENICILLINS; jd3 06:18 Trazodone; jd3 - Home Meds: 06:18 Klonopin 1 mg Oral tab 1 tab 3 times per day [Active]; Topamax 50 mg Oral tab 1 tab 2 jd3 times per day [Active]; Seroquel Oral [Active]; Cogentin injection injection [Active]; - PMHx: 06:18 Anxiety; Bipolar disorder; Gastroparesis; Hypothyroidism; jd3 - PSHx: 06:18 None; jd3 - Immunization history:: Adult Immunizations up to date. - Social history:: Smoking status: Patient uses tobacco products, smokes one-half pack cigarettes per day. - Ebola Screening: : Patient negative for fever greater than or equal to 101.5 degrees Fahrenheit, and additional compatible Ebola Virus Disease symptoms. Screenin:31 Abuse screen: Denies threats or abuse. Nutritional screening: No deficits noted. jd3 Tuberculosis screening: No symptoms or risk factors identified. Fall Risk IV access (20 points). Ambulatory Aid- None/Bed Rest/Nurse Assist (0 pts). Gait- Normal/Bed Rest/Wheelchair (0 pts) Mental Status- Oriented to own ability (0 pts). Total Ramos Fall Scale indicates No Risk (0-24 pts). Assessment: 06:15 General: Appears in no apparent distress. uncomfortable, Behavior is calm, cooperative, jd3 appropriate for age. Pain: Complains of pain in epigastric area Quality of pain is described as sharp, tender. Neuro: Level of Consciousness is awake, alert, obeys commands, Oriented to person, place, time, situation. Cardiovascular: Denies chest pain, Capillary refill < 3 seconds Patient's skin is warm and dry. Respiratory: Airway is patent Respiratory effort is even, unlabored, Respiratory pattern is regular, symmetrical, Denies cough, shortness of breath. GI: Abdomen is round non-distended, Bowel sounds present X 4 quads. Abd is soft X 4 quads Abdomen is tender to palpation in right upper quadrant and left upper quadrant Reports upper abdominal pain, diarrhea, nausea, vomiting. : No signs and/or symptoms were reported regarding the genitourinary system. EENT: No signs and/or symptoms were reported regarding the EENT system. Derm: Skin is intact, Skin is dry, Skin is normal, Skin temperature is warm. Musculoskeletal: Circulation, motion, and sensation intact. Range of motion: intact in all extremities. 07:00 Reassessment: RECD REPORT FROM EMELI LUDWIG. 43YO WF P/W NAUSEA AND VOMITING, CT PENDING.bp 07:10 Reassessment: PT TO CT. bp 07:20 Reassessment: PT RETURNED FROM CT. bp 08:31 Reassessment: NO EMESIS, PT STATES NAUSEA. PROVIDER AWARE. bp 10:04 Reassessment: PT STATES NO RELIEF OF S/S. ADMIT IN PROCESS. bp Vital Signs: 06:18 BP 91 / 66; Pulse 72; Resp 18 S; Temp 98.2(O); Pulse Ox 99% on R/A; Weight 74.84 kg jd3 (R); Height 5 ft. 0 in. (152.40 cm) (R); Pain 8/10; 07:00 BP 90 / 54; Pulse 71; Resp 16; Pulse Ox 96% ; bp 07:23 BP 101 / 66; Pulse 63; Resp 14; Pulse Ox 100% ; bp 08:23 BP 113 / 50; Pulse 88; Resp 16; Pulse Ox 100% ; bp 10:03 BP 99 / 60; Pulse 66; Resp 15; Pulse Ox 100% ; bp 10:50 BP 102 / 66; Pulse 66; Resp 15; Temp 98.2; Pulse Ox 100% on R/A; sg 06:18 Body Mass Index 32.22 (74.84 kg, 152.40 cm) jd3 ED Course: 06:02 Patient arrived in ED. ds1 06:11 [facility] nh 06:11 Ildefonso Wilks MD is Attending Physician. nh 06:12 Akira Falk, OZIEL is Primary Nurse. jd3 06:16 Triage completed. jd3 06:19 Arm band placed on. jd3 06:25 Inserted saline lock: 22 gauge in left antecubital area, using aseptic technique. Blood lp1 collected. 06:32 Patient has correct armband on for positive identification. Bed in low position. Call jd3 light in reach. Side rails up X 1. Adult w/ patient. 07:03 Radiology exam delayed due to test not completed at this time. vm2 07:14 CT Abd/Pelvis - IV Contrast Only In Process Unspecified. EDMS 07:15 CT completed. Patient tolerated procedure well. Patient moved back from CT. mw3 08:21 Creatinine (Radiology Only) Sent. bp 09:39 Ildefonso Wilks MD is Hospitalizing Provider. nh 09:39 Alex Briceño MD is Hospitalizing Provider. nh 10:51 No provider procedures requiring assistance completed. Patient admitted, IV remains in sg place. intact, No redness/swelling at site. Administered Medications: 06:28 Drug: Promethazine 12.5 mg Route: IVP; Site: left antecubital; jd3 07:22 Follow up: Response: Nausea is decreased bp 06:28 Drug: NS 0.9% 1000 ml Route: IV; Rate: 1 bolus; Site: left antecubital; jd3 06:58 Drug: morphine 4 mg Route: IVP; Site: left antecubital; jd3 07:22 Follow up: Response: Pain is decreased bp 07:20 Drug: Potassium Chloride 20 mEq Route: IV; Rate: calculated rate; Site: left bp antecubital; 09:20 Follow up: Response: No adverse reaction; Pain is decreased; IV Status: Completed sg infusion 08:30 Drug: Phenergan 12.5 mg Route: IVP; Site: left antecubital; bp 08:49 Follow up: Response: Nausea is decreased bp Outcome: 09:40 Decision to Hospitalize by Provider. dc 10:50 Admitted to Tele accompanied by tech, family with patient, via wheelchair, room 422, with chart, Report called to Chance LUDWIG 10:50 Condition: stable 10:50 Instructed on the need for admit, safety practices, Demonstrated understanding of instructions. 10:57 Patient left the ED. bp Signatures: Dispatcher [employer] EDHenry Marroquin RN RN sg Cele Levine, AIR EXPORT AGENT AIR EXPORT AGENT Daysi Ellis ds1 Isidra Donahue RN RN lp1 Selena Marquez 2 Akira Falk RN RN jd3 Peltier, Brian, RN RN bp Gabriella Sales mw3
--- NOTE | 2019-01-31 09:42 | EDPHYS ---
Physician Documentation [facility] Name: Pratibha Howard Age: 43 yrs Sex: Female : 1975 Arrival Date: 01/31/2019 Time: 06:02 Bed 7 Private MD: ED Physician Ildefonso Wilks HPI: 01/31 09:36 This 43 yrs old Female presents to ER via Ambulatory with complaints of nh Nausea/Vomiting. 09:36 The patient presents to the emergency department with nausea, vomiting, abdominal pain. nh Onset: The symptoms/episode began/occurred yesterday. Possible causes: flare up of bowel problem, gastroparesis. The symptoms are aggravated by food , The symptoms are alleviated by nothing. Associated signs and symptoms: The patient has no apparent associated signs or symptoms. Severity of symptoms: At their worst the symptoms were moderate just prior to arrival, in the emergency department the symptoms are unchanged. The patient has not experienced similar symptoms in the past. The patient has not recently seen a physician. SECTION GANG: 06:18 LMP 01/14/2019 jd3 Historical: - Allergies: 06:18 PENICILLINS; jd3 06:18 Trazodone; jd3 - Home Meds: 06:18 Klonopin 1 mg Oral tab 1 tab 3 times per day [Active]; Topamax 50 mg Oral tab 1 tab 2 jd3 times per day [Active]; Seroquel Oral [Active]; Cogentin injection injection [Active]; - PMHx: 06:18 Anxiety; Bipolar disorder; Gastroparesis; Hypothyroidism; jd3 - PSHx: 06:18 None; jd3 - Immunization history:: Adult Immunizations up to date. - Social history:: Smoking status: Patient uses tobacco products, smokes one-half pack cigarettes per day. - Ebola Screening: : Patient negative for fever greater than or equal to 101.5 degrees Fahrenheit, and additional compatible Ebola Virus Disease symptoms. ROS: 09:36 Constitutional: Negative for fever, chills, and weight loss, Eyes: Negative for injury, nh pain, redness, and discharge, ENT: Negative for injury, pain, and discharge, Neck: Negative for injury, pain, and swelling, Cardiovascular: Negative for chest pain, palpitations, and edema, Abdomen/GI: Negative for abdominal pain, nausea, vomiting, diarrhea, and constipation, Back: Negative for injury and pain, : Negative for injury, bleeding, discharge, and swelling, MS/Extremity: Negative for injury and deformity, Skin: Negative for injury, rash, and discoloration, Neuro: Negative for headache, weakness, numbness, tingling, and seizure, Psych: Negative for depression, anxiety, suicide ideation, homicidal ideation, and hallucinations, Allergy/Immunology: Negative for hives, rash, and allergies, Endocrine: Negative for neck swelling, polydipsia, polyuria, polyphagia, and marked weight changes, Hematologic/Lymphatic: Negative for swollen nodes, abnormal bleeding, and unusual bruising. 09:36 Respiratory: 09:36 Abdomen/GI: Positive for abdominal pain, nausea and vomiting. Exam: 09:36 Constitutional: This is a well developed, well nourished patient who is awake, alert, nh and in no acute distress. Head/Face: Normocephalic, atraumatic. Eyes: Pupils equal round and reactive to light, extra-ocular motions intact. Lids and lashes normal. Conjunctiva and sclera are non-icteric and not injected. Cornea within normal limits. Periorbital areas with no swelling, redness, or edema. ENT: Nares patent. No nasal discharge, no septal abnormalities noted. Tympanic membranes are normal and external auditory canals are clear. Oropharynx with no redness, swelling, or masses, exudates, or evidence of obstruction, uvula midline. Mucous membranes moist. Neck: Trachea midline, no thyromegaly or masses palpated, and no cervical lymphadenopathy. Supple, full range of motion without nuchal rigidity, or vertebral point tenderness. No Meningismus. Chest/axilla: Normal chest wall appearance and motion. Nontender with no deformity. No lesions are appreciated. Cardiovascular: Regular rate and rhythm with a normal S1 and S2. No gallops, murmurs, or rubs. Normal PMI, no JVD. No pulse deficits. Respiratory: Lungs have equal breath sounds bilaterally, clear to auscultation and percussion. No rales, rhonchi or wheezes noted. No increased work of breathing, no retractions or nasal flaring. Back: No spinal tenderness. No costovertebral tenderness. Full range of motion. Skin: Warm, dry with normal turgor. Normal color with no rashes, no lesions, and no evidence of cellulitis. MS/ Extremity: Pulses equal, no cyanosis. Neurovascular intact. Full, normal range of motion. Neuro: Awake and alert, GCS 15, oriented to person, place, time, and situation. Cranial nerves II-XII grossly intact. Motor strength 5/5 in all extremities. Sensory grossly intact. Cerebellar exam normal. Normal gait. 09:36 Abdomen/GI: Inspection: abdomen appears normal, Bowel sounds: normal, Palpation: mild abdominal tenderness, in all quadrants. Vital Signs: 06:18 BP 91 / 66; Pulse 72; Resp 18 S; Temp 98.2(O); Pulse Ox 99% on R/A; Weight 74.84 kg jd3 (R); Height 5 ft. 0 in. (152.40 cm) (R); Pain 8/10; 07:00 BP 90 / 54; Pulse 71; Resp 16; Pulse Ox 96% ; bp 07:23 BP 101 / 66; Pulse 63; Resp 14; Pulse Ox 100% ; bp 08:23 BP 113 / 50; Pulse 88; Resp 16; Pulse Ox 100% ; bp 10:03 BP 99 / 60; Pulse 66; Resp 15; Pulse Ox 100% ; bp 10:50 BP 102 / 66; Pulse 66; Resp 15; Temp 98.2; Pulse Ox 100% on R/A; sg 06:18 Body Mass Index 32.22 (74.84 kg, 152.40 cm) jd3 MDM: 06:11 Patient medically screened. pa 09:36 Data reviewed: vital signs, nurses notes, lab test result(s), radiologic studies, I pa have discussed the patient's presentation/case with the attending Emergency Department Physician; and as a result, I will admit patient. Counseling: I had a detailed discussion with the patient and/or guardian regarding: the historical points, exam findings, and any diagnostic results supporting the discharge/admit diagnosis, lab results, radiology results, the need for further work-up and treatment in the hospital. Physician consultation: Alireza Briceño MD was called at 09:39, was contacted at 09:39, regarding admission, and will see patient in inpatient room. 01/31 06:15 Order name: Basic Metabolic Panel; Complete Time: 07:22 pa 01/31 06:15 Order name: CBC with Diff pa 01/31 06:15 Order name: Creatinine for Radiology pa 01/31 06:15 Order name: Hepatic Function; Complete Time: 07:22 pa 01/31 06:15 Order name: Lipase; Complete Time: 07:22 pa 01/31 06:38 Order name: CBC with Automated Diff; Complete Time: 06:46 EDDC 01/31 06:15 Order name: CT Abd/Pelvis - IV Contrast Only; Complete Time: 07:30 pa 01/31 06:46 Order name: Creatinine (Radiology Only) EDDC 01/31 07:05 Order name: Urine Dipstick--Ancillary (enter results); Complete Time: 07:32 eb 01/31 07:05 Order name: Urine --Ancillary (enter results); Complete Time: 07:32 01/31 09:38 Order name: CBC with Automated Diff EDDC 01/31 09:38 Order name: Comprehensive Metabolic Panel [facility] 01/31 09:38 Order name: Comprehensive Metabolic Panel [facility] 01/31 06:15 Order name: IV Saline Lock; Complete Time: 06:28 pa 01/31 06:15 Order name: Labs collected and sent; Complete Time: 06:28 pa 01/31 06:15 Order name: Urine Dipstick-Ancillary (obtain specimen); Complete Time: 07:04 pa 01/31 07:33 Order name: PO challenge; Complete Time: 08:21 pa 01/31 09:38 Order name: CONS Pharmacy Consult [facility] 01/31 09:38 Order name: Clear Liquid EDDC Administered Medications: 06:28 Drug: Promethazine 12.5 mg Route: IVP; Site: left antecubital; jd3 07:22 Follow up: Response: Nausea is decreased bp 06:28 Drug: NS 0.9% 1000 ml Route: IV; Rate: 1 bolus; Site: left antecubital; jd3 06:58 Drug: morphine 4 mg Route: IVP; Site: left antecubital; jd3 07:22 Follow up: Response: Pain is decreased bp 07:20 Drug: Potassium Chloride 20 mEq Route: IV; Rate: calculated rate; Site: left bp antecubital; 09:20 Follow up: Response: No adverse reaction; Pain is decreased; IV Status: Completed sg infusion 08:30 Drug: Phenergan 12.5 mg Route: IVP; Site: left antecubital; bp 08:49 Follow up: Response: Nausea is decreased bp Disposition: 01/31/19 09:40 Hospitalization ordered by Alex Briceño for Observation. Preliminary diagnosis are Vomiting, Noninfective gastroenteritis and colitis, unspecified, Hypokalemia. - Bed requested for Telemetry/MedSurg (observation). - Status is Observation. bp - Condition is Stable. - Problem is new. - Symptoms are unchanged. UTI on Admission? No Addendum: 02/02/2019 10:45 Co-signature as Attending Physician, Ildefonso Wilks MD I agree with the assessment and c philippe plan of care. Signatures: Dispatcher [employer] EDDC Ildefonso Wilks MD MD cha Hodges, Niki, TAR HEATER TAR HEATER pa kAira Falk, RN RN jEfrain Schrader RN RN Sarah Pearson Steven RN sg Corrections: (The following items were deleted from the chart) 01/31 10:47 09:40 Hospitalization Ordered by Alex Briceño MD for Observation. Preliminary eb diagnosis is Vomiting; Noninfective gastroenteritis and colitis, unspecified; Hypokalemia. Bed requested for Telemetry/MedSurg (observation). Status is Observation. Condition is Stable. Problem is new. Symptoms are unchanged. UTI on Admission? No. pa 10:57 10:47 01/31/2019 09:40 Hospitalization Ordered by Alex Briceño MD for Observation. bp Preliminary diagnosis is Vomiting; Noninfective gastroenteritis and colitis, unspecified; Hypokalemia. Bed requested for Telemetry/MedSurg (observation). Status is Observation. Condition is Stable. Problem is new. Symptoms are unchanged. UTI on Admission? No. eb
[2019-01-31] MEDS ORDERED: METOCLOPRAMIDE 10 MG/2mL INJ IV PRN (11:49)
[2019-01-31] MEDS ORDERED: TRAMADOL HCL 50 MG TAB PO PRN (11:49)
[2019-01-31] MEDS ORDERED: SODIUM CHLORIDE 0.9% 10ML INJ IV PRN (11:50)
--- NOTE | 2019-01-31 11:51 | P.HP ---
Certification for Inpatient Patient admitted to: Observation With expected LOS: <2 Midnights Practitioner: I am a practitioner with admitting privileges, knowledge of patient current condition, hospital course, and medical plan of care. Services: Services provided to patient in accordance with Admission requirements found in Title 42 Section 412.3 of the Code of Federal Regulations Patient History Date of Service: 01/31/19 (Hospitalist) Reason for admission: Nausea vomiting hypokalemia History of Present Illness: Patient is 43 years of age with a history of gastric paresis has had nausea vomiting for the past 2 months was seen by GI in [place]. She was prescribed Carafate and has been taking 800 mg of Motrin a day apparently she also has peptic ulcer disease complaining of some abdominal discomfort Allergies Penicillins Adverse Reaction (Intermediate, Verified 04/16/12 02:57) Hives/Rash codeine [Codeine] Adverse Reaction (Verified 04/16/12 02:57) Nausea/Vomiting trazodone HCl [From Desyrel] Adverse Reaction (Verified 04/16/12 02:59) Nausea/Vomiting Hydrocodone-Acetam Allergy (Uncoded 09/19/17 13:15) Unknown Home Medications: Ibuprofen 400 mg PO Q8HP PRN 04/16/12 Quetiapine Fumarate [Seroquel] 200 mg PO BEDTIME PRN 04/16/12 Amantadine HCl [Amantadine] 400 mg PO BEDTIME 01/31/19 Benztropine Mesylate [Cogentin] 1 mg PO BEDTIME 01/31/19 Levothyroxine Sodium 25 mcg PO DAILY 01/31/19 Metoclopramide [Reglan] 10 mg PO TID 01/31/19 Omeprazole [Prilosec] 40 mg PO DAILY PRN 01/31/19 Sucralfate [Carafate] 1 gm PO AC 01/31/19 Topiramate [Topamax] 100 mg PO BEDTIME 01/31/19 clonazePAM [Clonazepam] 1 mg PO TID 01/31/19 - Past Medical/Surgical History -: Bipolar disease -: Peptic ulcer disease -: Gastroparesis -: Hypothyroidism Past Surgical History: Patient denies surgical history - Social History Alcohol use: No CD- Drugs: No Caffeine use: Yes Review of Systems 10-point ROS is otherwise unremarkable General: Weakness Gastrointestinal: Nausea, Vomiting, Abdominal Pain Physical Examination - Vital Signs Temperature: 98.3 F Blood Pressure: 110/83 Pulse: 87 Respirations: 14 Pulse Ox (%): 100 - Physical Exam General: Alert, In no apparent distress, Oriented x3 Neck: Supple Respiratory: Clear to auscultation bilaterally, Normal air movement Cardiovascular: No edema, Normal pulses, Regular rate/rhythm Gastrointestinal: Normal bowel sounds, Tenderness (Mild epigastric tenderness) - Studies Laboratory Data (last 24 hrs) 01/31/19 06:24: Creatinine 0.96 01/31/19 06:24: WBC 6.6 D, Hgb 14.0, Hct 39.9, Plt Count 279 01/31/19 06:24: Sodium 140, Potassium 2.9 L*, BUN 5 L, Creatinine 0.87, Glucose 89, Total Bilirubin 0.7, AST 22, ALT 28, Alkaline Phosphatase 113, Lipase 89 Assessment and Plan - Problems (Diagnosis) (1) Nausea & vomiting Current Visit: Yes Status: Acute Plan: Patient is 43 years of age admitted with nausea vomiting and some abdominal discomfort she was diagnosed with gastroparesis for the past 2 months status post EGD she does have a peptic ulcer has been taking 100 mg of Motrin for her abdominal discomfort patient has a history of bipolar disease hypokalemic admission precipitated by severe nausea and vomiting labs reviewed plan to admit IV fluids will try some Ultram avoid nonsteroidals PPI try some reglan - Advance Directives Does patient have a Living Will: No Does patient have a Durable POA for Healthcare: No
[2019-01-31] MEDS ORDERED: QUETIAPINE FUMARATE 200 MG PO PRN (11:52)
[2019-01-31] MEDS: PROMETHAZINE 25 MG/ML VIAL IV PRN ×2 (13:54→20:07)
[2019-01-31] MEDS: MORPHINE 4 MG/ML SYR IV PRN ×3 (13:54→22:39)
[2019-01-31] MEDS ORDERED: KCL 20 MEQ/100 mL IVPB 20 MEQ/100 ML BAG IV SCH (14:00)
[2019-01-31] MEDS: clonazePAM 1 MG TAB PO SCH ×2 (16:05→21:31)
[2019-01-31] MEDS: SUCRALFATE 1GM/10ML UCUP PO SCH (17:25)
[2019-01-31 19:55] VITALS: BMI 27.3
[2019-01-31] MEDS ORDERED: BENZTROPINE MESYLATE 1 MG PO SCH (21:00)
[2019-01-31] MEDS ORDERED: AMANTADINE HCL PO SCH (21:00)
[2019-01-31] MEDS: BENZTROPINE 1 MG TAB PO SCH (21:29)
[2019-01-31] MEDS: AMANTADINE 100 MG CAP PO SCH (21:29)
[2019-01-31] MEDS: TOPIRAMATE 100 MG TAB PO SCH (21:30)
[2019-01-31] MEDS: QUETIAPINE 100MG TAB PO PRN (21:30)
[2019-01-31] MEDS: KCL 20 MEQ/100 mL IVPB 20 MEQ/100 ML BAG IV SCH ×2 (21:31→23:29)
[2019-01-31] MEDS: ONDANSETRON 4 MG/2 ML VIAL IV PRN (22:40)
[2019-02-01] MEDS: NA CHLORIDE 0.9% 1,000 ML IV SCH ×3 (00:30→18:51)
[2019-02-01 05:11] LABS: Absolute Lymphocytes (CBC) 1.8 K/uL (0.7-4.9); Basophils % 0.7 % (0-1.3); Hematocrit 34.6 % (36.0-45.0); Lymphocytes % 42.6 % (15.3-44.8); MPV 9.5 fL (7.6-11.3); RBC Red Blood Cell Count 3.25 M/uL (3.86-4.86)
[2019-02-01 05:27] LABS: Albumin 3.1 g/dL (3.4-5.0); Bilirubin Total 0.3 mg/dL (0.2-1.0); Potassium 3.3 mmol/L (3.5-5.1); Protein, Total 5.3 g/dL (6.4-8.2)
[2019-02-01 05:32] LABS: Blood Morphology Comment NOTED (NOT SEEN); Macrocytosis 1+; Platelet Estimate ADEQ; Urine White Blood Cell Casts OK
[2019-02-01] MEDS: LEVOTHYROXINE SOD 0.025 MG TAB PO SCH (05:56)
[2019-02-01] MEDS: SUCRALFATE 1GM/10ML UCUP PO SCH ×3 (08:39→17:18)
[2019-02-01] MEDS: MORPHINE 4 MG/ML SYR IV PRN ×3 (08:44→20:04)
[2019-02-01] MEDS: PROMETHAZINE 25 MG/ML VIAL IV PRN ×3 (08:45→20:04)
[2019-02-01] MEDS: clonazePAM 1 MG TAB PO SCH ×3 (08:48→21:50)
[2019-02-01] MEDS: PANTOPRAZOLE 40 MG INJ IVP SCH (08:49)
--- NOTE | 2019-02-01 09:40 | P.PN ---
Subjective Date of Service: 02/01/19 Chief Complaint: Nausea vomiting hypokalemia No change still complaining of abdominal pain nausea no change Review of Systems General: Weakness Gastrointestinal: Nausea, Vomiting, Abdominal Pain Physical Examination - Vital Signs Temperature: 96.9 F Blood Pressure: 102/55 Pulse: 61 Respirations: 18 Pulse Ox (%): 96 - Physical Exam General: Alert, Moderate distress Neck: Supple Cardiovascular: No edema, Regular rate/rhythm Gastrointestinal: Tenderness (Mild epigastric tenderness) Assessment & Plan - Problems (Diagnosis) (1) Nausea & vomiting Current Visit: Yes Status: Acute Plan: Patient admitted with gastroparesis nausea vomiting still has epigastric discomfort EGD done 1 2 months ago patient has been taking Motrin possible peptic ulcer disease she is on PPI and continues to be symptomatic CT scan of the abdomen shows some fluid in the small bowel no clinical evidence of sepsis continue with present treatment GI consult
[2019-02-01] MEDS: METOCLOPRAMIDE 10 MG/2mL INJ IV SCH ×2 (10:00→17:18)
[2019-02-01] MEDS: BENZTROPINE 1 MG TAB PO SCH (21:49)
[2019-02-01] MEDS: AMANTADINE 100 MG CAP PO SCH (21:49)
[2019-02-01] MEDS: TOPIRAMATE 100 MG TAB PO SCH (21:50)
[2019-02-01] MEDS: QUETIAPINE 100MG TAB PO PRN (21:53)
[2019-02-02] MEDS: METOCLOPRAMIDE 10 MG/2mL INJ IV SCH ×3 (01:38→18:02)
[2019-02-02 04:23] LABS: Potassium 3.4 mmol/L (3.5-5.1)
[2019-02-02] MEDS: LEVOTHYROXINE SOD 0.025 MG TAB PO SCH (05:43)
[2019-02-02] MEDS: KCL 20 MEQ/100 mL IVPB 20 MEQ/100 ML BAG IV SCH ×2 (05:44→08:00)
[2019-02-02] MEDS: MORPHINE 4 MG/ML SYR IV PRN ×4 (05:56→18:16)
[2019-02-02] MEDS: ONDANSETRON 4 MG/2 ML VIAL IV PRN (05:57)
[2019-02-02] MEDS ORDERED: POTASSIUM CL 40 MEQ in NA CHLORIDE 0.9% 500 ML IV SCH (06:00)
[2019-02-02] MEDS: NA CHLORIDE 0.9% 1,000 ML IV SCH ×2 (07:27→20:52)
[2019-02-02] MEDS: SUCRALFATE 1GM/10ML UCUP PO SCH ×3 (07:27→16:32)
[2019-02-02] MEDS: clonazePAM 1 MG TAB PO SCH ×3 (07:29→20:53)
[2019-02-02] MEDS: PANTOPRAZOLE 40 MG INJ IVP SCH (07:30)
[2019-02-02 07:42] VITALS: O2SAT 99
--- NOTE | 2019-02-02 16:49 | P.PN ---
Subjective Date of Service: 02/02/19 Chief Complaint: Nausea vomiting hypokalemia Subjective: No new changes, Ambulating, C/O voiced (Continue with Nausea and vomitting today), NPO Review of Systems 10-point ROS is otherwise unremarkable Physical Examination - Vital Signs Temperature: 97.5 F Blood Pressure: 121/56 Pulse: 73 Respirations: 16 Pulse Ox (%): 99 - Physical Exam General: Alert, In no apparent distress HEENT: Atraumatic, PERRLA, EOMI Neck: Supple, JVD not distended Respiratory: Clear to auscultation bilaterally, Normal air movement Cardiovascular: Regular rate/rhythm, Normal S1 S2 Gastrointestinal: Normal bowel sounds, No tenderness Musculoskeletal: No tenderness Integumentary: No rashes Neurological: Normal speech, Normal tone, Normal affect Lymphatics: No axilla or inguinal lymphadenopathy - Studies Medications List Reviewed: Yes Assessment And Plan - Current Problems (Diagnosis) (1) Nausea & vomiting Current Visit: Yes Status: Acute Plan: Pt with Persistent N/V -Recently had EGD done by Dr Moon at [facility] was found to have healing ulcers and Gastroparesis -Has been taking Motrin -Possible GI Bleeding 2.2 to Ulcers -On IV protonix and Octerotide -Will start On Reglan for now -GI not available at this time in hospital -Will transfer pt to [facility] once bed becomes available (2) Anemia Current Visit: Yes Status: Acute Plan: Acute Blood loss anemia vs Diluation -Possible Upper GI bleed -Will get FOBT done -On IV ggt protonix and oct -Will transfuse < 7.0 Qualifiers: Anemia type: iron deficiency Iron deficiency anemia type: chronic blood loss Qualified Code(s): D50.0 - Iron deficiency anemia secondary to blood loss (chronic) (3) Smoker Current Visit: Yes Status: Chronic (4) Peptic ulcer Current Visit: Yes Status: Chronic - Plan Pending clinical Improvement and acceptance to [facility] Discharge Plan: Home Plan to discharge in: Greater than 2 days - Code Status/Comfort Care Code Status Assessed: Yes Critical Care: No
[2019-02-02] MEDS: AMANTADINE 100 MG CAP PO SCH (20:52)
[2019-02-02] MEDS: TOPIRAMATE 100 MG TAB PO SCH (20:53)
[2019-02-02] MEDS: QUETIAPINE 100MG TAB PO PRN (20:53)
[2019-02-02] MEDS: BENZTROPINE 1 MG TAB PO SCH (20:56)
[2019-02-03] MEDS: METOCLOPRAMIDE 10 MG/2mL INJ IV SCH ×2 (02:26→11:48)
[2019-02-03] MEDS: ONDANSETRON 4 MG/2 ML VIAL IV PRN (03:59)
[2019-02-03] MEDS: MORPHINE 4 MG/ML SYR IV PRN ×2 (03:59→08:24)
[2019-02-03] MEDS: LEVOTHYROXINE SOD 0.025 MG TAB PO SCH (05:47)
[2019-02-03] MEDS: PANTOPRAZOLE 40 MG INJ IVP SCH (08:24)
[2019-02-03] MEDS: clonazePAM 1 MG TAB PO SCH (08:24)
[2019-02-03] MEDS: NA CHLORIDE 0.9% 1,000 ML IV SCH (08:27)
[2019-02-03] MEDS: SUCRALFATE 1GM/10ML UCUP PO SCH ×2 (08:35→11:48)
[2019-02-03 13:03] VITALS: BP 105/52; TEMP 97.7
--- NOTE | 2019-02-03 15:03 | P.DS ---
Admission Date: 02/01/19 Discharge Date: 02/03/19 Disposition: TRANSFER TO [facility] Discharge Condition: GOOD Reason for Admission: Nausea vomiting hypokalemia - Problems (1) Nausea & vomiting Status: Acute (2) Anemia Status: Acute Qualifiers: Anemia type: iron deficiency Iron deficiency anemia type: chronic blood loss Qualified Code(s): D50.0 - Iron deficiency anemia secondary to blood loss (chronic) (3) Smoker Status: Chronic (4) Peptic ulcer Status: Chronic Brief History of Present Illness: Patient is 43 years of age with a history of gastric paresis has had nausea vomiting for the past 2 months was seen by GI in [place]. She was prescribed Carafate and has been taking 800 mg of Motrin a day apparently she also has peptic ulcer disease complaining of some abdominal discomfort Hospital Course: Overall during the hospital stay patient remained stable Patient was initially admitted to the hospital for intractable nausea vomiting. Had recent EGD done at [facility] in [place]. At that time was diagnosed with gastroparesis along with healing ulcers. Patient has been taking increasing number of Motrin recently. Hemoglobin did go down from 14 to 12. Patient was initially started on Protonix and octreotide here in the hospital. Also was started on IV fluids here in the hospital. SVT was positive. Patient's GI doctor was consulted who recommended patient be transferred to [facility] for any repeat EGD. Patient was accepted at [facility] and was transferred there for further care. Patient remained stable Vital Signs/Physical Exam: Temp Pulse Resp BP Pulse Ox 97.7 F 69 16 105/52 L 99 02/03/19 12:00 02/03/19 12:00 02/03/19 12:00 02/03/19 12:00 02/03/19 12:00 General: Alert, In no apparent distress HEENT: Atraumatic, PERRLA, EOMI Neck: Supple, JVD not distended Respiratory: Clear to auscultation bilaterally, Normal air movement Cardiovascular: Regular rate/rhythm, Normal S1 S2 Gastrointestinal: Normal bowel sounds, No tenderness Musculoskeletal: No tenderness Integumentary: No rashes Neurological: Normal speech, Normal tone, Normal affect Lymphatics: No axilla or inguinal lymphadenopathy Laboratory Data at Discharge: WBC 4.3 K/uL (4.3-10.9) D 02/01/19 04:22 Hgb 11.9 g/dL (12.0-15.0) L 02/01/19 04:22 Hct 34.6 % (36.0-45.0) L 02/01/19 04:22 Plt Count 191 K/uL (152-406) D 02/01/19 04:22 Sodium 144 mmol/L (136-145) 02/02/19 03:42 Potassium 4.0 mmol/L (3.5-5.1) 02/02/19 17:50 BUN 2 mg/dL (7-18) L 02/02/19 03:42 Creatinine 0.79 mg/dL (0.55-1.3) 02/02/19 03:42 Glucose 66 mg/dL (74-106) L 02/02/19 03:42 Total Bilirubin 0.3 mg/dL (0.2-1.0) 02/01/19 04:22 AST 13 U/L (15-37) L 02/01/19 04:22 ALT 24 U/L (12-78) 02/01/19 04:22 Alkaline Phosphatase 81 U/L (45-117) 02/01/19 04:22 Lipase 89 U/L (73-393) 01/31/19 06:24 Home Medications: Quetiapine Fumarate [Seroquel] 200 mg PO BEDTIME PRN 04/16/12 Amantadine HCl [Amantadine] 400 mg PO BEDTIME 01/31/19 Benztropine Mesylate [Cogentin] 1 mg PO BEDTIME 01/31/19 Levothyroxine Sodium 25 mcg PO DAILY 01/31/19 Metoclopramide [Reglan] 10 mg PO TID 01/31/19 Omeprazole [Prilosec] 40 mg PO DAILY PRN 01/31/19 Sucralfate [Carafate] 1 gm PO AC 01/31/19 Topiramate [Topamax] 100 mg PO BEDTIME 01/31/19 clonazePAM [Clonazepam] 1 mg PO TID 01/31/19 Activity: Ad caleb
== END 2019-02-03 14:13 | disposition short-term general hospital (02) | DRG 391 ==
LOC: ER 06:01 → SUPCPDRO 06:01 → ERHOLD 09:38 → 4TH 10:49 → OBSVTOIN 02-01 17:42
PROVIDERS: ADMIT Internal Medicine Sleep Medicine; ATTEND Internal Medicine Sleep Medicine
DX: K31.84 Gastroparesis (principal); K27.4 Chronic or unspecified peptic ulcer, site unspecified, with hemorrhage; D62 Acute posthemorrhagic anemia; E03.9 Hypothyroidism, unspecified; F17.210 Nicotine dependence, cigarettes, uncomplicated; E87.6 Hypokalemia
CPT/HCPCS: 36415; 74177; 80048; 80053; 80076; 81003; 81025; 83690; 84132; 85025; 96365; 96366; 96375; 99285; C9113; G0378; J2405; J2550; J2765; J7030; Q9967

== ENCOUNTER 2019-02-05 19:45 | Emergency (ER) | payer OTHER ==
--- OUTSIDE RECORDS SUMMARY | 2019-02-05 19:47 | XMS REPORT ---
:1975 [facility] Address [address] [place] [address] Dr. Hillman [address] [place] [id number] Care Team Providers Name Role Phone Unavailable Unavailable Unavailable Problems This patient has no known problems. Allergies, Adverse Reactions, Alerts This patient has no known allergies or adverse reactions. Medications This patient has no known medications.
[2019-02-05] MEDS ORDERED: NA CHLORIDE 0.9% 2,000 ML ONE (20:13)
[2019-02-05] MEDS ORDERED: ONDANSETRON 4 MG/2 ML VIAL ONE (20:13)
[2019-02-05] MEDS ORDERED: MORPHINE 4 MG/ML SYR ONE (20:13)
[2019-02-05] MEDS ORDERED: FAMOTIDINE 20 MG/2 ML VIAL IV ONE (20:13)
[2019-02-05 20:45] LABS: Absolute Lymphocytes (CBC) 2.7 K/uL (0.7-4.9); Basophils % 0.3 % (0-1.3); Hematocrit 40.3 % (36.0-45.0); Lymphocytes % 30.2 % (15.3-44.8); MPV 9.8 fL (7.6-11.3)
--- NOTE | 2019-02-05 20:53 | RAD REPORT ---
EXAM DESCRIPTION: Bruno Single View02/05/2019 8:36 pm CLINICAL HISTORY: Abdominal pain COMPARISON: May 2018 FINDINGS: The lungs appear clear of acute infiltrate. The heart is normal size IMPRESSION: No acute abnormalities displayed
[2019-02-05 21:10] LABS: ALT/SGPT 26 U/L (12-78); Albumin 3.9 g/dL (3.4-5.0); Alkaline Phosphatase 128 U/L (45-117); BUN Blood Urea Nitrogen 4 mg/dL (7-18); Bicarbonate 23 mmol/L (21-32); Bilirubin Direct 0.2 mg/dL (0-0.2); Bilirubin Total 0.6 mg/dL (0.2-1.0); Glucose Level 80 mg/dL (74-106); Lipase 58 U/L (73-393); NT PRO-BNP 919 pg/mL (<125); Protein, Total 6.8 g/dL (6.4-8.2); Sodium Level 141 mmol/L (136-145); Troponin (Emerg Dept Use Only) < 0.02 ng/mL (0.0-0.045)
[2019-02-05 21:11] LABS: AST/SGOT 20 U/L (15-37); Potassium 3.3 mmol/L (3.5-5.1)
[2019-02-05 21:38] LABS: Blood Morphology Comment NOT SEEN (NOT SEEN); Platelet Estimate ADEQ; Urine White Blood Cell Casts OK
[2019-02-05 22:14] LABS: Urine Blood NEGATIVE (NEG); Urine Glucose NEGATIVE (NEG); Urine Protein NEGATIVE (NEG); Urine Specific Gravity 1.015 (1.005-1.030); Urine pH 6.5 (5.0-7.0)
--- NOTE | 2019-02-05 23:42 | EDPHYS ---
Physician Documentation [facility] Name: Pratibha Howard Age: 43 yrs Sex: Female : 1975 Arrival Date: 02/05/2019 Time: 19:47 Bed 7 Private MD: ED Physician Ildefonso Wilks HPI: 02/05 20:05 This 43 yrs old Female presents to ER via Ambulatory with complaints of brant Abdominal Pain. 20:05 The patient presents with abdominal pain in the epigastric area, in the upper abdomen, brant abdominal distention in the epigastric area, in the upper abdomen. Onset: The symptoms/episode began/occurred 3 day(s) ago. The symptoms radiate to Associated signs and symptoms: none. The symptoms are described as crampy. Modifying factors: The symptoms are alleviated by nothing, the symptoms are aggravated by food. Severity of pain: At its worst the pain was moderate in the emergency department the pain is unchanged. The patient has experienced similar episodes in the past, several times. 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 - Social history:: Smoking status: Patient uses tobacco products, smokes one-half pack cigarettes per day. - Ebola Screening: : Patient denies exposure to infectious person Patient denies travel to an Ebola-affected area in the 21 days before illness onset. - Family history:: not pertinent. ROS: 20:05 Constitutional: Negative for fever, chills, and weight loss, Eyes: Negative for injury, brant pain, redness, and discharge, ENT: Negative for injury, pain, and discharge, Neck: Negative for injury, pain, and swelling, Cardiovascular: Negative for chest pain, palpitations, and edema, Respiratory: Negative for shortness of breath, cough, wheezing, and pleuritic chest pain, Back: Negative for injury and pain, : Negative for injury, bleeding, discharge, and swelling, MS/Extremity: Negative for injury and deformity, Skin: Negative for injury, rash, and discoloration, Neuro: Negative for headache, weakness, numbness, tingling, and seizure, Psych: Negative for depression, anxiety, suicide ideation, homicidal ideation, and hallucinations, Allergy/Immunology: Negative for hives, rash, and allergies, Endocrine: Negative for neck swelling, polydipsia, polyuria, polyphagia, and marked weight changes, Hematologic/Lymphatic: Negative for swollen nodes, abnormal bleeding, and unusual bruising. 20:05 Abdomen/GI: Positive for abdominal pain, of the epigastric area, right upper quadrant and left upper quadrant. Exam: 20:05 Constitutional: This is a well developed, well nourished patient who is awake, alert, brant and in no acute distress. Head/Face: Normocephalic, atraumatic. Eyes: Pupils equal round and reactive to light, extra-ocular motions intact. Lids and lashes normal. Conjunctiva and sclera are non-icteric and not injected. Cornea within normal limits. Periorbital areas with no swelling, redness, or edema. ENT: Nares patent. No nasal discharge, no septal abnormalities noted. Tympanic membranes are normal and external auditory canals are clear. Oropharynx with no redness, swelling, or masses, exudates, or evidence of obstruction, uvula midline. Mucous membranes moist. Neck: Trachea midline, no thyromegaly or masses palpated, and no cervical lymphadenopathy. Supple, full range of motion without nuchal rigidity, or vertebral point tenderness. No Meningismus. Chest/axilla: Normal chest wall appearance and motion. Nontender with no deformity. No lesions are appreciated. Cardiovascular: Regular rate and rhythm with a normal S1 and S2. No gallops, murmurs, or rubs. Normal PMI, no JVD. No pulse deficits. Respiratory: Lungs have equal breath sounds bilaterally, clear to auscultation and percussion. No rales, rhonchi or wheezes noted. No increased work of breathing, no retractions or nasal flaring. Back: No spinal tenderness. No costovertebral tenderness. Full range of motion. Skin: Warm, dry with normal turgor. Normal color with no rashes, no lesions, and no evidence of cellulitis. MS/ Extremity: Pulses equal, no cyanosis. Neurovascular intact. Full, normal range of motion. Neuro: Awake and alert, GCS 15, oriented to person, place, time, and situation. Cranial nerves II-XII grossly intact. Motor strength 5/5 in all extremities. Sensory grossly intact. Cerebellar exam normal. Normal gait. Psych: Awake, alert, with orientation to person, place and time. Behavior, mood, and affect are within normal limits. 20:05 Abdomen/GI: Inspection: abdomen appears normal, Bowel sounds: normal, Palpation: moderate abdominal tenderness, Liver: no appreciated palpable abnormalities, Hernia: not appreciated. Vital Signs: 20:02 BP 142 / 69; Pulse 71; Resp 18; Temp 97.4; Pulse Ox 100% on R/A; Weight 68.04 kg; aa1 Height 5 ft. 0 in. (152.40 cm); Pain 10/10; 20:48 BP 129 / 71; Pulse 85; Resp 16; Pulse Ox 99% ; Pain 5/10; rr5 22:00 BP 121 / 70; Pulse 89; Resp 16; Pulse Ox 98% ; rr5 23:00 BP 119 / 70; Pulse 73; Resp 18; Pulse Ox 98% ; Pain 0/10; rr5 12 00:00 BP 119 / 74; Pulse 71; Resp 17; Pulse Ox 99% ; rr5 00:48 BP 115 / 62; Pulse 73; Resp 15; Temp 98; Pulse Ox 99% ; rr5 02/05 20:02 Body Mass Index 29.29 (68.04 kg, 152.40 cm) aa1 MDM: 02/05 19:52 Patient medically screened. [facility] 20:07 Data reviewed: vital signs, nurses notes, lab test result(s), EKG, radiologic studies, [facility] CT scan, plain films. 02/05 20:04 Order name: Basic Metabolic Panel; Complete Time: 22:00 [facility] 02/05 20:04 Order name: CBC with Diff; Complete Time: 22:00 [facility] 02/05 20:04 Order name: LFT's; Complete Time: 22:00 [facility] 02/05 20:04 Order name: Magnesium; Complete Time: 22:00 [facility] 02/05 20:04 Order name: NT PRO-BNP; Complete Time: 22:00 [facility] 02/05 20:04 Order name: Troponin (emerg Dept Use Only); Complete Time: 22:00 [facility] 02/05 20:04 Order name: XRAY Chest (1 view); Complete Time: 22:00 [facility] 02/05 20:04 Order name: Lipase; Complete Time: 22:00 [facility] 02/05 20:04 Order name: CT Abd/Pelvis - PO and IV Contrast [facility] 02/05 20:04 Order name: Urine Culture [facility] 02/05 21:39 Order name: CBC Smear Scan; Complete Time: 22:00 [facility] 02/05 22:01 Order name: Urine Dipstick--Ancillary (enter results); Complete Time: 23:38 [facility] 02/05 22:01 Order name: Urine --Ancillary (enter results); Complete Time: 23:38 [facility] 02/05 20:04 Order name: EKG; Complete Time: 20:05 [facility] 02/05 20:04 Order name: Cardiac monitoring; Complete Time: 20:28 [facility] 02/05 20:04 Order name: EKG - Nurse/Tech; Complete Time: 20:29 [facility] 02/05 20:04 Order name: IV Saline Lock; Complete Time: 20:29 [facility] 02/05 20:04 Order name: Labs collected and sent; Complete Time: 20:29 [facility] 02/05 20:04 Order name: O2 Per Protocol; Complete Time: 20:29 [facility] 02/05 20:04 Order name: O2 Sat Monitoring; Complete Time: 21:06 [facility] 02/05 20:04 Order name: Urine Test (obtain specimen); Complete Time: 21:57 [facility] 02/05 20:04 Order name: Urine Dipstick-Ancillary (obtain specimen); Complete Time: 21:57 [facility] 02/05 23:39 Order name: PO challenge: juice; Complete Time: 00:29 [facility] Administered Medications: 20:20 Drug: NS 0.9% 1000 ml Route: IV; Rate: 1 bolus; Site: right antecubital; rr5 21:40 Follow up: Response: No adverse reaction; IV Status: Completed infusion; IV Intake: rr5 1000ml 20:21 Drug: Pepcid 20 mg Route: IVP; Site: right antecubital; rr5 21:20 Follow up: Response: No adverse reaction rr5 20:23 Drug: Zofran 4 mg Route: IVP; Site: right antecubital; rr5 21:20 Follow up: Response: No adverse reaction rr5 20:25 Drug: morphine 4 mg {Note: rass 0.} Route: IVP; Site: right antecubital; rr5 21:25 Follow up: Response: No adverse reaction; Pain is decreased; RASS: Alert and Calm (0) rr5 21:40 Drug: NS 0.9% 1000 ml Route: IV; Rate: 1 bolus; Site: right antecubital; rr5 22:30 Follow up: Response: No adverse reaction; IV Status: IV infiltrated; IV Intake: 300ml rr5 23:50 Drug: GI Cocktail without - (Maalox Suspension 30 ml, Lidocaine Liquid 2 % 15 rr5 ml) Route: PO; 02/06 00:20 Follow up: Response: No change in condition rr5 00:30 CANCELLED (Other Intervention Used): Phenergan 25 mg IVP once rr5 00:30 Drug: Phenergan 25 mg Route: IM; Site: right gluteus; rr5 00:46 Follow up: Response: No adverse reaction rr5 00:51 Follow up: Response: No adverse reaction rr5 Disposition: 02/05/19 23:40 Discharged to Home. Impression: Abdominal tenderness, Gastroparesis, Hypokalemia, Gastritis, unspecified, Bipolar disorder. - Condition is Stable. - Discharge Instructions: Abdominal Pain, Adult, Potassium Content of Foods, Bipolar Disorder, Nausea and Vomiting, Adult, Abdominal Pain, Adult, [id number], Hypokalemia, Gastroparesis. - Prescriptions for Bentyl 20 mg Oral Tablet - take 1 tablet by ORAL route every 6 hours As needed; 20 tablet. Zofran 4 mg Oral Tablet - take 1 tablet by ORAL route every 12 hours As needed; 20 tablet. Protonix 40 mg Oral Tablet, Delayed Release (E.C.) - take 1 tablet by ORAL route once daily; 20 tablet. - Medication Reconciliation Form, Thank You Letter, Antibiotic Education, Prescription Opioid Use form. - Follow up: Private Physician; When: 2 - 3 days; Reason: Recheck today's complaints, Continuance of care, Re-evaluation by your physician. - Problem is new. - Symptoms have improved. Signatures: Dispatcher [employer] [facility] Santa Jimenez RN RN aa1 Ildefonso Wilks MD MD cha Roque, Raymond RN RN rr5 Corrections: (The following items were deleted from the chart) 02/05 23:51 20:05 PROTIME (+INR)+COAG.LAB.BRZ ordered. [facility] 02/06 00:30 00:29 Phenergan 25 mg IVP once ordered. rr5 rr5 00:52 02/05 23:40 02/05/2019 23:40 Discharged to Home. Impression: Abdominal tenderness; rr5 Gastroparesis; Hypokalemia; Gastritis, unspecified; Bipolar disorder. Condition is Stable. Forms are Medication Reconciliation Form, Thank You Letter, Antibiotic Education, Prescription Opioid Use. Follow up: Private Physician; When: 2 - 3 days; Reason: Recheck today's complaints, Continuance of care, Re-evaluation by your physician. Problem is new. Symptoms have improved. brant
--- NOTE | 2019-02-05 23:42 | ER ---
Nurse's Notes [facility] Name: Pratibha Howard Age: 43 yrs Sex: Female : 1975 Arrival Date: 02/05/2019 Time: 19:47 Bed 7 Private MD: Diagnosis: Abdominal tenderness;Gastroparesis;Hypokalemia;Gastritis, unspecified;Bipolar disorder Presentation: 02/05 19:59 Presenting complaint: Patient states: she was seen here a week ago and diagnosed with aa1 gastroparesis and was transferred to [place] where she had a scope and several biopsies and today after she returned home and tried to eat for the first time she began to have severe abd pain. Denies N/V/D. Transition of care: patient was not received from another setting of care. Onset of symptoms was February 05, 2019. Risk Assessment: Do you want to hurt yourself or someone else? Patient reports no desire to harm self or others. Initial Sepsis Screen: Does the patient meet any 2 criteria? No. Patient's initial sepsis screen is negative. Does the patient have a suspected source of infection? Yes: Acute abdominal pain. Care prior to arrival: None. 19:59 Method Of Arrival: Ambulatory aa1 19:59 Acuity: RAFA 3 aa1 Triage Assessment: 20:02 General: Appears in no apparent distress. uncomfortable, Behavior is calm, cooperative, aa1 appropriate for age. Pain: Complains of pain in abdomen Pain currently is 10 out of 10 on a pain scale. 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 - Social history:: Smoking status: Patient uses tobacco products, smokes one-half pack cigarettes per day. - Ebola Screening: : Patient denies exposure to infectious person Patient denies travel to an Ebola-affected area in the 21 days before illness onset. - Family history:: not pertinent. Screenin:29 Abuse screen: Denies threats or abuse. Denies injuries from another. Nutritional rr5 screening: No deficits noted. Tuberculosis screening: No symptoms or risk factors identified. 21:00 Fall Risk IV access (20 points). Total Ramos Fall Scale indicates No Risk (0-24 pts). rr5 Assessment: 20:00 General: Appears in no apparent distress. uncomfortable, Behavior is calm, cooperative, rr5 appropriate for age. 20:00 Pain: Complains of pain in abdomen Pain does not radiate. Pain currently is 10 out of rr5 10 on a pain scale. Quality of pain is described as aching, Pain began gradually, Is intermittent. Neuro: Level of Consciousness is awake, alert, obeys commands, Oriented to person, place, time, situation, Appropriate for age. Cardiovascular: Capillary refill < 3 seconds Patient's skin is warm and dry. Respiratory: Airway is patent Respiratory effort is even, unlabored, Respiratory pattern is regular, symmetrical. GI: Abdomen is round Bowel sounds Guarding noted Reports lower abdominal pain, upper abdominal pain. : No signs and/or symptoms were reported regarding the genitourinary system. EENT: No signs and/or symptoms were reported regarding the EENT system. Derm: Skin is intact, is healthy with good turgor, Skin temperature is warm. Musculoskeletal: Circulation, motion, and sensation intact. Capillary refill < 3 seconds. 20:48 Reassessment: Patient appears in no apparent distress at this time. Patient is alert, rr5 oriented x 3, equal unlabored respirations, skin warm/dry/pink. Patient states feeling better. Patient states symptoms have improved. Reassessment: Patient appears in no apparent distress at this time. Patient is alert, oriented x 3, equal unlabored respirations, skin warm/dry/pink. Pain: Pain currently is 5 out of 10 on a pain scale. 21:30 Reassessment: Patient appears in no apparent distress at this time. Patient is alert, rr5 oriented x 3, equal unlabored respirations, skin warm/dry/pink. Patient states symptoms have improved. 22:30 Reassessment: Patient appears in no apparent distress at this time. Patient is alert, rr5 oriented x 3, equal unlabored respirations, skin warm/dry/pink. came back from CT scan IV infiltrated. IV removed compression dressing applied. 23:10 Reassessment: Patient appears in no apparent distress at this time. Patient and/or rr5 family updated on plan of care and expected duration. Pain level reassessed. Patient is alert, oriented x 3, equal unlabored respirations, skin warm/dry/pink. no complaints made awaiting for result. 02/06 00:10 Reassessment: Patient appears in no apparent distress at this time. Patient is alert, rr5 oriented x 3, equal unlabored respirations, skin warm/dry/pink. patient feels nauseous while on PO challenge,ED provider aware with order made and carried out. 00:30 Reassessment: reassess by ED provider, denies chest pain or discomfort. she complaints rr5 of nausea. additional order made and carried out. 00:46 Reassessment: Patient appears in no apparent distress at this time. Patient is alert, rr5 oriented x 3, equal unlabored respirations, skin warm/dry/pink. patient requested to be discharge and will take a rest at home. discharge instruction given and explained with out complaints made. swelling on the right AC subsided continue compression bandage applied. Vital Signs: 02/05 20:02 BP 142 / 69; Pulse 71; Resp 18; Temp 97.4; Pulse Ox 100% on R/A; Weight 68.04 kg; aa1 Height 5 ft. 0 in. (152.40 cm); Pain 10/10; 20:48 BP 129 / 71; Pulse 85; Resp 16; Pulse Ox 99% ; Pain 5/10; rr5 22:00 BP 121 / 70; Pulse 89; Resp 16; Pulse Ox 98% ; rr5 23:00 BP 119 / 70; Pulse 73; Resp 18; Pulse Ox 98% ; Pain 0/10; rr5 02/06 00:00 BP 119 / 74; Pulse 71; Resp 17; Pulse Ox 99% ; rr5 00:48 BP 115 / 62; Pulse 73; Resp 15; Temp 98; Pulse Ox 99% ; rr5 02/05 20:02 Body Mass Index 29.29 (68.04 kg, 152.40 cm) aa1 ED Course: 02/05 19:47 Patient arrived in ED. as 19:52 Ildefonso Wilks MD is Attending Physician. brant 20:01 Triage completed. aa1 20:02 Arm band placed on right wrist. Patient placed in an exam room, on a stretcher. aa1 20:02 Patient has correct armband on for positive identification. rr5 20:02 security monitor on. Pulse ox on. NIBP on. rr5 20:07 Odin Barba, OZIEL is Primary Nurse. rr5 20:14 Oral contrast given. vm2 20:22 Inserted saline lock: 20 gauge in right antecubital area, using aseptic technique. cm6 20:37 XRAY Chest (1 view) In Process Unspecified. EDMS 22:23 CT Abd/Pelvis - PO and IV Contrast In Process Unspecified. EDMS 22:30 IV discontinued, intact, bleeding controlled, Pressure dressing applied, positive rr5 infiltration. 12 00:49 Assist provider with bone marrow aspiration. rr5 Administered Medications: 02/05 20:20 Drug: NS 0.9% 1000 ml Route: IV; Rate: 1 bolus; Site: right antecubital; rr5 21:40 Follow up: Response: No adverse reaction; IV Status: Completed infusion; IV Intake: rr5 1000ml 20:21 Drug: Pepcid 20 mg Route: IVP; Site: right antecubital; rr5 21:20 Follow up: Response: No adverse reaction rr5 20:23 Drug: Zofran 4 mg Route: IVP; Site: right antecubital; rr5 21:20 Follow up: Response: No adverse reaction rr5 20:25 Drug: morphine 4 mg {Note: rass 0.} Route: IVP; Site: right antecubital; rr5 21:25 Follow up: Response: No adverse reaction; Pain is decreased; RASS: Alert and Calm (0) rr5 21:40 Drug: NS 0.9% 1000 ml Route: IV; Rate: 1 bolus; Site: right antecubital; rr5 22:30 Follow up: Response: No adverse reaction; IV Status: IV infiltrated; IV Intake: 300ml rr5 23:50 Drug: GI Cocktail without - (Maalox Suspension 30 ml, Lidocaine Liquid 2 % 15 rr5 ml) Route: PO; 02/06 00:20 Follow up: Response: No change in condition rr5 00:30 CANCELLED (Other Intervention Used): Phenergan 25 mg IVP once rr5 00:30 Drug: Phenergan 25 mg Route: IM; Site: right gluteus; rr5 00:46 Follow up: Response: No adverse reaction rr5 00:51 Follow up: Response: No adverse reaction rr5 Intake: 02/05 21:40 IV: 1000ml; Total: 1000ml. rr5 22:30 IV: 300ml; Total: 1300ml. rr5 Outcome: 23:40 Discharge ordered by MD. guo 02/06 00:50 Discharged to home ambulatory, with family. rr5 Condition: stable Discharge instructions given to patient, family, Instructed on discharge instructions, follow up and referral plans. medication usage, Demonstrated understanding of instructions, follow-up care, medications, Prescriptions given X 3. 00:52 Patient left the ED. rr5 Signatures: Dispatcher [employer] EDMS Santa Jimenez, RN RN aa1 Ildefonso Wilks MD MD cha Martinez, Amelia as McGuire, Victoria 2 Odin Barba RN RN rr5 Geraldine Bernal cm6 Corrections: (The following items were deleted from the chart) 02/05 20:12 20:11 Inserted saline lock: 20 gauge cm6 cm6
[2019-02-05] MEDS ORDERED: MAGNE/ALUM HYDROXD 30 ML UCUP ONE (23:47)
[2019-02-05] MEDS ORDERED: LIDOCAINE VISCOUS 2% SOLN 15 ML UDC ONE (23:47)
[2019-02-06] MEDS ORDERED: ONDANSETRON 4 MG (ODT) TAB ONE (00:10)
[2019-02-06] MEDS ORDERED: PROMETHAZINE 25 MG/ML VIAL ONE (00:28)
[2019-02-06 02:55] VITALS: O2SAT 99
[2019-02-06 02:57] VITALS: BP 115/62; TEMP 98
--- NOTE | 2019-02-06 07:01 | EKG ---
Test Date: 2019-02-05 Test Time: 20:20:16 Wet Pan Operator: RR MEASUREMENT RESULTS: Intervals: Rate: 60 AR: 128 QRSD: 84 QT: 442 QTc: 442 Arco: P: 66 AR: 128 QRS: 57 T: 40 INTERPRETIVE STATEMENTS: Normal sinus rhythm Low voltage QRS Cannot rule out Anterior infarct, age undetermined Abnormal ECG Compared to ECG 09/19/2017 11:05:12 Myocardial infarct finding now present Sinus tachycardia no longer present ST (T wave) deviation no longer present Electronically Signed On 02-06-19 07:01:15 SALESPERSON FLORIST SUPPLIES by Pola Galaviz
--- NOTE | 2019-02-06 12:35 | RAD REPORT ---
EXAM DESCRIPTION: CT Abdomen and Pelvis With Intravenous Contrast CLINICAL HISTORY: The patient is 43 years old and is Female; ABD PAIN TECHNIQUE: Axial computed tomography images of the abdomen and pelvis with intravenous contrast. S agittal and coronal reformatted images were created and reviewed. This CT exam was performed using one or more of the following dose reduction techniques: automated exposure control, adjustment of t he mA and/or kV according to patient size, and/or use of iterative reconstruction technique. COMPARISON: CT of the abdomen and pelvis January 31, 2019. FINDINGS: LUNG BASES: Unremarkable. No mass. No consolidation. ABDOMEN: LIVER: Unremarkable. No mass. GALLBLADDER AND BILE DUCTS: No calcified stones. No ductal dilation. PANCREAS: No ductal dilation. No mass. SPLEEN: Unremarkable. ADRENALS: Unremarkable. No mass. KIDNEYS AND URETERS: Unremarkable. The kidneys enhance symmetrically. No obstructing renal or ur eteral calculus is seen. No hydronephrosis or hydroureter. No perinephric fluid or stranding. STOMACH AND BOWEL: The stomach is distended with oral contrast. Oral contrast is noted within th e proximal small bowel. The distal small bowel is decompressed. A large amount of stool is present th roughout the colon. Mild fatty infiltration of the mucosa of the majority of the colon is noted sugge sting a history of inflammatory bowel disease. There is no mucosal thickening or evidence of bowel ob struction. PELVIS: APPENDIX: The appendix is normal in caliber without surrounding inflammation. BLADDER: The bladder is significantly distended. REPRODUCTIVE: Unremarkable as visualized. ABDOMEN and PELVIS: INTRAPERITONEAL SPACE: Unremarkable. No free air. No significant fluid collection. BONES/JOINTS: No acute fracture. SOFT TISSUES: The soft tissues are normal. VASCULATURE: Unremarkable. No abdominal aortic aneurysm. LYMPH NODES: Unremarkable. No enlarged lymph nodes. IMPRESSION: No acute findings on this noncontrasted CT of the abdomen and pelvis to explain the mary kate ent's symptoms. Electronically signed by: Massiel Woodruff MD 02/05/2019 11:06 PM CRYPTOGRAPHIC CLERK Due to temporary technical issues with the PACS/Fluency reporting system, reports are being signed by the in house radiologist as a courtesy to ensure prompt reporting. The interpreting radiologist is f ully responsible for the content of the report.
== END 2019-02-06 00:52 | disposition home or self-care (01) ==
LOC: ER 19:45
DX: K31.84 Gastroparesis (principal); E87.6 Hypokalemia; K29.70 Gastritis, unspecified, without bleeding; F31.9 Bipolar disorder, unspecified; E03.9 Hypothyroidism, unspecified; F17.210 Nicotine dependence, cigarettes, uncomplicated; Z88.0 Allergy status to penicillin; Z88.8 Allergy status to other drugs, medicaments and biological substances
CPT/HCPCS: 96361; 93005; 87088; 85025; 87086; 80048; 36415; 83735; 81025; 80076; 81003; 84484; 83690; 83880; 74177; 71045; 96375; 96372; 96374; 99285; Q9967; J2550; J7030; J2405

== ENCOUNTER 2024-04-18 23:42 | Emergency (ER) | payer MEDICARE, OTHER ==
[2024-04-19] MEDS ORDERED: LORazepam 2 MG/ML VIAL ONE ×2 (01:07→04:48)
[2024-04-19] MEDS ORDERED: METOCLOPRAMIDE 10 MG/2mL INJ ONE (01:08)
[2024-04-19] MEDS ORDERED: KETOROLAC 30 MG/ML INJ ONE (01:08)
[2024-04-19] MEDS ORDERED: NA CHLORIDE 0.9% 1,000 ML ONE (01:08)
[2024-04-19] MEDS ORDERED: DIPHENHYDRAMINE 50 MG/ML VIAL ONE (01:08)
[2024-04-19 01:26] LABS: Specific Gravity 1.008 (1.005-1.030); Sqamous Epithelial <5 /HPF (None Seen); Urine Bacteria <20 /HPF (<20); Urine Bilirubin NEGATIVE (Negative); Urine Blood Negative (Negative); Urine Clarity Clear (Clear); Urine Color Colorless (Yellow); Urine Culture Reflex Order NOT NEEDED; Urine Glucose NEGATIVE (Negative); Urine Ketones NEGATIVE (Negative); Urine Microscopic Reflex YN ORDER UMIC; Urine Nitrite NEGATIVE (Negative); Urine Protein NEGATIVE (Negative); Urine RBC None Seen /HPF (None Seen); Urine Urobilinogen Normal (Normal); Urine WBC <5 /HPF (<5)
[2024-04-19 01:31] LABS: Barbiturates NEGATIVE (NEGATIVE); Benzodiazepines NEGATIVE (NEGATIVE); Cocaine NEGATIVE (NEGATIVE); METHAMPHETAM NEGATIVE (NEGATIVE); Methadone NEGATIVE (NEGATIVE); Opiates NEGATIVE (NEGATIVE); Phencyclidine NEGATIVE (NEGATIVE); THC Cannibis POSITIVE (NEGATIVE)
[2024-04-19 01:32] LABS: Absolute Basophils 0.1 K/uL (0-0.5); Absolute Eosinophils 0.2 K/uL (0-0.5); Absolute Monocytes 0.7 K/uL (0.1-1.3); Absolute Neutrophil 5.6 K/uL (1.8-8.0); Basophils % 0.6 % (0-1.3); Eosinophils % 2.3 % (0-4.4); Hematocrit 41.5 % (36.0-45.0); Hemoglobin 14.3 g/dL (12.0-15.0); Lymphocytes % 31.5 % (15.3-44.8); MCH 31.3 pg (27.0-35.0); MCHC 34.6 g/dL (32.0-36.0); MCV 90.5 fL (80-100); MPV 8.9 fL (7.6-11.3); Monocytes % 7.3 % (3.3-12.3); Neutrophils % 58.3 % (41.7-73.7); Nucleated Red Blood Cells % 0.1 % (0-0); Platelets 297 thou/uL (152-406); RBC Red Blood Cell Count 4.58 M/uL (3.86-4.86); Red Cell Distribution Width 13.2 % (12.1-15.2)
[2024-04-19 01:38] LABS: PT Prothrombin Time 10.2 SECONDS (9.4-12.5); PTT, Activated Partial Thromb 33.2 SECONDS (24.3-36.9); Protime INR 0.97
[2024-04-19 02:01] LABS: ALT/SGPT 24 U/L (13-56); AST/SGOT 13 U/L (15-37); Albumin 3.6 g/dL (3.4-5.0); Alkaline Phosphatase 142 U/L (45-117); Anion Gap 7.7 mEq/L (5.0-15.0); BUN Blood Urea Nitrogen 12 mg/dL (7-18); Bicarbonate 28 mEq/L (21-32); Bilirubin Total 0.2 mg/dL (0.2-1.0); Globulin 3.7 g/dL (2.3-3.5); Glomerular Filtration Rate 76 ml/min (=/>90); Glucose Level 98 mg/dL (74-106); Potassium 3.7 mEq/L (3.5-5.1); Protein, Total 7.3 g/dL (6.4-8.2); Sodium Level 141 mEq/L (136-145)
[2024-04-19 02:02] LABS: Bilirubin Direct < 0.2 mg/dL (0-0.2)
[2024-04-19] MEDS ORDERED: WATER FOR INJ,STERILE 10 ML ONE (03:39)
[2024-04-19] MEDS ORDERED: ZIPRASIDONE MESYLA 20 MG/VIAL IM ONE (03:39)
--- NOTE | 2024-04-19 05:19 | EDPHYS ---
Physician Documentation [facility] Name: Pratibha Howard Age: 49 yrs Sex: Female : 1975 Arrival Date: 04/18/2024 Time: 23:42 Bed 6 Private MD: ED Physician Ildefonso Wilks HPI: 04/19 00:40 This 49 yrs old Female presents to ER via Ambulatory with complaints of Decreased cp Appetite, Unable to sleep. 00:40 The patient presents to the emergency department with insomnia. Onset: The cp symptoms/episode began/occurred 3 day(s) ago. 00:40 Past psychiatric history: Prior diagnosis: bipolar disorder, Psychiatric medications cp include: lorazepam. 00:40 Associated signs and symptoms: Pertinent negatives: abdominal pain, chest pain, cp delusions, homicidal ideation, suicide ideation, active hallucinations. 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 - Infectious Disease History:: Denies. - Social history:: Smoking status: Patient reports the use of cigarette tobacco products, smokes one pack cigarettes per day. ROS: 00:45 Constitutional: Negative for body aches, chills, fever, poor PO intake, cp 00:45 Eyes: Negative for injury, pain, redness, and discharge, cp 00:45 Cardiovascular: Negative for chest pain, palpitations, 00:45 Respiratory: Negative for cough, shortness of breath, wheezing, 00:45 Abdomen/GI: Negative for abdominal pain, vomiting, diarrhea, constipation, 00:45 Neuro: Negative for altered mental status, dizziness, headache, weakness, 00:45 Psych: Positive for insomnia, Negative for auditory hallucinations, homicidal ideation, suicide gesture, suicidal ideation, 00:45 All other systems are negative, Exam: 00:50 Constitutional: The patient appears in no acute distress, alert, awake, cp non-diaphoretic, non-toxic, well developed, well nourished, 00:50 Head/Face: Normocephalic, atraumatic. cp 00:50 Cardiovascular: Rate: normal, 00:50 Respiratory: the patient does not display signs of respiratory distress, Respirations: normal, no use of accessory muscles, no retractions, labored breathing, is not present, Breath sounds: are clear throughout, no decreased breath sounds, no stridor, no wheezing, 00:50 Abdomen/GI: Exam negative for discomfort, distension, guarding, Inspection: abdomen appears normal, 00:50 Neuro: Orientation: to person, place \T\ time. Mentation: is normal, Motor: moves all cp fours, strength is normal, 00:50 Psych: Behavior/mood is cooperative, Affect is calm, Judgement / Insight is normal. Delusions/hallucinations are not present. 01:21 ECG was reviewed by the Attending Physician. cp Vital Signs: 00:04 Weight 77.11 kg; Height 5 ft. 0 in. ; Pain 6/10; vc1 00:11 BP 116 / 68; Pulse 74; Resp 14; Temp 97; Pulse Ox 96% ; vc1 01:22 BP 111 / 62; Pulse 70; Resp 18; Temp 97.2; Pulse Ox 96% ; Pain 8/10; bm8 02:14 BP 98 / 52; Pulse 90; Resp 18; Temp 97.2; Pulse Ox 99% ; Pain 1/10; bm8 03:45 BP 127 / 54; Pulse 89; Resp 18; Temp 97.2; Pulse Ox 98% ; Pain 0/10; bm8 04:59 BP 109 / 61; Pulse 58; Resp 17; Temp 97.2; Pulse Ox 96% ; Pain 0/10; bm8 00:04 Body Mass Index 33.20 (77.11 kg, 152.4 cm) vc1 00:04 Pain Scale: Adult vc1 01:22 Pain Scale: Adult bm8 02:14 Pain Scale: Adult bm8 03:45 Pain Scale: Adult bm8 04:59 Pain Scale: Adult bm8 Garth Coma Score: 01:22 Eye Response: to voice(3). Motor Response: obeys commands(6). Verbal Response: bm8 confused(4). Total: 13. 02:14 Eye Response: to voice(3). Motor Response: obeys commands(6). Verbal Response: bm8 confused(4). Total: 13. 03:45 Eye Response: to voice(3). Motor Response: obeys commands(6). Verbal Response: bm8 confused(4). Total: 13. 04:59 Eye Response: spontaneous(4). Motor Response: obeys commands(6). Verbal Response: bm8 oriented(5). Total: 15. MDM: 00:29 Medical Screening Exam initiated brant 05:16 Data reviewed: vital signs, nurses notes, lab test result(s), EKG, and as a result, I cp will discharge patient. 05:16 Differential diagnosis: drug withdrawal. acute psychotic break, depression, psychosis cp secondary to non-compliance. I considered the following discharge prescriptions or medication management in the emergency department Medications were administered in the Emergency Department. See MAR. Counseling: I had a detailed discussion with the patient and/or guardian regarding the historical points, exam findings, and any diagnostic results supporting the discharge/admit diagnosis, lab results, to return to the emergency department if symptoms worsen or persist or if there are any questions or concerns that arise at home. Response to treatment: the patient's symptoms have mildly improved after treatment, and as a result, I will discharge patient. 04/19 00:36 Order name: Acetaminophen; Complete Time: 02:06 04/19 02:06 Interpretation: Reviewed. 04/19 00:36 Order name: Basic Metabolic Panel; Complete Time: 02:06 04/19 02:06 Interpretation: Normal except: CL 109; GFR 76. 04/19 00:36 Order name: CBC with Diff; Complete Time: 02:06 04/19 02:07 Interpretation: Reviewed. 04/19 00:36 Order name: ETOH Level; Complete Time: 02:06 04/19 00:36 Order name: Hepatic Function; Complete Time: 02:06 04/19 02:06 Interpretation: Normal except: AST 13; ALK 142; IBILI, CALC 0.0; GLOB 3.7; A/G 1.0. 04/19 00:36 Order name: PT-INR; Complete Time: 02:06 04/19 00:36 Order name: Test, Urine; Complete Time: 01:34 04/19 01:34 Interpretation: Reviewed. 04/19 00:36 Order name: Ptt, Activated; Complete Time: 02:06 cp 04/19 00:36 Order name: Salicylate; Complete Time: 02:06 cp 04/19 00:36 Order name: Urinalysis w/ reflexes; Complete Time: 01:34 cp 04/19 00:36 Order name: Urine Drug Screen; Complete Time: 01:34 cp 04/19 01:34 Interpretation: Normal except: THC POSITIVE. cp 04/19 00:41 Order name: Eva; Complete Time: 02:06 cp 04/19 02:07 Interpretation: Reviewed. 04/19 00:36 Order name: EKG; Complete Time: 00:37 cp 04/19 00:36 Order name: EKG - Nurse/Tech; Complete Time: 01:22 cp 04/19 00:36 Order name: IV Saline Lock; Complete Time: 01:22 cp 04/19 00:36 Order name: Labs collected and sent; Complete Time: 01:22 cp 04/19 00:36 Order name: Suicide Screening (Isabella); Complete Time: 01:14 cp EC:21 Rate is 76 beats/min. Rhythm is regular. [place] interval is normal. QRS interval is normal. cp QT interval is normal. T waves are Inverted in lead aVR. Interpreted by me. Reviewed by me. Administered Medications: 01:22 Drug: Ativan IVP 1 mg IVP once Route: IVP; Site: left antecubital; 8 02:16 Follow up: Response: No adverse reaction bm8 01:22 Drug: diphenhydrAMINE IVP 25 mg IVP once Route: IVP; Site: left antecubital; bm8 02:16 Follow up: Response: No adverse reaction bm8 01:22 Drug: metoCLOPramide IVP 10 mg IVP once; over 1 to 2 minutes Route: IVP; Site: left 8 antecubital; 02:15 Follow up: Response: No adverse reaction bm8 01:22 Drug: Ketorolac IVP 15 mg IVP once Route: IVP; Site: left antecubital; bm8 02:15 Follow up: Response: No adverse reaction bm8 01:22 Drug: NS 0.9% IV 1000 ml IV at 1000 ml once; to be given as a bolus over 60 minutes bm Route: IV; Rate: 1000 ml; Site: left antecubital; 02:15 Follow up: Response: No adverse reaction; IV Status: Completed infusion; IV Intake: bm8 1000ml 03:44 Drug: Geodon IM 10 mg IM once Route: IM; Site: right deltoid; bm8 04:51 Follow up: Response: No adverse reaction; No change in condition bm8 04:39 CANCELLED (Physician Discretion): ativan1 mg IVP once cp 04:51 Drug: Ativan IVP 2 mg IVP once Route: IVP; Site: left antecubital; bm8 05:23 Follow up: Response: No adverse reaction bm8 Disposition: 08:47 Co-signature as Attending Physician, Ildefonso Wilks MD I agree with the assessment and brant plan of care. Disposition Summary: 04/19/24 05:17 Discharge Ordered Notes: Location: Home cp Problem: new cp Symptoms: have improved cp Condition: Stable cp Diagnosis - Insomnia, unspecified cp Followup: cp - With: Private Physician - When: 2 - 3 days - Reason: Recheck today's complaints Discharge Instructions: - Discharge Summary Sheet cp - Insomnia cp Forms: - Medication Reconciliation Form cp - Antibiotic Education cp - Prescription Opioid Use cp - Patient Portal Instructions cp - Leadership Thank You Letter cp - Work release form bm8 Signatures: Dispatcher [employer] Ildefonso Mares MD MD cha Page, Corey, PA PA cp Amie Ferreira RN RN vc1 Davis Araya RN RN bm8 Corrections: (The following items were deleted from the chart) 00:37 00:37 ACETAMINOPHEN+C.LAB.BRZ ordered. EDMS EDMS 00:37 00:37 BASIC METABOLIC PANEL+C.LAB.BRZ ordered. EDMS EDMS 00:37 00:37 CBC+H.LAB.BRZ ordered. EDMS EDMS 00:37 00:37 ETHANOL+C.LAB.BRZ ordered. EDMS EDMS 00:37 00:37 HEPATIC FUNCTION+C.LAB.BRZ ordered. EDMS EDMS 00:37 00:37 PROTIME (+INR)+COAG.LAB.BRZ ordered. EDMS EDMS 00:37 00:37 Test, Urine+UC.LAB.BRZ ordered. EDMS EDMS 00:37 00:37 PTT, ACTIVATED+COAG.LAB.BRZ ordered. EDMS EDMS 00:37 00:37 SALICYLATE+C.LAB.BRZ ordered. EDMS EDMS 00:37 00:37 Urinalysis+U.LAB.BRZ ordered. EDMS EDMS 00:37 00:37 URINE DRUG SCREEN+UC.LAB.BRZ ordered. EDMS EDMS 00:41 00:41 LITHIUM+C.LAB.BRZ ordered. EDMS EDMS 04:39 04:22 Ativan IVP 1 mg IVP once ordered. cp cp 18:13 00:40 Past psychiatric history: Prior diagnosis: bipolar disorder, cp cp
--- NOTE | 2024-04-19 05:19 | ER ---
Nurse's Notes [facility] Name: Pratibha Howard Age: 49 yrs Sex: Female : 1975 Arrival Date: 04/18/2024 Time: 23:42 Bed 6 Private MD: Diagnosis: Insomnia, unspecified Presentation: 04/19 00:04 Chief complaint: Patient states: Hypomanic, I'm terrified that I am going to go into vc1 manic. I don't have enough medications at home to knock me out. This is night number 3. Coronavirus screen: Client denies travel out of the [place] in the last 14 days. At this time, the client does not indicate any symptoms associated with coronavirus-19. Ebola Screen: Patient negative for fever greater than or equal to 101.5 degrees Fahrenheit, and additional compatible Ebola Virus Disease symptoms Patient denies exposure to infectious person. Patient denies travel to an Ebola-affected area in the 21 days before illness onset. No symptoms or risks identified at this time. Initial Sepsis Screen: Does the patient meet any 2 criteria? No. Patient's initial sepsis screen is negative. Does the patient have a suspected source of infection? No. Patient's initial sepsis screen is negative. Risk Assessment: Do you want to hurt yourself or someone else? Patient reports no desire to harm self or others. Onset of symptoms was April 15, 2024. Care prior to arrival: Medication(s) given: ambien, lorazepam, ariprazole, and lexapro. Activity prior to arrival: None. Mechanism of Injury: No Mechanism of Injury. 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 - Infectious Disease History:: Denies. - Social history:: Smoking status: Patient reports the use of cigarette tobacco products, smokes one pack cigarettes per day. Screenin:[address] [facility] ED Fall Risk Assessment (Adult) History of falling in the last 3 months, vc1 including since admission No falls in past 3 months (0 pts) Confusion or Disorientation No (0 pts) Intoxicated or Sedated No (0 pts) Impaired Gait No (0 pts) Mobility Assist Device Used No (0 pt) Altered Elimination No (0 pt) Score/Fall Risk Level 0 - 2 = Low Risk Oriented to surroundings, Maintained a safe environment, Educated pt \T\ family on fall prevention, incl call for assistance when getting out of bed. Abuse screen: Denies threats or abuse. Nutritional screening: No deficits noted. Tuberculosis screening: No symptoms or risk factors identified. Assessment: 01:22 Reassessment: Patient appears in no apparent distress at this time. Patient and/or bm8 family updated on plan of care and expected duration. Pain level reassessed. Patient is alert, oriented x 3, equal unlabored respirations, skin warm/dry/pink. General: Appears in no apparent distress. comfortable, Behavior is calm, cooperative, appropriate for age. Pain: Complains of pain in head Pain currently is 8 out of 10 on a pain scale. Quality of pain is described as aching. Neuro: Level of Consciousness is awake, alert, obeys commands, Oriented to person, place, time, situation, Appropriate for age. Neuro: Reports headache frontal area, extreme difficulty sleeping for three days. . Cardiovascular: No deficits noted. Denies chest pain, Capillary refill < 3 seconds in bilateral fingers Patient's skin is warm and dry. Respiratory: Airway is patent Trachea midline Respiratory effort is even, unlabored, Respiratory pattern is regular, symmetrical, Breath sounds are clear bilaterally. GI: No signs and/or symptoms were reported involving the gastrointestinal system. : No signs and/or symptoms were reported regarding the genitourinary system. EENT: No signs and/or symptoms were reported regarding the EENT system. Derm: No signs and/or symptoms reported regarding the dermatologic system. Musculoskeletal: No signs and/or symptoms reported regarding the musculoskeletal system. 02:14 Reassessment: Patient appears in no apparent distress at this time. Patient and/or bm8 family updated on plan of care and expected duration. Pain level reassessed. Patient is alert, oriented x 3, equal unlabored respirations, skin warm/dry/pink. denies headache Patient states feeling better. 03:34 Reassessment: Patient appears in no apparent distress at this time. Patient and/or bm8 family updated on plan of care and expected duration. Pain level reassessed. Patient is alert, oriented x 3, equal unlabored respirations, skin warm/dry/pink. Patient denies pain at this time. Patient states feeling better. Patient states symptoms have improved. 04:59 Reassessment: Patient appears in no apparent distress at this time. Patient and/or bm8 family updated on plan of care and expected duration. Pain level reassessed. Patient is alert, oriented x 3, equal unlabored respirations, skin warm/dry/pink. pt has still not been asleep despite the medications received. denies pain. Is lying in bed with lights off breathing is even unlabored with symetrical rise and fall of chest Patient denies pain at this time. Vital Signs: 00:04 Weight 77.11 kg; Height 5 ft. 0 in. ; Pain 6/10; vc1 00:11 BP 116 / 68; Pulse 74; Resp 14; Temp 97; Pulse Ox 96% ; vc1 01:22 BP 111 / 62; Pulse 70; Resp 18; Temp 97.2; Pulse Ox 96% ; Pain 8/10; bm8 02:14 BP 98 / 52; Pulse 90; Resp 18; Temp 97.2; Pulse Ox 99% ; Pain 1/10; bm8 03:45 BP 127 / 54; Pulse 89; Resp 18; Temp 97.2; Pulse Ox 98% ; Pain 0/10; bm8 04:59 BP 109 / 61; Pulse 58; Resp 17; Temp 97.2; Pulse Ox 96% ; Pain 0/10; bm8 00:04 Body Mass Index 33.20 (77.11 kg, 152.4 cm) vc1 00:04 Pain Scale: Adult vc1 01:22 Pain Scale: Adult bm8 02:14 Pain Scale: Adult bm8 03:45 Pain Scale: Adult bm8 04:59 Pain Scale: Adult bm8 Garth Coma Score: 01:22 Eye Response: to voice(3). Motor Response: obeys commands(6). Verbal Response: bm8 confused(4). Total: 13. 02:14 Eye Response: to voice(3). Motor Response: obeys commands(6). Verbal Response: bm8 confused(4). Total: 13. 03:45 Eye Response: to voice(3). Motor Response: obeys commands(6). Verbal Response: bm8 confused(4). Total: 13. 04:59 Eye Response: spontaneous(4). Motor Response: obeys commands(6). Verbal Response: bm8 oriented(5). Total: 15. ED Course: 04/18 23:46 Patient arrived in ED. gm2 04/19 00:07 Triage completed. vc1 00:09 Arm band placed on right wrist. vc1 00:19 Ildefonso Parra PA is PHCP. cp 00:19 Ildefonso Wilks MD is Attending Physician. cp 00:52 Davis Araya RN is Primary Nurse. bm8 01:22 Patient has correct armband on for positive identification. Placed in gown. Bed in low bm8 position. Call light in reach. Side rails up X 1. Client placed on continuous cardiac and pulse oximetry monitoring. NIBP monitoring applied. nuclear monitoring technician on. Pulse ox on. NIBP on. Door closed. Noise minimized. Lights dimmed. Warm blanket given. Pillow given. Verbal reassurance given. Head of bed lowered. 01:22 No provider procedures requiring assistance completed. Initial lab(s) drawn, by mimi cueva sent to lab. Urine collected: clean catch specimen, clear, EKG done, by ED staff, reviewed by Ildefonso TAM. Inserted saline lock: 20 gauge in left antecubital area, using aseptic technique. Blood collected. Flushed with 10 mL NS. Patient maintains SpO2 saturation greater than 95% on room air. 02:14 PO fluids given. bm8 05:23 Provided Education on: post er care. bm8 05:23 IV discontinued, intact, bleeding controlled, No redness/swelling at site. Pressure bm8 dressing applied. Administered Medications: 01:22 Drug: Ativan IVP 1 mg IVP once Route: IVP; Site: left antecubital; bm8 02:16 Follow up: Response: No adverse reaction bm8 01:22 Drug: diphenhydrAMINE IVP 25 mg IVP once Route: IVP; Site: left antecubital; bm8 02:16 Follow up: Response: No adverse reaction bm8 01:22 Drug: metoCLOPramide IVP 10 mg IVP once; over 1 to 2 minutes Route: IVP; Site: left bm8 antecubital; 02:15 Follow up: Response: No adverse reaction bm8 01:22 Drug: Ketorolac IVP 15 mg IVP once Route: IVP; Site: left antecubital; bm8 02:15 Follow up: Response: No adverse reaction bm8 01:22 Drug: NS 0.9% IV 1000 ml IV at 1000 ml once; to be given as a bolus over 60 minutes bm8 Route: IV; Rate: 1000 ml; Site: left antecubital; 02:15 Follow up: Response: No adverse reaction; IV Status: Completed infusion; IV Intake: bm8 1000ml 03:44 Drug: Geodon IM 10 mg IM once Route: IM; Site: right deltoid; bm8 04:51 Follow up: Response: No adverse reaction; No change in condition bm8 04:39 CANCELLED (Physician Discretion): ativan1 mg IVP once cp 04:51 Drug: Ativan IVP 2 mg IVP once Route: IVP; Site: left antecubital; bm8 05:23 Follow up: Response: No adverse reaction bm8 Medication: 00:09 VIS not applicable for this client. vc1 Intake: 02:15 IV: 1000ml; Total: 1000ml. bm8 Outcome: 05:17 Discharge ordered by MD. cp 05:23 Discharged to home ambulatory, with family, bm8 05:23 Condition: stable 05:23 Discharge instructions given to patient, family, Instructed on discharge instructions, follow up and referral plans. medication usage, Demonstrated understanding of instructions, follow-up care, 05:27 Patient left the ED. bm8 Signatures: Ildefonso Parra PA PA cp Amie Ferreira, RN RN vc1 Diann Madison gm2 Davis Araya, RN RN bm8 Corrections: (The following items were deleted from the chart) 03:46 01:22 GCS: 15, bm8 bm8 03:46 02:14 GCS: 15, bm8 bm8 05:33 05:23 Discharged to home ambulatory, bm8 bm8 05:33 05:23 Discharge instructions given to patient, Instructed on discharge instructions, bm8 follow up and referral plans. Demonstrated understanding of instructions, follow-up care, bm8
[2024-04-19 05:33] VITALS: TEMP 97.2
[2024-04-19 05:37] VITALS: BP 109/61; O2SAT 96
== END 2024-04-19 05:27 | disposition home or self-care (01) ==
LOC: ER 23:42
DX: G47.00 Insomnia, unspecified (principal); F31.9 Bipolar disorder, unspecified; F17.210 Nicotine dependence, cigarettes, uncomplicated
CPT/HCPCS: 96361; 93005; 85025; 81001; 80048; 36415; 81025; 85610; 80178; 80076; 85730; 80307; 96375; 96372; 96374; 99285; 80143; 80179; 82077; J2765; J1200; J3486; J7030